=== PATIENT | male | born 1970 | race American Indian/Alaskan Native ===

== ENCOUNTER 2016-10-01 08:33 | Outpatient (CLI) | payer MEDICARE ==
[2016-10-01] MEDS ORDERED: XYLOCAINE TOPICAL 4% TP ONE (09:11)
== END 2016-10-01 08:34 | disposition home or self-care (01) ==
LOC: WOUND 08:33
PROVIDERS: ATTEND Internal Medicine
DX: T87.89 Other complications of amputation stump (principal); E13.43 Other specified diabetes mellitus with diabetic autonomic (poly)neuropathy; E11.65 Type 2 diabetes mellitus with hyperglycemia; I10 Essential (primary) hypertension; E11.40 Type 2 diabetes mellitus with diabetic neuropathy, unspecified; E11.52 Type 2 diabetes mellitus with diabetic peripheral angiopathy with gangrene; E46 Unspecified protein-calorie malnutrition; Z87.891 Personal history of nicotine dependence; Y83.5 Amputation of limb(s) as the cause of abnormal reaction of the patient, or of later complication, without mention of misadventure at the time of the procedure
CPT/HCPCS: 11042; G0463

== ENCOUNTER 2016-10-02 08:50 | Outpatient (CLI) | payer MEDICARE | END 2016-10-02 08:51 | disposition home or self-care (01) | LOC: WOUND 08:50 | PROVIDERS: ATTEND Surgery | DX: T86.828 Other complications of skin graft (allograft) (autograft) (principal); E11.65 Type 2 diabetes mellitus with hyperglycemia; E13.43 Other specified diabetes mellitus with diabetic autonomic (poly)neuropathy; E11.52 Type 2 diabetes mellitus with diabetic peripheral angiopathy with gangrene; I10 Essential (primary) hypertension; E11.40 Type 2 diabetes mellitus with diabetic neuropathy, unspecified; E46 Unspecified protein-calorie malnutrition; Z87.891 Personal history of nicotine dependence; Y83.2 Surgical operation with anastomosis, bypass or graft as the cause of abnormal reaction of the patient, or of later complication, without mention of misadventure at the time of the procedure | CPT/HCPCS: 82962; G0277; 99183 ==

== ENCOUNTER 2016-10-03 09:45 | Outpatient (CLI) | payer MEDICARE | END 2016-10-03 09:46 | disposition home or self-care (01) | LOC: WOUND 09:45 | PROVIDERS: ATTEND Surgery | DX: T86.828 Other complications of skin graft (allograft) (autograft) (principal); E11.65 Type 2 diabetes mellitus with hyperglycemia; E11.52 Type 2 diabetes mellitus with diabetic peripheral angiopathy with gangrene; E11.43 Type 2 diabetes mellitus with diabetic autonomic (poly)neuropathy; E46 Unspecified protein-calorie malnutrition; I10 Essential (primary) hypertension; Z89.422 Acquired absence of other left toe(s); Z98.62 Peripheral vascular angioplasty status; Z87.891 Personal history of nicotine dependence; Y83.2 Surgical operation with anastomosis, bypass or graft as the cause of abnormal reaction of the patient, or of later complication, without mention of misadventure at the time of the procedure | CPT/HCPCS: 82962; G0277; 99183 ==

== ENCOUNTER 2016-10-04 08:52 | Outpatient (CLI) | payer MEDICARE | END 2016-10-04 08:53 | disposition home or self-care (01) | LOC: WOUND 08:52 | PROVIDERS: ATTEND Internal Medicine | DX: T87.89 Other complications of amputation stump (principal); E11.622 Type 2 diabetes mellitus with other skin ulcer; L97.821 Non-pressure chronic ulcer of other part of left lower leg limited to breakdown of skin; L97.811 Non-pressure chronic ulcer of other part of right lower leg limited to breakdown of skin; E11.65 Type 2 diabetes mellitus with hyperglycemia; E13.43 Other specified diabetes mellitus with diabetic autonomic (poly)neuropathy; E11.52 Type 2 diabetes mellitus with diabetic peripheral angiopathy with gangrene; E11.40 Type 2 diabetes mellitus with diabetic neuropathy, unspecified; E46 Unspecified protein-calorie malnutrition; I10 Essential (primary) hypertension; Z87.891 Personal history of nicotine dependence; Y83.5 Amputation of limb(s) as the cause of abnormal reaction of the patient, or of later complication, without mention of misadventure at the time of the procedure | CPT/HCPCS: 82962; G0277; 99183 ==

== ENCOUNTER 2016-10-05 09:10 | Outpatient (CLI) | payer MEDICARE | END 2016-10-05 09:11 | disposition home or self-care (01) | LOC: WOUND 09:10 | PROVIDERS: ATTEND Podiatrist | DX: T87.89 Other complications of amputation stump (principal); E11.622 Type 2 diabetes mellitus with other skin ulcer; L97.821 Non-pressure chronic ulcer of other part of left lower leg limited to breakdown of skin; L97.811 Non-pressure chronic ulcer of other part of right lower leg limited to breakdown of skin; E11.52 Type 2 diabetes mellitus with diabetic peripheral angiopathy with gangrene; E11.65 Type 2 diabetes mellitus with hyperglycemia; E11.43 Type 2 diabetes mellitus with diabetic autonomic (poly)neuropathy; I10 Essential (primary) hypertension; E46 Unspecified protein-calorie malnutrition; Y83.5 Amputation of limb(s) as the cause of abnormal reaction of the patient, or of later complication, without mention of misadventure at the time of the procedure | CPT/HCPCS: 82962; G0277; 99183 ==

== ENCOUNTER 2016-10-08 08:56 | Outpatient (CLI) | payer MEDICARE | END 2016-10-08 08:57 | disposition home or self-care (01) | LOC: WOUND 08:56 | PROVIDERS: ATTEND Surgery | DX: T87.89 Other complications of amputation stump (principal); E11.622 Type 2 diabetes mellitus with other skin ulcer; L97.821 Non-pressure chronic ulcer of other part of left lower leg limited to breakdown of skin; L97.811 Non-pressure chronic ulcer of other part of right lower leg limited to breakdown of skin; E11.65 Type 2 diabetes mellitus with hyperglycemia; E11.43 Type 2 diabetes mellitus with diabetic autonomic (poly)neuropathy; E11.52 Type 2 diabetes mellitus with diabetic peripheral angiopathy with gangrene; E43 Unspecified severe protein-calorie malnutrition; I10 Essential (primary) hypertension; E11.40 Type 2 diabetes mellitus with diabetic neuropathy, unspecified; Z98.62 Peripheral vascular angioplasty status; Z87.891 Personal history of nicotine dependence; Y83.5 Amputation of limb(s) as the cause of abnormal reaction of the patient, or of later complication, without mention of misadventure at the time of the procedure | CPT/HCPCS: 82962; G0277; 99183 ==

== ENCOUNTER 2016-10-09 09:32 | Outpatient (CLI) | payer MEDICARE | END 2016-10-09 09:33 | disposition home or self-care (01) | LOC: WOUND 09:32 | PROVIDERS: ATTEND Surgery | DX: T87.89 Other complications of amputation stump (principal); E11.622 Type 2 diabetes mellitus with other skin ulcer; L97.821 Non-pressure chronic ulcer of other part of left lower leg limited to breakdown of skin; L97.811 Non-pressure chronic ulcer of other part of right lower leg limited to breakdown of skin; E11.65 Type 2 diabetes mellitus with hyperglycemia; E13.43 Other specified diabetes mellitus with diabetic autonomic (poly)neuropathy; E11.52 Type 2 diabetes mellitus with diabetic peripheral angiopathy with gangrene; I10 Essential (primary) hypertension; E43 Unspecified severe protein-calorie malnutrition; Z87.891 Personal history of nicotine dependence; Y83.5 Amputation of limb(s) as the cause of abnormal reaction of the patient, or of later complication, without mention of misadventure at the time of the procedure | CPT/HCPCS: 82962; G0277; 99183 ==

== ENCOUNTER 2016-10-10 09:44 | Outpatient (CLI) | payer MEDICARE | END 2016-10-10 09:45 | disposition home or self-care (01) | LOC: WOUND 09:44 | PROVIDERS: ATTEND Surgery | DX: T87.89 Other complications of amputation stump (principal); E11.622 Type 2 diabetes mellitus with other skin ulcer; L97.821 Non-pressure chronic ulcer of other part of left lower leg limited to breakdown of skin; L97.811 Non-pressure chronic ulcer of other part of right lower leg limited to breakdown of skin; E11.65 Type 2 diabetes mellitus with hyperglycemia; E13.43 Other specified diabetes mellitus with diabetic autonomic (poly)neuropathy; E11.52 Type 2 diabetes mellitus with diabetic peripheral angiopathy with gangrene; I10 Essential (primary) hypertension; E43 Unspecified severe protein-calorie malnutrition; Z98.62 Peripheral vascular angioplasty status; Z87.891 Personal history of nicotine dependence; Y83.5 Amputation of limb(s) as the cause of abnormal reaction of the patient, or of later complication, without mention of misadventure at the time of the procedure | CPT/HCPCS: 82962; G0277; 99183 ==

== ENCOUNTER 2016-10-11 08:44 | Outpatient (CLI) | payer MEDICARE ==
[2016-10-11] MEDS ORDERED: XYLOCAINE TOPICAL 4% TP ONE ×2 (09:12→09:30)
== END 2016-10-11 08:45 | disposition home or self-care (01) ==
LOC: WOUND 08:44
PROVIDERS: ATTEND Nurse Practitioner
DX: T87.89 Other complications of amputation stump (principal); E11.622 Type 2 diabetes mellitus with other skin ulcer; L97.811 Non-pressure chronic ulcer of other part of right lower leg limited to breakdown of skin; E11.65 Type 2 diabetes mellitus with hyperglycemia; E13.43 Other specified diabetes mellitus with diabetic autonomic (poly)neuropathy; E11.52 Type 2 diabetes mellitus with diabetic peripheral angiopathy with gangrene; E11.40 Type 2 diabetes mellitus with diabetic neuropathy, unspecified; E43 Unspecified severe protein-calorie malnutrition; I10 Essential (primary) hypertension; Z87.891 Personal history of nicotine dependence; Y83.5 Amputation of limb(s) as the cause of abnormal reaction of the patient, or of later complication, without mention of misadventure at the time of the procedure
CPT/HCPCS: 11042; 11045; 82962; G0277; 99183

== ENCOUNTER 2016-10-12 09:02 | Outpatient (CLI) | payer MEDICARE | END 2016-10-12 09:03 | disposition home or self-care (01) | LOC: WOUND 09:02 | PROVIDERS: ATTEND Podiatrist | DX: T87.89 Other complications of amputation stump (principal); E11.622 Type 2 diabetes mellitus with other skin ulcer; L97.821 Non-pressure chronic ulcer of other part of left lower leg limited to breakdown of skin; L97.811 Non-pressure chronic ulcer of other part of right lower leg limited to breakdown of skin; E11.52 Type 2 diabetes mellitus with diabetic peripheral angiopathy with gangrene; E11.65 Type 2 diabetes mellitus with hyperglycemia; E13.43 Other specified diabetes mellitus with diabetic autonomic (poly)neuropathy; E11.40 Type 2 diabetes mellitus with diabetic neuropathy, unspecified; I10 Essential (primary) hypertension; E43 Unspecified severe protein-calorie malnutrition; Z87.891 Personal history of nicotine dependence; Y83.5 Amputation of limb(s) as the cause of abnormal reaction of the patient, or of later complication, without mention of misadventure at the time of the procedure | CPT/HCPCS: 82962; G0277; 99183 ==

== ENCOUNTER 2016-10-16 10:00 | Outpatient (CLI) | payer MEDICARE | END 2016-10-16 10:01 | disposition home or self-care (01) | LOC: WOUND 10:00 | PROVIDERS: ATTEND Surgery | DX: T87.89 Other complications of amputation stump (principal); E11.622 Type 2 diabetes mellitus with other skin ulcer; L97.821 Non-pressure chronic ulcer of other part of left lower leg limited to breakdown of skin; L97.811 Non-pressure chronic ulcer of other part of right lower leg limited to breakdown of skin; E11.65 Type 2 diabetes mellitus with hyperglycemia; E13.43 Other specified diabetes mellitus with diabetic autonomic (poly)neuropathy; E11.52 Type 2 diabetes mellitus with diabetic peripheral angiopathy with gangrene; I10 Essential (primary) hypertension; E43 Unspecified severe protein-calorie malnutrition; Z87.891 Personal history of nicotine dependence; Y83.5 Amputation of limb(s) as the cause of abnormal reaction of the patient, or of later complication, without mention of misadventure at the time of the procedure | CPT/HCPCS: 82962; G0277; 99183 ==

== ENCOUNTER 2016-10-17 09:36 | Outpatient (CLI) | payer MEDICARE | END 2016-10-17 09:37 | disposition home or self-care (01) | LOC: WOUND 09:36 | PROVIDERS: ATTEND Surgery | DX: T86.828 Other complications of skin graft (allograft) (autograft) (principal); E11.52 Type 2 diabetes mellitus with diabetic peripheral angiopathy with gangrene; E13.43 Other specified diabetes mellitus with diabetic autonomic (poly)neuropathy; E11.65 Type 2 diabetes mellitus with hyperglycemia; I10 Essential (primary) hypertension; E11.40 Type 2 diabetes mellitus with diabetic neuropathy, unspecified; Z87.891 Personal history of nicotine dependence; Y83.2 Surgical operation with anastomosis, bypass or graft as the cause of abnormal reaction of the patient, or of later complication, without mention of misadventure at the time of the procedure | CPT/HCPCS: 82962; G0277; 99183 ==

== ENCOUNTER 2016-10-18 09:33 | Outpatient (CLI) | payer MEDICARE | END 2016-10-18 09:34 | disposition home or self-care (01) | LOC: WOUND 09:33 | PROVIDERS: ATTEND Nurse Practitioner | DX: T87.89 Other complications of amputation stump (principal); E11.622 Type 2 diabetes mellitus with other skin ulcer; L97.821 Non-pressure chronic ulcer of other part of left lower leg limited to breakdown of skin; L97.811 Non-pressure chronic ulcer of other part of right lower leg limited to breakdown of skin; E11.52 Type 2 diabetes mellitus with diabetic peripheral angiopathy with gangrene; E11.65 Type 2 diabetes mellitus with hyperglycemia; E13.43 Other specified diabetes mellitus with diabetic autonomic (poly)neuropathy; I10 Essential (primary) hypertension; E43 Unspecified severe protein-calorie malnutrition; Z87.891 Personal history of nicotine dependence; Y83.5 Amputation of limb(s) as the cause of abnormal reaction of the patient, or of later complication, without mention of misadventure at the time of the procedure | CPT/HCPCS: 82962; G0277; 99183 ==

== ENCOUNTER 2016-10-18 13:23 | Inpatient (IN) | payer MEDICARE ==
[2016-10-18] MEDS ORDERED: NACL 0.9% 500 ML 500 ML IV ONE (13:37)
[2016-10-18 14:20] LABS: Hematocrit 32.4 % (35.5-45.6); Hemoglobin 9.9 gm/dl (11.8-15.2); Mean Corpuscular HGB Conc 31 % (32-34); Mean Corpuscular Volume 84 fl (84-94); Platelet Count 414 K/mm3 (140-440); Red Blood Count 3.89 M/mm3 (3.65-5.03)
[2016-10-18 14:25] LABS: Alanine Aminotransferase 48 units/L (7-56); Albumin 3.1 g/dL (3.9-5); Albumin/Globulin Ratio 0.6 %; Alkaline Phosphatase 220 units/L (35-129); Anion Gap 22 mmol/L; BUN/Creatinine Ratio 16.66; Blood Urea Nitrogen 10 mg/dL (9-20); Calcium 9.1 mg/dL (8.4-10.2); Carbon Dioxide 25 mmol/L (22-30); Chloride 91.3 mmol/L (98-107); Glucose 349 mg/dL (75-100); Potassium 4.4 mmol/L (3.6-5.0); Sodium 134 mmol/L (137-145); Total Protein 8.1 g/dL (6.3-8.2)
[2016-10-18 14:27] LABS: White Blood Count 22.7 K/mm3 (4.5-11.0)
[2016-10-18 14:28] LABS: Mean Corpuscular Hemoglobin 26 pg (28-32); Red Cell Distribution Width 30.1 % (13.2-15.2)
[2016-10-18 14:32] LABS: INR 1.23 (0.87-1.13)
--- NOTE | 2016-10-18 15:14 | XRay Report ---
AP CHEST: History: Shortness of breath. AP view of the chest demonstrates a normal mediastinal and cardiac contour with clear lungs and normal bony and soft tissue structures. IMPRESSION: Normal AP chest.
[2016-10-18] MEDS ORDERED: ZOSYN/NS 4.5GM/100ML 4.5 GM/100 ML VIAL IV ONE (15:47)
[2016-10-18] MEDS ORDERED: VANCOMYCIN/NS 1 GM/250 ML 1 GM/250 ML BAG IV ONE (15:47)
[2016-10-18] MEDS ORDERED: NACL 0.9% 1000 ML 1,000 ML IV ONE (15:47)
[2016-10-18 15:49] LABS: Basophils % (Manual) 0 % (0.0-1.8); Blastocytes % (Manual) 0 %; Eosinophils % (Manual) 0 % (0.0-4.3)
[2016-10-18 15:50] LABS: Anisocytosis 3+; Hypochromasia 1+
[2016-10-18 15:52] LABS: Diff Status Complete
--- NOTE | 2016-10-18 16:45 | XRay Report ---
Left foot 3 views. History: Pain. Findings: Since the previous study, there has been amputation of the toes at the level of the distal metatarsals. No focal bony changes are seen. There is extensive soft tissue swelling at the level of the amputations. There no other significant findings.
[2016-10-18 18:22] LABS: Bilirubin,Urine NEG (Negative); Blood,Urine SM (Negative); Ketones,Urine 20 mg/dL (Negative); Leukocyte Esterase,Urine NEG (Negative); Nitrite,Urine NEG (Negative); Urobilinogen,Urine < 2.0 mg/dL (<2.0)
--- NOTE | 2016-10-18 18:24 | Emergency Department Report ---
- General Chief Complaint: Wound/Laceration Stated Complaint: INFECTED LEG Time Seen by Provider: 10/18/16 15:39 Source: patient Mode of arrival: Wheelchair Limitations: Physical Limitation - History of Present Illness -: Gradual Extremity Location: Left: Ankle, Foot Place: home Associated Symptoms: pain, loss of feeling/numbness, fever - Related Data Previous Rx's Medication Instructions Recorded Last Taken Type Enoxaparin [Lovenox] 70 mg SUB-Q Q12HR 7 Days 10/23/13 Unknown Rx Enoxaparin [Lovenox] 150 mg SQ Q12HR #10 syringe 09/25/16 Unknown Rx Clindamycin [Clindamycin CAP] 150 mg PO TID #30 capsule 09/28/16 Unknown Rx Enoxaparin [Lovenox] 40 mg SQ Q12HR #10 syringe 09/28/16 Unknown Rx Gabapentin 600 mg PO TID #90 09/28/16 Unknown Rx Humalog Kwikpen 200 UNITS/ML 30 units SQ TID #30 09/28/16 Unknown Rx Insulin NPH/Regular [NovoLIN 70/30] 16 unit SUB-Q BIDDIAB 30 Days 09/28/16 Unknown Rx Lisinopril [Zestril TAB] 20 mg PO QDAY #30 tablet 09/28/16 Unknown Rx Warfarin [Coumadin] 5 mg PO DAILY@1700 #30 tablet 09/28/16 Unknown Rx oxyCODONE /ACETAMINOPHEN [Percocet 1 tab PO Q6H PRN #30 tablet 09/28/16 Unknown Rx 5/325 mg] Clopidogrel [Plavix] 75 mg PO QDAY #30 tablet 09/29/16 Unknown Rx Allergies Allergy/AdvReac Type Severity Reaction Status Date / Time No Known Allergies Allergy Verified 10/18/16 13:37 ED Review of Systems ROS: Stated complaint: INFECTED LEG Other details as noted in HPI Comment: All other systems reviewed and negative ED Past Medical Hx - Past Medical History Hx Hypertension: Yes Hx Congestive Heart Failure: No Hx Diabetes: Yes (Type 1) Hx Pulmonary Embolism: Yes (2013) Hx Sickle Cell Disease: No Hx Arthritis: Yes (present in back) Hx Asthma: No Hx COPD: Yes Hx HIV: No Additional medical history: diabetic neuropathy - Surgical History Additional Surgical History: ?abd surgery secondary to blockage. SPLEEN SURGERY. LEFT TOES AMPUTATED - Social History Smoking Status: Former Smoker Substance Use Type: Prescribed - Medications Home Medications: Home Medications Medication Instructions Recorded Confirmed Last Taken Type Enoxaparin [Lovenox] 70 mg SUB-Q Q12HR 7 Days 10/23/13 Unknown Rx Enoxaparin [Lovenox] 150 mg SQ Q12HR #10 syringe 09/25/16 Unknown Rx Clindamycin [Clindamycin CAP] 150 mg PO TID #30 capsule 09/28/16 Unknown Rx Enoxaparin [Lovenox] 40 mg SQ Q12HR #10 syringe 09/28/16 Unknown Rx Gabapentin 600 mg PO TID #90 09/28/16 Unknown Rx Humalog Kwikpen 200 UNITS/ML 30 units SQ TID #30 09/28/16 Unknown Rx Insulin NPH/Regular [NovoLIN 70/30] 16 unit SUB-Q BIDDIAB 30 Days 09/28/16 Unknown Rx Lisinopril [Zestril TAB] 20 mg PO QDAY #30 tablet 09/28/16 Unknown Rx Warfarin [Coumadin] 5 mg PO DAILY@1700 #30 tablet 09/28/16 Unknown Rx oxyCODONE /ACETAMINOPHEN [Percocet 1 tab PO Q6H PRN #30 tablet 09/28/16 Unknown Rx 5/325 mg] Clopidogrel [Plavix] 75 mg PO QDAY #30 tablet 09/29/16 Unknown Rx ED Physical Exam - General Limitations: Physical Limitation General appearance: alert, in no apparent distress - Head Head exam: Present: atraumatic, normocephalic - Eye Eye exam: Present: normal appearance - ENT ENT exam: Present: mucous membranes moist - Neck Neck exam: Present: normal inspection - Respiratory Respiratory exam: Present: normal lung sounds bilaterally. Absent: respiratory distress - Cardiovascular Cardiovascular Exam: Present: regular rate, normal rhythm. Absent: systolic murmur, diastolic murmur, rubs, gallop - GI/Abdominal GI/Abdominal exam: Present: soft, normal bowel sounds - Rectal Rectal exam: Present: deferred - Extremities Exam Extremities exam: Present: normal inspection - Back Exam Back exam: Present: normal inspection - Neurological Exam Neurological exam: Present: alert, oriented X3 - Psychiatric Psychiatric exam: Present: normal affect, normal mood - Skin Skin exam: Present: erythema. Absent: rash, cyanosis, diaphoretic, urticaria, vesicles, petechiae, pallor, abrasion, ecchymosis (erythema and swelling in the midfoot , progressing celullitis, decrease pedal pulses.) ED Course Vital Signs 10/18/16 10/18/16 10/18/16 13:29 16:40 16:50 Temperature 98.9 F Pulse Rate 103 H 99 H Respiratory 17 12 Rate Blood Pressure 111/71 143/81 143/81 O2 Sat by Pulse 100 100 Oximetry ED Medical Decision Making - Lab Data Result diagrams: 10/18/16 13:47 10/18/16 13:47 - Medical Decision Making will need admission for extensive and progressive cellulitis on his left mid foot. abx given , cxs done and spoke to dr. cole and agree with plan for admission,. Critical care attestation.: If time is entered above; I have spent that time in minutes in the direct care of this critically ill patient, excluding procedure time. ED Disposition Clinical Impression: Ischemic foot, Peripheral vascular disease, Cellulitis, Osteomyelitis Disposition: OP ADMITTED IP TO THIS HOSP Is pt being admited?: Yes Does the pt Need Aspirin: No Condition: Fair Referrals: PRIMARY CARE, [Primary Care Provider] - 3-5 Days Time of Disposition: 18:26
--- NOTE | 2016-10-18 18:33 | Admit Criteria Form ---
Admission Criteria Documentation: CELLULITIS Clinical Indications for Admission to Inpatient Care (Place 'X' for any and all applicable criteria): Admission is indicated for ANY ONE of the following(1)(2)(3)(4)(5): [X]I. Limb-threatening infection [ ]II. High-risk comorbid condition as indicated by ANY ONE of the following: [ ]a) Uncontrolled diabetes (eg, HbA1c greater than 10% (0.1)) [ ]b) Cirrhosis [ ]c) Neutropenia [ ]d) Asplenia [ ]e) Immunosuppression [ ]f) Symptomatic heart failure [ ]III. Failure of outpatient therapy as indicated by ALL of the following: [ ]a) Progression or no improvement after adequate trial (minimum of 48 hours, with longer period for stable lower extremity infection) [ ]b) Adequate antibiotic regimen as indicated by use of ANY ONE of the following: [ ]i) First-generation cephalosporin (e.g., cephalexin) [ ]ii) Antistaphylococcal penicillin (e.g., dicloxacillin) [ ]iii) Penicillin-allergic patient regimen (clindamycin, extended-spectrum fluoroquinolone, or doxycycline) [ ]iv) Resistant organism (eg, methicillin-resistant Staphylococcus aureus) regimen (6) [ ]c) Outpatient intravenous therapy regimen is not appropriate due to ANY ONE of the following. (7)(8)(9)(10): [ ]i) It was tried and was not successful (eg, progression of infection). [ ]ii) It is not available or cannot be arranged in a clinically appropriate time frame (e.g., the next day). [ ]iii) Clinical presentation (eg, acuity of infection, rapidity of progression, confirmed or suspected bacteremia) is judged to require ALL of the following: [ ]1) Immediate initiation of intravenous therapy ( eg, cannot wait for next day) [ ]2) Intensity of patient monitoring and observation (eg, vital sign measurement, checks for infection progression) that cannot be provided at other than inpatient level of care [ ]IV. Mental status changes [ ]V. Bacteremia [ ]. Hemodynamic instability [ ]VII. Suspected necrotizing soft tissue infection (e.g., gas in tissue)(11)( 12) [ ]VIII. Orbital infection (13)(14) [ ]IX. Associated surgical procedure (e.g., abscess drainage, debridement) not amenable to outpatient, emergency department, or observation care [ ]X. Cutaneous gangrene [ ]XI. High fever (temperature greater than 39.5 degrees C (103.1 degrees F) (oral)) not responsive to outpatient, emergency department, or observation care therapy [ ]XIII. Inpatient admission required rather than observation care (Also use Cellulitis: Observation Care as appropriate) because of ANY ONE of the following : [ ]a) Periorbital or perineal infection that is severe or worsening [ ]b) Severe pain requiring acute inpatient management [ ]c) IV fluid to replace significant ongoing (e.g., for over 24 hours) losses (greater than 3L/m2 per day) [ ]d) Compartment syndrome monitoring (17) [ ]e) Strict or protective (eg, laminar flow) isolation [ ]f) Urgent debridement or skin grafting [ ]g) Bone or joint debridement [ ]h) Immediate inpatient surgery [ ]i) Other condition, treatment or monitoring requiring inpatient admission Extended stay beyond goal length of stay may be needed for (1)(18): [ ]a) Necrotizing soft tissue infection or fasciitis [ ]b) Gram-negative infection [ ]c) Methicillin-resistant Staphylococcal aureus (MRSA) infection [ ]d) Peripheral venous insufficiency with cellulitis [ ]e) Extensive edema [ ]f) Sepsis or continued Hemodynamic instability [ ]g) Continued high fever or mental status change [ ]h) Bacteremia [ ]i) Active serious comorbid conditions ( eg, heart failure, renal insufficiency) The original [employer] content created by [employer] has been revised. The portions of the content which have been revised are identified through the use of italic text or in bold, and [facility] has neither reviewed nor approved the modified material. All other unmodified content is copyright [facility] Please see references footnoted in the original [facility] edition 2016 Admission Criteria Met: Yes
[2016-10-18] MEDS ORDERED: ZOFRAN IV PRN ×2 (20:14→21:58)
[2016-10-18] MEDS: DILAUDID IV PRN (20:22)
[2016-10-18] MEDS ORDERED: PERCOCET 5/325 PO PRN (21:56)
--- NOTE | 2016-10-18 21:56 | Event Note ---
Date: 10/18/16 See H/p in reports Gangrene L Foot at surgical site S/p Amputation of Toes l foot IDDM PN HTN PVD
[2016-10-18] MEDS ORDERED: TYLENOL PO PRN (21:58)
[2016-10-18] MEDS ORDERED: DULCOLAX PR PRN (21:58)
[2016-10-18] MEDS ORDERED: AMBIEN PO PRN (21:58)
[2016-10-18] MEDS ORDERED: MILK OF MAGNESIA PO PRN (21:58)
[2016-10-18] MEDS ORDERED: INSULIN LISPRO 30 UNIT SC SCH (22:00)
[2016-10-18] MEDS ORDERED: NACL 0.9% 1000 ML 1,000 ML IV SCH (22:00)
[2016-10-18] MEDS ORDERED: VANCOMYCIN PHARMACY TO DOSE IV SCH (23:00)
[2016-10-19] MEDS: ZESTRIL PO SCH ×2 (00:24→10:45)
[2016-10-19] MEDS: ZOSYN/NS 4.5GM/100ML 4.5 GM/100 ML VIAL IV SCH ×3 (01:00→20:16)
[2016-10-19] MEDS: VANCOMYCIN/NS 1 GM/250 ML 1 GM/250 ML BAG IV SCH ×2 (03:55→18:09)
[2016-10-19] MEDS: DILAUDID IV PRN ×2 (06:39→15:31)
[2016-10-19 07:37] LABS: Hematocrit 29.6 % (35.5-45.6); Hemoglobin 9.3 gm/dl (11.8-15.2); Mean Corpuscular HGB Conc 31 % (32-34); Mean Corpuscular Hemoglobin 26 pg (28-32); Mean Corpuscular Volume 83 fl (84-94); Platelet Count 365 K/mm3 (140-440); Red Blood Count 3.56 M/mm3 (3.65-5.03); Red Cell Distribution Width 30.1 % (13.2-15.2); White Blood Count 16.4 K/mm3 (4.5-11.0)
--- NOTE | 2016-10-19 07:46 | Progress Note ---
Assessment and Plan Assessment and plan: 46-year-old male with extensive history of peripheral arterial disease, that status post a left TMA on 09/27/16, history of PE, diabetes, anemia of chronic disease, 1. sepsis due to Left foot cellulitis/gangrene- due to peripheral arterial disease continue IV abx ID input appreciated, orthopedic surgery input appreciated Appears that his main issue is her for arterial disease, and surgical flap gangrene. Past history surgery consult for possible revascularization or higher level amputation 2. DM with hyperglycemia -continue insulins 3. hx of PE continue warfarin 4. Anemia of Chronic disease stable, monitor hg 5. HTN continue lisinopril History Interval history: She Seems to Complain of Left Foot Pain and Swelling, Pain Is 8 Out Of 10, Dull , New Relieving Factors, No Exacerbating Factors, Denies Fevers and Denies Chills Hospitalist Physical - Physical exam Narrative exam: General: Patient appears well in no distress HEENT: MMM, EOMI cardiac: S1-S2 heard lungs: clear to auscultation, abdomen: soft, nontender, nondistended bowel sounds positive extremities: Left foot swelling, recent TMA with stitches still in place Significant edema, erythema and tenderness, no fluctuance Skin: Erythema of left foot Neuro: no focal deficit Psych: appropriate behavior and mood, cognition intact - Constitutional Vitals: Temp Pulse Resp BP Pulse Ox 98 F 88 18 132/77 98 10/18/16 22:42 10/18/16 22:42 10/18/16 22:42 10/18/16 22:42 10/18/16 22:42 Results - Labs CBC & Chem 7: 10/19/16 07:12 10/19/16 07:12 Labs: Laboratory Last Values WBC 16.4 K/mm3 (4.5-11.0) H 10/19/16 07:12 RBC 3.56 M/mm3 (3.65-5.03) L 10/19/16 07:12 Hgb 9.3 gm/dl (11.8-15.2) L 10/19/16 07:12 Hct 29.6 % (35.5-45.6) L 10/19/16 07:12 MCV 83 fl (84-94) L 10/19/16 07:12 MCH 26 pg (28-32) L 10/19/16 07:12 MCHC 31 % (32-34) L 10/19/16 07:12 RDW 30.1 % (13.2-15.2) H 10/19/16 07:12 Plt Count 365 K/mm3 (140-440) 10/19/16 07:12 Lymph % (Auto) [employer] 10/19/16 07:12 [place] % (Auto) [employer] 10/19/16 07:12 Eos % (Auto) [employer] 10/19/16 07:12 Baso % (Auto) [employer] 10/19/16 07:12 Lymph # [employer] 10/19/16 07:12 [place] # [employer] 10/19/16 07:12 Eos # [employer] 10/19/16 07:12 Baso # [employer] 10/19/16 07:12 Add Manual Diff Complete 10/18/16 13:47 Total Counted 100 10/18/16 13:47 Seg Neutrophils % [employer] 10/19/16 07:12 Seg Neuts % (Manual) 87.0 % (40.0-70.0) H 10/18/16 13:47 Band Neutrophils % 4.0 % 10/18/16 13:47 Lymphocytes % (Manual) 6.0 % (13.4-35.0) L 10/18/16 13:47 Reactive Lymphs % (Man) 0 % 10/18/16 13:47 Monocytes % (Manual) 3.0 % (0.0-7.3) 10/18/16 13:47 Eosinophils % (Manual) 0 % (0.0-4.3) 10/18/16 13:47 Basophils % (Manual) 0 % (0.0-1.8) 10/18/16 13:47 Metamyelocytes % 0 % 10/18/16 13:47 Myelocytes % 0 % 10/18/16 13:47 Promyelocytes % 0 % 10/18/16 13:47 Blast Cells % 0 % 10/18/16 13:47 Nucleated RBC % Not Reportable 10/18/16 13:47 Seg Neutrophils # [employer] 10/19/16 07:12 Seg Neutrophils # Man 19.7 K/mm3 (1.8-7.7) H 10/18/16 13:47 Band Neutrophils # 0.9 K/mm3 10/18/16 13:47 Lymphocytes # (Manual) 1.4 K/mm3 (1.2-5.4) 10/18/16 13:47 Abs React Lymphs (Man) 0.0 K/mm3 10/18/16 13:47 Monocytes # (Manual) 0.7 K/mm3 (0.0-0.8) 10/18/16 13:47 Eosinophils # (Manual) 0.0 K/mm3 (0.0-0.4) 10/18/16 13:47 Basophils # (Manual) 0.0 K/mm3 (0.0-0.1) 10/18/16 13:47 Metamyelocytes # 0.0 K/mm3 10/18/16 13:47 Myelocytes # 0.0 K/mm3 10/18/16 13:47 Promyelocytes # 0.0 K/mm3 10/18/16 13:47 Blast Cells # 0.0 K/mm3 10/18/16 13:47 WBC Morphology Not Reportable 10/18/16 13:47 Hypersegmented Neuts Not Reportable 10/18/16 13:47 Hyposegmented Neuts Not Reportable 10/18/16 13:47 Hypogranular Neuts Not Reportable 10/18/16 13:47 Smudge Cells Not Reportable 10/18/16 13:47 Toxic Granulation Not Reportable 10/18/16 13:47 Toxic Vacuolation Not Reportable 10/18/16 13:47 Dohle Bodies Not Reportable 10/18/16 13:47 Pelger-Huet Anomaly Not Reportable 10/18/16 13:47 Ezra Rods Not Reportable 10/18/16 13:47 Platelet Estimate Not Reportable 10/18/16 13:47 Clumped Platelets Not Reportable 10/18/16 13:47 Plt Clumps, EDTA Not Reportable 10/18/16 13:47 Large Platelets Not Reportable 10/18/16 13:47 Giant Platelets Not Reportable 10/18/16 13:47 Platelet Satelliting Not Reportable 10/18/16 13:47 Plt Morphology Comment Not Reportable 10/18/16 13:47 RBC Morphology Not Reportable 10/18/16 13:47 Dimorphic RBCs Yes 10/18/16 13:47 Polychromasia Not Reportable 10/18/16 13:47 Hypochromasia 1+ 10/18/16 13:47 Poikilocytosis Not Reportable 10/18/16 13:47 Anisocytosis 3+ 10/18/16 13:47 Microcytosis Not Reportable 10/18/16 13:47 Macrocytosis Not Reportable 10/18/16 13:47 Spherocytes Not Reportable 10/18/16 13:47 Pappenheimer Bodies Not Reportable 10/18/16 13:47 Sickle Cells Not Reportable 10/18/16 13:47 Target Cells Not Reportable 10/18/16 13:47 Tear Drop Cells Not Reportable 10/18/16 13:47 Ovalocytes Not Reportable 10/18/16 13:47 Helmet Cells Not Reportable 10/18/16 13:47 [place] Bodies Not Reportable 10/18/16 13:47 [place] Rings Not Reportable 10/18/16 13:47 Yaya Cells Not Reportable 10/18/16 13:47 Bite Cells Not Reportable 10/18/16 13:47 Crenated Cell Not Reportable 10/18/16 13:47 Elliptocytes Not Reportable 10/18/16 13:47 Acanthocytes (Spur) Not Reportable 10/18/16 13:47 Rouleaux Not Reportable 10/18/16 13:47 Hemoglobin C Crystals Not Reportable 10/18/16 13:47 Schistocytes Not Reportable 10/18/16 13:47 Malaria parasites Not Reportable 10/18/16 13:47 Yosef Bodies Not Reportable 10/18/16 13:47 Hem Pathologist Commnt No 10/18/16 13:47 PT 15.4 Sec. (12.2-14.9) H 10/18/16 13:47 INR 1.23 (0.87-1.13) H 10/18/16 13:47 VBG pH 7.351 (7.320-7.420) 10/18/16 13:47 Sodium 134 mmol/L (137-145) L 10/18/16 13:47 Potassium 4.4 mmol/L (3.6-5.0) 10/18/16 13:47 Chloride 91.3 mmol/L (98-107) L 10/18/16 13:47 Carbon Dioxide 25 mmol/L (22-30) 10/18/16 13:47 Anion Gap 22 mmol/L 10/18/16 13:47 BUN 10 mg/dL (9-20) 10/18/16 13:47 Creatinine 0.6 mg/dL (0.8-1.5) L 10/18/16 13:47 Estimated GFR > 60 ml/min 10/18/16 13:47 BUN/Creatinine Ratio 16.66 % 10/18/16 13:47 Glucose 349 mg/dL (75-100) H 10/18/16 13:47 POC Glucose 101 (70-105) 10/19/16 06:32 Lactic Acid 1.30 mmol/L (0.7-2.0) 10/18/16 18:08 Calcium 9.1 mg/dL (8.4-10.2) 10/18/16 13:47 Total Bilirubin 0.30 mg/dL (0.1-1.2) 10/18/16 13:47 AST 43 units/L (5-40) H 10/18/16 13:47 ALT 48 units/L (7-56) 10/18/16 13:47 Alkaline Phosphatase 220 units/L (35-129) H 10/18/16 13:47 Total Protein 8.1 g/dL (6.3-8.2) 10/18/16 13:47 Albumin 3.1 g/dL (3.9-5) L 10/18/16 13:47 Albumin/Globulin Ratio 0.6 % 10/18/16 13:47 Urine Color Yellow (Yellow) 10/18/16 17:35 Urine Turbidity Clear (Clear) 10/18/16 17:35 Urine pH 6.0 (5.0-7.0) 10/18/16 17:35 Ur Specific [place] 1.029 (1.003-1.030) 10/18/16 17:35 Urine Protein 100 mg/dl mg/dL (Negative) 10/18/16 17:35 Urine Glucose (UA) >=500 mg/dL (Negative) 10/18/16 17:35 Urine Ketones 20 mg/dL (Negative) 10/18/16 17:35 Urine Blood Sm (Negative) 10/18/16 17:35 Urine Nitrite Neg (Negative) 10/18/16 17:35 Urine Bilirubin Neg (Negative) 10/18/16 17:35 Urine Urobilinogen < 2.0 mg/dL (<2.0) 06/01/17 17:35 Ur Leukocyte Esterase Neg (Negative) 10/18/16 17:35 Urine WBC (Auto) 1.0 /HPF (0.0-6.0) 10/18/16 17:35 Urine RBC (Auto) 7.0 /HPF (0.0-6.0) 10/18/16 17:35 - Imaging and Cardiology Chest x-ray: image reviewed (no infiltrate) Imaging and Cardiology: Foot xray, left image reviewed extensive left foot edema
[2016-10-19 07:47] LABS: Basophils % (Auto) 0.4 % (0.0-1.8); Eosinophils % (Auto) 2.4 % (0.0-4.3)
[2016-10-19 07:48] LABS: Diff Status Complete
[2016-10-19 07:54] LABS: Alanine Aminotransferase 33 units/L (7-56); Albumin 2.6 g/dL (3.9-5); Albumin/Globulin Ratio 0.6 %; Alkaline Phosphatase 176 units/L (35-129); Anion Gap 15 mmol/L; Blood Urea Nitrogen 8 mg/dL (9-20); Calcium 8.8 mg/dL (8.4-10.2); Carbon Dioxide 28 mmol/L (22-30); Chloride 101.6 mmol/L (98-107); Glucose 95 mg/dL (75-100); Sodium 141 mmol/L (137-145); Total Protein 7.2 g/dL (6.3-8.2)
[2016-10-19] MEDS ORDERED: LOVENOX SUB-Q SCH (10:00)
--- NOTE | 2016-10-19 10:02 | Consultation ---
History of Present Illness - Reason for Consult Consult date: 10/19/16 left foot cellulitis - History of Present Illness Mr. Goncalves is a 46-year-old man with diabetes mellitus and significant infrapopliteal peripheral vascular disease who underwent a left TMA last month. He returns with swelling and concerns for ongoing infection of the stump. He says his blood sugars have been erratic since discharge, mostly in the 200-300s , but dropping to the 100s after hyperbaric oxygen therapy. He was compliant with oral antibiotics and completed them 3 days ago. He says that he developed an acute worsening of pain in his left stump yesterday and was brought to the ED for assessment. The distal aspect is necrotic with surrounding ischemic/ erythematous changes and he says this has been present "ever since the surgery" . He denies fever, chills or other systemtic complaints. A plain film xray showed swelling with no bony abnormalities. He was not able to follow-up in my office due to transportation issues. ID consultation is requested for further antibiotic management. Past History Past Medical History: diabetes, PVD Past Surgical History: Other (left TMA) Medications and Allergies Allergies Allergy/AdvReac Type Severity Reaction Status Date / Time No Known Allergies Allergy Verified 10/18/16 13:37 Home Medications Medication Instructions Recorded Confirmed Last Taken Type Lisinopril [Zestril TAB] 20 mg PO QDAY #30 tablet 09/28/16 10/18/16 Unknown Rx Warfarin [Coumadin] 5 mg PO DAILY@1700 #30 tablet 09/28/16 10/18/16 Unknown Rx oxyCODONE /ACETAMINOPHEN [Percocet 1 tab PO Q6H PRN #30 tablet 09/28/16 Unknown Rx 5/325 mg] Clopidogrel [Plavix] 75 mg PO QDAY #30 tablet 09/29/16 10/18/16 Unknown Rx Gabapentin [Neurontin] 600 mg PO TID 10/18/16 10/18/16 Unknown History Insulin Lispro [Humalog Kwikpen 30 units SC BID 10/18/16 10/18/16 Unknown History 200 UNITS/ML] Active Meds: Active Medications Acetaminophen (Tylenol) 650 mg PO Q4H PRN PRN Reason: Pain MILD(1-3)/Fever >100.5/FARMER Bisacodyl (Dulcolax) 10 mg SC QDAY PRN PRN Reason: Constipation unrelieved by [facility] Clopidogrel Bisulfate (Plavix) 75 mg PO QDAY [facility] Gabapentin (Neurontin) 600 mg PO TID [facility] Heparin Sodium (Porcine) (Heparin) 5,000 unit SUB-Q Q12HR [facility] Hydromorphone HCl (Dilaudid) 1 mg IV Q3H PRN PRN Reason: Pain , Severe (7-10) Last Admin: 10/19/16 06:39 Dose: 1 mg Sodium Chloride (Nacl 0.9% 1000 Ml) 1,000 mls @ 75 mls/hr IV DIRECT [facility] Piperacillin Sod/Tazobactam Sod (Zosyn/Ns 4.5gm/100ml) 4.5 gm in 100 mls @ 200 mls/hr IV Q8H [facility] PRN Reason: Protocol Last Admin: 10/19/16 01:00 Dose: 200 mls/hr Vancomycin HCl (Vancomycin/Ns 1 Gm/250 Ml) 1 gm in 250 mls @ 125 mls/hr IV Q12H [facility] Last Admin: 10/19/16 03:55 Dose: 125 mls/hr Insulin Aspart (Novolog) 30 units SUB-Q BIDDIAB [facility] Insulin Aspart (Novolog) 0 units SUB-Q AC [facility] PRN Reason: Protocol Lisinopril (Zestril) 20 mg PO QDAY [facility] Last Admin: 10/19/16 00:24 Dose: 20 mg Magnesium Hydroxide (Milk Of Magnesia) 30 ml PO Q4H PRN PRN Reason: Constipation Ondansetron HCl (Zofran) 4 mg IV Q8H PRN PRN Reason: N/V unrelieved by [facility] Oxycodone/Acetaminophen (Percocet 5/325) 1 tab PO Q6H PRN PRN Reason: Moder Pain unrelieved by [place] Last Admin: 10/19/16 00:25 Dose: 1 tab Vancomycin HCl (Vancomycin Pharmacy To Dose) 1 each IV PKCONSULT [facility] PRN Reason: Protocol Warfarin Sodium (Coumadin) 5 mg PO DAILY@1700 [facility] PRN Reason: Protocol Warfarin Sodium (Coumadin Pharmacy To Dose) 1 each PO PKCONSULT [facility] PRN Reason: Protocol Zolpidem Tartrate (Ambien) 5 mg PO QHS PRN PRN Reason: Insomnia Last Admin: 10/19/16 00:25 Dose: 5 mg Review of Systems All systems: negative Constitutional: no fever, no chills, no sweats, no poor appetite Cardiovascular: no shortness of breath Respiratory: no cough Gastrointestinal: no nausea, no vomiting, no diarrhea Genitourinary Male: no dysuria Musculoskeletal: prior amputations, other (severe left foot stump pain) Integumentary: no rash, no pruritis Physical Examination - Constitutional Vitals: Vital Signs Temp Pulse Resp BP Pulse Ox 98.4 F 111 H 20 136/82 100 10/19/16 09:00 10/19/16 09:00 10/19/16 09:00 10/19/16 09:00 10/19/16 09:00 Temperature -Last 24 Hours Temperature 98.4 F Temperature 98 F General appearance: Present: no acute distress - EENT ENT: edentulous - Respiratory Respiratory: bilateral: CTA - Cardiovascular Rhythm: regular Heart Sounds: Present: S1 & S2 - Extremities Extremity abnormal: other (left foot stump with necrosis/ thin eschar at the distal aspect around previous incision; remaining portion of foot is edematous, mildly erythematous with mild sloughing, diffuse tenderness to light foot, no crepitus or fluctuance; superficial skin ulceration along left staley) - Abdominal General gastrointestinal: Present: soft, non-tender, non-distended - Integumentary Integumentary: Absent: rash - Psychiatric Psychiatric: appropriate mood/affect - Neurologic Neurologic: no focal deficits Results - Labs CBC & Chem 7: 10/19/16 07:12 10/19/16 07:12 Labs: Abnormal lab results 10/18/16 10/18/16 10/19/16 Range/Units 22:26 22:56 07:12 WBC 16.4 H (4.5-11.0) K/mm3 RBC 3.56 L (3.65-5.03) M/mm3 Hgb 9.3 L (11.8-15.2) gm/dl Hct 29.6 L (35.5-45.6) % MCV 83 L (84-94) fl MCH 26 L (28-32) pg MCHC 31 L (32-34) % RDW 30.1 H (13.2-15.2) % Lymph % (Auto) 7.0 L (13.4-35.0) % Lymph # 1.1 L (1.2-5.4) K/mm3 [place] # 1.2 H (0.0-0.8) K/mm3 Seg Neutrophils % 82.9 H (40.0-70.0) % Seg Neutrophils # 13.3 H (1.8-7.7) K/mm3 BUN (9-20) mg/dL Creatinine (0.8-1.5) mg/dL POC Glucose 303 H 336 H (70-105) Alkaline Phosphatase (35-129) units/L Albumin (3.9-5) g/dL 10/19/16 Range/Units 07:12 WBC (4.5-11.0) K/mm3 RBC (3.65-5.03) M/mm3 Hgb (11.8-15.2) gm/dl Hct (35.5-45.6) % MCV (84-94) fl MCH (28-32) pg MCHC (32-34) % RDW (13.2-15.2) % Lymph % (Auto) (13.4-35.0) % Lymph # (1.2-5.4) K/mm3 [place] # (0.0-0.8) K/mm3 Seg Neutrophils % (40.0-70.0) % Seg Neutrophils # (1.8-7.7) K/mm3 BUN 8 L (9-20) mg/dL Creatinine 0.5 L (0.8-1.5) mg/dL POC Glucose (70-105) Alkaline Phosphatase 176 H (35-129) units/L Albumin 2.6 L (3.9-5) g/dL Microbiology 10/18/16 Unknown Peripheral/Venous Blood Culture - Preliminary Culture in Progress 10/18/16 Unknown Peripheral/Venous Blood Culture - Preliminary Culture in Progress - Imaging and Cardiology Chest x-ray: report reviewed (normal) Assessment and Plan - Patient Problems (1) Cellulitis Current Visit: Yes Status: Acute Qualifiers: Site of cellulitis: extremity Site of cellulitis of extremity: lower extremity Site of cellulitis of trunk: S Laterality: left Qualified Code(s ): L03.116 - Cellulitis of left lower limb Plan to address problem: 1. Okay to continue broad, empiric antibiotics for now given necrotic aspect of cellulitis. 2. Anticipate high-level amputation or revascularization as etiology of foot changes is more vascular than infectious. (2) Peripheral vascular disease Current Visit: Yes Status: Acute Plan to address problem: Per above. Recommend vascular evaluation.
[2016-10-19] MEDS: NEURONTIN PO SCH ×3 (10:36→21:39)
[2016-10-19] MEDS: HEPARIN SUB-Q SCH ×2 (10:36→21:38)
[2016-10-19] MEDS: PLAVIX PO SCH (10:36)
[2016-10-19] MEDS: NOVOLOG SUB-Q SCH ×5 (10:37→18:17)
--- NOTE | 2016-10-19 10:49 | Consultation ---
History of Present Illness - HPI Consult date: 10/19/16 Consult reason: joint pain History of present illness: 46-year-old male who recently underwent a transverse metatarsal amputation of the left foot on 09/26/2016, patient states the leg became increasingly painful therefore he presented to the emergency room for further care. Past History Past Medical History: diabetes, PVD Past Surgical History: Other (left TMA) Medications and Allergies Allergies Allergy/AdvReac Type Severity Reaction Status Date / Time No Known Allergies Allergy Verified 10/18/16 13:37 Home Medications Medication Instructions Recorded Confirmed Last Taken Type Lisinopril [Zestril TAB] 20 mg PO QDAY #30 tablet 09/28/16 10/18/16 Unknown Rx Warfarin [Coumadin] 5 mg PO DAILY@1700 #30 tablet 09/28/16 10/18/16 Unknown Rx oxyCODONE /ACETAMINOPHEN [Percocet 1 tab PO Q6H PRN #30 tablet 09/28/16 Unknown Rx 5/325 mg] Clopidogrel [Plavix] 75 mg PO QDAY #30 tablet 09/29/16 10/18/16 Unknown Rx Gabapentin [Neurontin] 600 mg PO TID 10/18/16 10/18/16 Unknown History Insulin Lispro [Humalog Kwikpen 30 units SC BID 10/18/16 10/18/16 Unknown History 200 UNITS/ML] Active Meds: Active Medications Acetaminophen (Tylenol) 650 mg PO Q4H PRN PRN Reason: Pain MILD(1-3)/Fever >100.5/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 Bisacodyl (Dulcolax) 10 mg [place] QDAY PRN PRN Reason: Constipation unrelieved by MOM Clopidogrel Bisulfate (Plavix) 75 mg PO QDAY [facility] Last Admin: 10/19/16 10:36 Dose: 75 mg Gabapentin (Neurontin) 600 mg PO TID [facility] Last Admin: 10/19/16 10:36 Dose: 600 mg Heparin Sodium (Porcine) (Heparin) 5,000 unit SUB-Q Q12HR [facility] Last Admin: 10/19/16 10:36 Dose: 5,000 unit Hydromorphone HCl (Dilaudid) 1 mg IV Q3H PRN PRN Reason: Pain , Severe (7-10) Last Admin: 10/19/16 06:39 Dose: 1 mg Sodium Chloride (Nacl 0.9% 1000 Ml) 1,000 mls @ 75 mls/hr IV DIRECT [facility] Piperacillin Sod/Tazobactam Sod (Zosyn/Ns 4.5gm/100ml) 4.5 gm in 100 mls @ 200 mls/hr IV Q8H [facility] PRN Reason: Protocol Last Admin: 10/19/16 10:37 Dose: 200 mls/hr Vancomycin HCl (Vancomycin/Ns 1 Gm/250 Ml) 1 gm in 250 mls @ 125 mls/hr IV Q12H [facility] Last Admin: 10/19/16 03:55 Dose: 125 mls/hr Insulin Aspart (Novolog) 30 units SUB-Q BIDDIAB [facility] Last Admin: 10/19/16 10:37 Dose: Not Given Insulin Aspart (Novolog) 0 units SUB-Q AC [facility] PRN Reason: Protocol Lisinopril (Zestril) 20 mg PO QDAY [facility] Last Admin: 10/19/16 00:24 Dose: 20 mg Magnesium Hydroxide (Milk Of Magnesia) 30 ml PO Q4H PRN PRN Reason: Constipation Ondansetron HCl (Zofran) 4 mg IV Q8H PRN PRN Reason: N/V unrelieved by [facility] Oxycodone/Acetaminophen (Percocet 5/325) 1 tab PO Q6H PRN PRN Reason: Moder Pain unrelieved by [place] Last Admin: 10/19/16 00:25 Dose: 1 tab Vancomycin HCl (Vancomycin Pharmacy To Dose) 1 each IV PKCONSULT [facility] PRN Reason: Protocol Warfarin Sodium (Coumadin) 5 mg PO DAILY@1700 [facility] PRN Reason: Protocol Warfarin Sodium (Coumadin Pharmacy To Dose) 1 each PO PKCONSULT [facility] PRN Reason: Protocol Zolpidem Tartrate (Ambien) 5 mg PO QHS PRN PRN Reason: Insomnia Last Admin: 10/19/16 00:25 Dose: 5 mg Physical Examination - Physical exam Narrative exam: Physical examination the left lower extremity is examined revealed the patient to have had a transmetatarsal amputation with dry dark eschar to the dorsum of the stump along with some redness and erythema noted to the hindfoot and distal leg there is no fluctuance noted or pus expressed with palpation Assessment and Plan There is most transmetatarsal amputation with dry gangrene of the dorsal skin flap is cellulitis of the left leg Recommendations- continue IV antibiotics and observation
[2016-10-19] MEDS ORDERED: COUMADIN PO SCH (17:00)
--- NOTE | 2016-10-19 17:36 | Consultation ---
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 Afterwards, he had a left TMA performed on 09/26/2016. He had some darkness of his TMA site which has progressively turned into an dry eschar over the dorsal aspect of the TMA incision. The prolene sutures are still intact and the wound is not open. No evidence of what gangrene. The patient presented to the hospital due to increasing pain at his left TMA site. Upon physical examination, the patient has a palpable left dorsalis pedis pulse. His noninvasive studies demonstrate an adequate [place], and good velocities in his left lower extremity. Past History Past Medical History: diabetes, PVD Past Surgical History: Other (left TMA) Medications and Allergies Allergies Allergy/AdvReac Type Severity Reaction Status Date / Time No Known Allergies Allergy Verified 10/18/16 13:37 Home Medications Medication Instructions Recorded Confirmed Last Taken Type Lisinopril [Zestril TAB] 20 mg PO QDAY #30 tablet 09/28/16 10/18/16 Unknown Rx Warfarin [Coumadin] 5 mg PO DAILY@1700 #30 tablet 09/28/16 10/18/16 Unknown Rx oxyCODONE /ACETAMINOPHEN [Percocet 1 tab PO Q6H PRN #30 tablet 09/28/16 Unknown Rx 5/325 mg] Clopidogrel [Plavix] 75 mg PO QDAY #30 tablet 09/29/16 10/18/16 Unknown Rx Gabapentin [Neurontin] 600 mg PO TID 10/18/16 10/18/16 Unknown History Insulin Lispro [Humalog Kwikpen 30 units SC BID 10/18/16 10/18/16 Unknown History 200 UNITS/ML] Active Meds: Active Medications Acetaminophen (Tylenol) 650 mg PO Q4H PRN PRN Reason: Pain MILD(1-3)/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 >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.5/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 Bisacodyl (Dulcolax) 10 mg [place] QDAY PRN PRN Reason: Constipation unrelieved by MOM Clopidogrel Bisulfate (Plavix) 75 mg PO QDAY [facility] Last Admin: 10/19/16 10:36 Dose: 75 mg Gabapentin (Neurontin) 600 mg PO TID [facility] Last Admin: 10/19/16 15:31 Dose: 600 mg Heparin Sodium (Porcine) (Heparin) 5,000 unit SUB-Q Q12HR [facility] Last Admin: 10/19/16 10:36 Dose: 5,000 unit Hydromorphone HCl (Dilaudid) 2 mg IV Q3H PRN PRN Reason: Pain , Severe (7-10) Last Admin: 10/19/16 15:31 Dose: 2 mg Sodium Chloride (Nacl 0.9% 1000 Ml) 1,000 mls @ 75 mls/hr IV DIRECT [facility] Piperacillin Sod/Tazobactam Sod (Zosyn/Ns 4.5gm/100ml) 4.5 gm in 100 mls @ 200 mls/hr IV Q8H [facility] PRN Reason: Protocol Last Admin: 10/19/16 10:37 Dose: 200 mls/hr Vancomycin HCl (Vancomycin/Ns 1 Gm/250 Ml) 1 gm in 250 mls @ 125 mls/hr IV Q12H [facility] Last Admin: 10/19/16 03:55 Dose: 125 mls/hr Insulin Aspart (Novolog) 30 units SUB-Q BIDDIAB [facility] Last Admin: 10/19/16 10:37 Dose: Not Given Insulin Aspart (Novolog) 0 units SUB-Q AC [facility] PRN Reason: Protocol Last Admin: 10/19/16 15:30 Dose: 8 units Lisinopril (Zestril) 20 mg PO QDAY [facility] Last Admin: 10/19/16 10:45 Dose: 20 mg Magnesium Hydroxide (Milk Of Magnesia) 30 ml PO Q4H PRN PRN Reason: Constipation Ondansetron HCl (Zofran) 4 mg IV Q8H PRN PRN Reason: N/V unrelieved by [facility] Oxycodone/Acetaminophen (Percocet 5/325) 2 tab PO Q6H PRN PRN Reason: Moder Pain unrelieved by [place] Vancomycin HCl (Vancomycin Pharmacy To Dose) 1 each IV PKCONSULT [facility] PRN Reason: Protocol Warfarin Sodium (Coumadin Pharmacy To Dose) 1 each PO PKCONSULT [facility] PRN Reason: Protocol Warfarin Sodium (Coumadin) 7.5 mg PO DAILY@1700 [facility] Zolpidem Tartrate (Ambien) 5 mg PO QHS PRN PRN Reason: Insomnia Last Admin: 10/19/16 00:25 Dose: 5 mg Review of Systems All systems: negative (see HPI) Exam - Constitutional Vitals: Temp Pulse Resp BP Pulse Ox 98.4 F 111 H 20 136/82 100 10/19/16 09:00 10/19/16 09:00 10/19/16 09:00 10/19/16 09:00 10/19/16 09:00 General appearance: Present: no acute distress - EENT Eyes: Present: EOM intact ENT: hearing intact - Respiratory Respiratory effort: normal - Extremities Extremities: abnormal (see history of present illness) - Psychiatric Psychiatric: appropriate mood/affect, cooperative Results - Labs CBC & Chem 7: 10/19/16 07:12 10/19/16 07:12 Labs: Abnormal lab results 10/18/16 10/18/16 10/19/16 Range/Units 22:26 22:56 07:12 WBC 16.4 H (4.5-11.0) K/mm3 RBC 3.56 L (3.65-5.03) M/mm3 Hgb 9.3 L (11.8-15.2) gm/dl Hct 29.6 L (35.5-45.6) % MCV 83 L (84-94) fl MCH 26 L (28-32) pg MCHC 31 L (32-34) % RDW 30.1 H (13.2-15.2) % Lymph % (Auto) 7.0 L (13.4-35.0) % Lymph # 1.1 L (1.2-5.4) K/mm3 [place] # 1.2 H (0.0-0.8) K/mm3 Seg Neutrophils % 82.9 H (40.0-70.0) % Seg Neutrophils # 13.3 H (1.8-7.7) K/mm3 BUN (9-20) mg/dL Creatinine (0.8-1.5) mg/dL POC Glucose 303 H 336 H (70-105) Alkaline Phosphatase (35-129) units/L Albumin (3.9-5) g/dL 10/19/16 10/19/16 Range/Units 07:12 12:06 WBC (4.5-11.0) K/mm3 RBC (3.65-5.03) M/mm3 Hgb (11.8-15.2) gm/dl Hct (35.5-45.6) % MCV (84-94) fl MCH (28-32) pg MCHC (32-34) % RDW (13.2-15.2) % Lymph % (Auto) (13.4-35.0) % Lymph # (1.2-5.4) K/mm3 [place] # (0.0-0.8) K/mm3 Seg Neutrophils % (40.0-70.0) % Seg Neutrophils # (1.8-7.7) K/mm3 BUN 8 L (9-20) mg/dL Creatinine 0.5 L (0.8-1.5) mg/dL POC Glucose 361 H (70-105) Alkaline Phosphatase 176 H (35-129) units/L Albumin 2.6 L (3.9-5) g/dL - Imaging and Cardiology Venous US: report reviewed, image reviewed (arterial) Assessment and Plan 46-year-old male with type 1 diabetes and multiple medical problems with 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 The patient subsequently underwent a TMA of the left foot. No evidence of wet gangrene on physical examination. The patient has leukocytosis. He has warmth of his left foot which could be due to reperfusion edema/changes which were present after revascularization, or could be due to some cellulitis. In order to provide the patient the best chance of limb salvage, would hope to delay any surgical procedures such as debridement. Hopefully, patient's foot will improve with antibiotics and subsequently can continue hyperbaric oxygen with antibiotics which will provide the best chance for healing underneath the eschar and limb salvage. This will allow for delayed debridement by podiatry until hyperbaric oxygen completed. If the patient's foot does not improve with antibiotics, then he may require earlier debridement, and if this is unsuccessful, below-knee amputation. Continue plavix and coumadin.
[2016-10-19] MEDS: COUMADIN PO SCH (18:00)
[2016-10-19] MEDS: PERCOCET 5/325 PO PRN (21:39)
[2016-10-20] MEDS: ZOSYN/NS 4.5GM/100ML 4.5 GM/100 ML VIAL IV SCH ×2 (02:37→08:25)
[2016-10-20] MEDS: DILAUDID IV PRN ×3 (04:53→20:52)
[2016-10-20] MEDS: VANCOMYCIN/NS 1 GM/250 ML 1 GM/250 ML BAG IV SCH (04:59)
[2016-10-20] MEDS: NOVOLOG SUB-Q SCH ×5 (08:25→17:57)
[2016-10-20] MEDS: NEURONTIN PO SCH ×3 (08:25→20:50)
[2016-10-20 08:30] LABS: INR 1.41 (0.87-1.13)
--- NOTE | 2016-10-20 09:35 | Progress Note ---
Assessment and Plan Assessment and plan: 46-year-old male with extensive history of peripheral arterial disease, that status post a left TMA on 09/27/16, history of PE, diabetes, anemia of chronic disease, 1. sepsis due to Left foot cellulitis continue IV abx ID input appreciated, orthopedic surgery input appreciated Vascular surgery consult appreciated Vascular surgery consult appreciated, they do not believe that there is any evidence of wet gangrene. There are impression is that the patient most likely has reperfusion edema/changes and cellulitis. The plan will be to continue patient on antibiotics and hyperbaric oxygen. Which will provide the best chance of healing underneath the eschar and limb salvage which will also allow for delayed debridement by podiatry. However if the patient does not improve he may require earlier debridements and if unsuccessful, will need BKA Continue Plavix and Coumadin 2. DM with hyperglycemia -continue insulins 3. hx of PE continue warfarin 4. Anemia of Chronic disease stable, monitor hg 5. HTN continue lisinopril History Interval history: She Seems to Complain of Left Foot Pain and Swelling, Pain Is 8 Out Of 10, Dull , New Relieving Factors, No Exacerbating Factors, Denies Fevers and Denies Chills Hospitalist Physical - Physical exam Narrative exam: General: Patient appears well in no distress HEENT: MMM, EOMI cardiac: S1-S2 heard lungs: clear to auscultation, abdomen: soft, nontender, nondistended bowel sounds positive extremities: Left foot swelling, recent TMA with stitches still in place Significant edema, erythema and tenderness, no fluctuance Skin: Erythema of left foot Neuro: no focal deficit Psych: appropriate behavior and mood, cognition intact - Constitutional Vitals: Temp Pulse Resp BP Pulse Ox 99.1 F 109 H 18 142/86 100 10/19/16 23:00 10/19/16 23:00 10/20/16 04:53 10/19/16 23:00 10/19/16 23:00 General appearance: Present: no acute distress Results - Labs CBC & Chem 7: 10/19/16 07:12 10/19/16 07:12 Labs: Laboratory Last Values WBC 16.4 K/mm3 (4.5-11.0) H 10/19/16 07:12 RBC 3.56 M/mm3 (3.65-5.03) L 10/19/16 07:12 Hgb 9.3 gm/dl (11.8-15.2) L 10/19/16 07:12 Hct 29.6 % (35.5-45.6) L 10/19/16 07:12 MCV 83 fl (84-94) L 10/19/16 07:12 MCH 26 pg (28-32) L 10/19/16 07:12 MCHC 31 % (32-34) L 10/19/16 07:12 RDW 30.1 % (13.2-15.2) H 10/19/16 07:12 Plt Count 365 K/mm3 (140-440) 10/19/16 07:12 Lymph % (Auto) 7.0 % (13.4-35.0) L 10/19/16 07:12 [place] % (Auto) 7.3 % (0.0-7.3) 10/19/16 07:12 Eos % (Auto) 2.4 % (0.0-4.3) 10/19/16 07:12 Baso % (Auto) 0.4 % (0.0-1.8) 10/19/16 07:12 Lymph # 1.1 K/mm3 (1.2-5.4) L 10/19/16 07:12 [place] # 1.2 K/mm3 (0.0-0.8) H 10/19/16 07:12 Eos # 0.4 K/mm3 (0.0-0.4) 10/19/16 07:12 Baso # 0.1 K/mm3 (0.0-0.1) 10/19/16 07:12 Add Manual Diff Complete 10/19/16 07:12 Total Counted 100 10/18/16 13:47 Seg Neutrophils % 82.9 % (40.0-70.0) H 10/19/16 07:12 Seg Neuts % (Manual) 87.0 % (40.0-70.0) H 10/18/16 13:47 Band Neutrophils % 4.0 % 10/18/16 13:47 Lymphocytes % (Manual) 6.0 % (13.4-35.0) L 10/18/16 13:47 Reactive Lymphs % (Man) 0 % 10/18/16 13:47 Monocytes % (Manual) 3.0 % (0.0-7.3) 10/18/16 13:47 Eosinophils % (Manual) 0 % (0.0-4.3) 10/18/16 13:47 Basophils % (Manual) 0 % (0.0-1.8) 10/18/16 13:47 Metamyelocytes % 0 % 10/18/16 13:47 Myelocytes % 0 % 10/18/16 13:47 Promyelocytes % 0 % 10/18/16 13:47 Blast Cells % 0 % 10/18/16 13:47 Nucleated RBC % Not Reportable 10/18/16 13:47 Seg Neutrophils # 13.3 K/mm3 (1.8-7.7) H 10/19/16 07:12 Seg Neutrophils # Man 19.7 K/mm3 (1.8-7.7) H 10/18/16 13:47 Band Neutrophils # 0.9 K/mm3 10/18/16 13:47 Lymphocytes # (Manual) 1.4 K/mm3 (1.2-5.4) 10/18/16 13:47 Abs React Lymphs (Man) 0.0 K/mm3 10/18/16 13:47 Monocytes # (Manual) 0.7 K/mm3 (0.0-0.8) 10/18/16 13:47 Eosinophils # (Manual) 0.0 K/mm3 (0.0-0.4) 10/18/16 13:47 Basophils # (Manual) 0.0 K/mm3 (0.0-0.1) 10/18/16 13:47 Metamyelocytes # 0.0 K/mm3 10/18/16 13:47 Myelocytes # 0.0 K/mm3 10/18/16 13:47 Promyelocytes # 0.0 K/mm3 10/18/16 13:47 Blast Cells # 0.0 K/mm3 10/18/16 13:47 WBC Morphology Not Reportable 10/18/16 13:47 Hypersegmented Neuts Not Reportable 10/18/16 13:47 Hyposegmented Neuts Not Reportable 10/18/16 13:47 Hypogranular Neuts Not Reportable 10/18/16 13:47 Smudge Cells Not Reportable 10/18/16 13:47 Toxic Granulation Not Reportable 10/18/16 13:47 Toxic Vacuolation Not Reportable 10/18/16 13:47 Dohle Bodies Not Reportable 10/18/16 13:47 Pelger-Huet Anomaly Not Reportable 10/18/16 13:47 Ezra Rods Not Reportable 10/18/16 13:47 Platelet Estimate Not Reportable 10/18/16 13:47 Clumped Platelets Not Reportable 10/18/16 13:47 Plt Clumps, EDTA Not Reportable 10/18/16 13:47 Large Platelets Not Reportable 10/18/16 13:47 Giant Platelets Not Reportable 10/18/16 13:47 Platelet Satelliting Not Reportable 10/18/16 13:47 Plt Morphology Comment Not Reportable 10/18/16 13:47 RBC Morphology Not Reportable 10/18/16 13:47 Dimorphic RBCs Yes 10/18/16 13:47 Polychromasia Not Reportable 10/18/16 13:47 Hypochromasia 1+ 10/18/16 13:47 Poikilocytosis Not Reportable 10/18/16 13:47 Anisocytosis 3+ 10/18/16 13:47 Microcytosis Not Reportable 10/18/16 13:47 Macrocytosis Not Reportable 10/18/16 13:47 Spherocytes Not Reportable 10/18/16 13:47 Pappenheimer Bodies Not Reportable 10/18/16 13:47 Sickle Cells Not Reportable 10/18/16 13:47 Target Cells Not Reportable 10/18/16 13:47 Tear Drop Cells Not Reportable 10/18/16 13:47 Ovalocytes Not Reportable 10/18/16 13:47 Helmet Cells Not Reportable 10/18/16 13:47 [place] Bodies Not Reportable 10/18/16 13:47 [place] Rings Not Reportable 10/18/16 13:47 Yaya Cells Not Reportable 10/18/16 13:47 Bite Cells Not Reportable 10/18/16 13:47 Crenated Cell Not Reportable 10/18/16 13:47 Elliptocytes Not Reportable 10/18/16 13:47 Acanthocytes (Spur) Not Reportable 10/18/16 13:47 Rouleaux Not Reportable 10/18/16 13:47 Hemoglobin C Crystals Not Reportable 10/18/16 13:47 Schistocytes Not Reportable 10/18/16 13:47 Malaria parasites Not Reportable 10/18/16 13:47 Yosef Bodies Not Reportable 10/18/16 13:47 Hem Pathologist Commnt No 10/18/16 13:47 PT 17.2 Sec. (12.2-14.9) H 10/20/16 07:02 INR 1.41 (0.87-1.13) H 10/20/16 07:02 VBG pH 7.351 (7.320-7.420) 10/18/16 13:47 Sodium 141 mmol/L (137-145) D 10/19/16 07:12 Potassium 4.0 mmol/L (3.6-5.0) 10/19/16 07:12 Chloride 101.6 mmol/L (98-107) 10/19/16 07:12 Carbon Dioxide 28 mmol/L (22-30) 10/19/16 07:12 Anion Gap 15 mmol/L 10/19/16 07:12 BUN 8 mg/dL (9-20) L 10/19/16 07:12 Creatinine 0.5 mg/dL (0.8-1.5) L 10/19/16 07:12 Estimated GFR > 60 ml/min 10/19/16 07:12 BUN/Creatinine Ratio 16.00 % 10/19/16 07:12 Glucose 95 mg/dL (75-100) 10/19/16 07:12 POC Glucose 300 (70-105) H 10/20/16 06:11 Lactic Acid 1.30 mmol/L (0.7-2.0) 10/18/16 18:08 Calcium 8.8 mg/dL (8.4-10.2) 10/19/16 07:12 Total Bilirubin 0.20 mg/dL (0.1-1.2) 10/19/16 07:12 AST 24 units/L (5-40) 10/19/16 07:12 ALT 33 units/L (7-56) 10/19/16 07:12 Alkaline Phosphatase 176 units/L (35-129) H 10/19/16 07:12 Total Protein 7.2 g/dL (6.3-8.2) 10/19/16 07:12 Albumin 2.6 g/dL (3.9-5) L 10/19/16 07:12 Albumin/Globulin Ratio 0.6 % 10/19/16 07:12 Urine Color Yellow (Yellow) 10/18/16 17:35 Urine Turbidity Clear (Clear) 10/18/16 17:35 Urine pH 6.0 (5.0-7.0) 10/18/16 17:35 Ur Specific [place] 1.029 (1.003-1.030) 10/18/16 17:35 Urine Protein 100 mg/dl mg/dL (Negative) 10/18/16 17:35 Urine Glucose (UA) >=500 mg/dL (Negative) 10/18/16 17:35 Urine Ketones 20 mg/dL (Negative) 10/18/16 17:35 Urine Blood Sm (Negative) 10/18/16 17:35 Urine Nitrite Neg (Negative) 10/18/16 17:35 Urine Bilirubin Neg (Negative) 10/18/16 17:35 Urine Urobilinogen < 2.0 mg/dL (<2.0) 10/18/16 17:35 Ur Leukocyte Esterase Neg (Negative) 10/18/16 17:35 Urine WBC (Auto) 1.0 /HPF (0.0-6.0) 10/18/16 17:35 Urine RBC (Auto) 7.0 /HPF (0.0-6.0) 10/18/16 17:35
[2016-10-20] MEDS: ZESTRIL PO SCH (11:45)
[2016-10-20] MEDS: PLAVIX PO SCH (11:45)
[2016-10-20] MEDS: HEPARIN SUB-Q SCH ×2 (11:46→21:00)
--- NOTE | 2016-10-20 15:31 | Progress Note ---
Assessment and Plan - Patient Problems (1) Cellulitis Current Visit: Yes Status: Acute Qualifiers: Site of cellulitis: extremity Site of cellulitis of extremity: lower extremity Site of cellulitis of trunk: S Laterality: left Qualified Code(s ): L03.116 - Cellulitis of left lower limb Plan to address problem: 1. Recommendations of vascular surgeon were reviewed. Hopeful salvage of limb with a course of antibiotics, delaying an surgeries or debridement for now. 2. A reasonable empiric, oral option is Levaquin/ Clindamycin for 14-21 days , pending outpatient wound care follow-up for hyperbarics, etc. 3. Will change to this regimen to continue as outpatient. 4. Monitor closely potential interactions of antibiotics with Coumadin. (2) Peripheral vascular disease Current Visit: Yes Status: Acute Plan to address problem: 1. Follow-up results of THEODORE and other vascular studies. Subjective Date of service: 10/20/16 Interval history: Remains afebrile. Repeating THEODORE studies this admission. Continues on empiric Vancomycin and Zosyn. Objective - Exam Narrative Exam: sleeping soundly - Constitutional Vitals: Vital Signs Temp Pulse Resp BP Pulse Ox 99.1 F 100 H 16 120/80 98 10/20/16 07:05 10/20/16 11:45 10/20/16 07:05 10/20/16 11:45 10/20/16 07:05 Temperature -Last 24 Hours Temperature 99.1 F Temperature 99.1 F General appearance: Absent: no acute distress - Respiratory Respiratory: bilateral: CTA - Cardiovascular Rhythm: regular Extremities: abnormal (superficial necrosis of left distal foot with mild erythema along dorsum) - Integumentary Integumentary: no rash - Labs CBC & Chem 7: 10/19/16 07:12 10/19/16 07:12 Labs: Abnormal lab results 10/19/16 10/20/16 10/20/16 Range/Units 21:38 06:11 07:02 PT 17.2 H (12.2-14.9) Sec. INR 1.41 H (0.87-1.13) POC Glucose 156 H 300 H (70-105) 10/20/16 Range/Units 11:44 PT (12.2-14.9) Sec. 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 Bisacodyl (Dulcolax) 10 mg DE QDAY PRN PRN Reason: Constipation unrelieved by MOM Clopidogrel Bisulfate (Plavix) 75 mg PO QDAY [facility] Last Admin: 10/20/16 11:45 Dose: 75 mg Gabapentin (Neurontin) 600 mg PO TID [facility] Last Admin: 10/20/16 13:30 Dose: 600 mg Heparin Sodium (Porcine) (Heparin) 5,000 unit SUB-Q Q12HR [facility] Last Admin: 10/20/16 11:46 Dose: 5,000 unit Hydromorphone HCl (Dilaudid) 2 mg IV Q3H PRN PRN Reason: Pain , Severe (7-10) Last Admin: 10/20/16 13:30 Dose: 2 mg Sodium Chloride (Nacl 0.9% 1000 Ml) 1,000 mls @ 75 mls/hr IV DIRECT SERGEY Piperacillin Sod/Tazobactam Sod (Zosyn/Ns 4.5gm/100ml) 4.5 gm in 100 mls @ 200 mls/hr IV Q8H [facility] PRN Reason: Protocol Last Admin: 10/20/16 08:25 Dose: 200 mls/hr Vancomycin HCl (Vancomycin/Ns 1 Gm/250 Ml) 1 gm in 250 mls @ 125 mls/hr IV Q12H [facility] Last Admin: 10/20/16 04:59 Dose: 125 mls/hr Insulin Aspart (Novolog) 30 units SUB-Q BIDDIAB [facility] Last Admin: 10/20/16 08:25 Dose: 30 units Insulin Aspart (Novolog) 0 units SUB-Q AC [facility] PRN Reason: Protocol Last Admin: 10/20/16 13:12 Dose: 6 units Lisinopril (Zestril) 20 mg PO QDAY [facility] Last Admin: 10/20/16 11:45 Dose: 20 mg Magnesium Hydroxide (Milk Of Magnesia) 30 ml PO Q4H PRN PRN Reason: Constipation Ondansetron HCl (Zofran) 4 mg IV Q8H PRN PRN Reason: N/V unrelieved by Reglan Oxycodone/Acetaminophen (Percocet 5/325) 2 tab PO Q6H PRN PRN Reason: Moder Pain unrelieved by [place] Last Admin: 10/19/16 21:39 Dose: 2 tab Vancomycin HCl (Vancomycin Pharmacy To Dose) 1 each IV PKCONSULT [facility] PRN Reason: Protocol Warfarin Sodium (Coumadin Pharmacy To Dose) 1 each PO PKCONSULT [facility] PRN Reason: Protocol Warfarin Sodium (Coumadin) 7.5 mg PO DAILY@1700 SERGEY Last Admin: 10/19/16 18:00 Dose: 7.5 mg Zolpidem Tartrate (Ambien) 5 mg PO QHS PRN PRN Reason: Insomnia Last Admin: 10/19/16 00:25 Dose: 5 mg
[2016-10-20] MEDS: COUMADIN PO SCH (17:57)
[2016-10-20] MEDS: LEVAQUIN PO SCH (17:58)
[2016-10-20] MEDS: CLEOCIN PO SCH (20:52)
[2016-10-21] MEDS: DILAUDID IV PRN ×2 (04:09→18:12)
[2016-10-21 06:44] LABS: INR 1.37 (0.87-1.13)
[2016-10-21] MEDS: NEURONTIN PO SCH ×3 (09:09→20:40)
[2016-10-21] MEDS: CLEOCIN PO SCH ×3 (09:09→20:40)
[2016-10-21] MEDS: NOVOLOG SUB-Q SCH ×6 (09:10→17:43)
--- NOTE | 2016-10-21 10:04 | Progress Note ---
Assessment and Plan Assessment and plan: 46-year-old male with extensive history of peripheral arterial disease, that status post a left TMA on 09/27/16, history of PE, diabetes, anemia of chronic disease, 1. sepsis due to Left foot cellulitis continue IV abx ID input appreciated, orthopedic surgery input appreciated Vascular surgery consult appreciated Vascular surgery consult appreciated, they do not believe that there is any evidence of wet gangrene. There are impression is that the patient most likely has reperfusion edema/changes and cellulitis. The plan will be to continue patient on antibiotics and hyperbaric oxygen. Which will provide the best chance of healing underneath the eschar and limb salvage which will also allow for delayed debridement by podiatry. However if the patient does not improve he may require earlier debridements and if unsuccessful, will need BKA Continue Plavix and Coumadin 2. DM with hyperglycemia -Glucose was elevated, will increase 7030 dose today 3. hx of PE continue warfarin 4. Anemia of Chronic disease stable, monitor hg 5. HTN continue lisinopril 6. Moderate malnutrition has been counseled on taking having balanced diet Will discuss with case management about arranging transportation for Daily Hyperbaric rx History Interval history: She Seems to Complain of Left Foot Pain and Swelling, Pain Is 8 Out Of 10, Dull , New Relieving Factors, No Exacerbating Factors, Denies Fevers and Denies Chills Hospitalist Physical - Physical exam Narrative exam: General: Patient appears well in no distress HEENT: MMM, EOMI cardiac: S1-S2 heard lungs: clear to auscultation, abdomen: soft, nontender, nondistended bowel sounds positive extremities: Left foot swelling, recent TMA with stitches still in place Significant edema, erythema and tenderness, no fluctuance Skin: Erythema of left foot Neuro: no focal deficit Psych: appropriate behavior and mood, cognition intact - Constitutional Vitals: Temp Pulse Resp BP Pulse Ox 100 F H 117 H 16 131/80 97 10/21/16 08:10 10/21/16 08:10 10/21/16 08:10 10/21/16 08:10 10/21/16 00:25 General appearance: Absent: no acute distress Results - Labs CBC & Chem 7: 10/19/16 07:12 10/19/16 07:12 Labs: Laboratory Last Values WBC 16.4 K/mm3 (4.5-11.0) H 10/19/16 07:12 RBC 3.56 M/mm3 (3.65-5.03) L 10/19/16 07:12 Hgb 9.3 gm/dl (11.8-15.2) L 10/19/16 07:12 Hct 29.6 % (35.5-45.6) L 10/19/16 07:12 MCV 83 fl (84-94) L 10/19/16 07:12 MCH 26 pg (28-32) L 10/19/16 07:12 MCHC 31 % (32-34) L 10/19/16 07:12 RDW 30.1 % (13.2-15.2) H 10/19/16 07:12 Plt Count 365 K/mm3 (140-440) 10/19/16 07:12 Lymph % (Auto) 7.0 % (13.4-35.0) L 10/19/16 07:12 [place] % (Auto) 7.3 % (0.0-7.3) 10/19/16 07:12 Eos % (Auto) 2.4 % (0.0-4.3) 10/19/16 07:12 Baso % (Auto) 0.4 % (0.0-1.8) 10/19/16 07:12 Lymph # 1.1 K/mm3 (1.2-5.4) L 10/19/16 07:12 [place] # 1.2 K/mm3 (0.0-0.8) H 10/19/16 07:12 Eos # 0.4 K/mm3 (0.0-0.4) 10/19/16 07:12 Baso # 0.1 K/mm3 (0.0-0.1) 10/19/16 07:12 Add Manual Diff Complete 10/19/16 07:12 Total Counted 100 10/18/16 13:47 Seg Neutrophils % 82.9 % (40.0-70.0) H 10/19/16 07:12 Seg Neuts % (Manual) 87.0 % (40.0-70.0) H 10/18/16 13:47 Band Neutrophils % 4.0 % 10/18/16 13:47 Lymphocytes % (Manual) 6.0 % (13.4-35.0) L 10/18/16 13:47 Reactive Lymphs % (Man) 0 % 10/18/16 13:47 Monocytes % (Manual) 3.0 % (0.0-7.3) 10/18/16 13:47 Eosinophils % (Manual) 0 % (0.0-4.3) 10/18/16 13:47 Basophils % (Manual) 0 % (0.0-1.8) 10/18/16 13:47 Metamyelocytes % 0 % 10/18/16 13:47 Myelocytes % 0 % 10/18/16 13:47 Promyelocytes % 0 % 10/18/16 13:47 Blast Cells % 0 % 10/18/16 13:47 Nucleated RBC % Not Reportable 10/18/16 13:47 Seg Neutrophils # 13.3 K/mm3 (1.8-7.7) H 10/19/16 07:12 Seg Neutrophils # Man 19.7 K/mm3 (1.8-7.7) H 10/18/16 13:47 Band Neutrophils # 0.9 K/mm3 10/18/16 13:47 Lymphocytes # (Manual) 1.4 K/mm3 (1.2-5.4) 10/18/16 13:47 Abs React Lymphs (Man) 0.0 K/mm3 10/18/16 13:47 Monocytes # (Manual) 0.7 K/mm3 (0.0-0.8) 10/18/16 13:47 Eosinophils # (Manual) 0.0 K/mm3 (0.0-0.4) 10/18/16 13:47 Basophils # (Manual) 0.0 K/mm3 (0.0-0.1) 10/18/16 13:47 Metamyelocytes # 0.0 K/mm3 10/18/16 13:47 Myelocytes # 0.0 K/mm3 10/18/16 13:47 Promyelocytes # 0.0 K/mm3 10/18/16 13:47 Blast Cells # 0.0 K/mm3 10/18/16 13:47 WBC Morphology Not Reportable 10/18/16 13:47 Hypersegmented Neuts Not Reportable 10/18/16 13:47 Hyposegmented Neuts Not Reportable 10/18/16 13:47 Hypogranular Neuts Not Reportable 10/18/16 13:47 Smudge Cells Not Reportable 10/18/16 13:47 Toxic Granulation Not Reportable 10/18/16 13:47 Toxic Vacuolation Not Reportable 10/18/16 13:47 Dohle Bodies Not Reportable 10/18/16 13:47 Pelger-Huet Anomaly Not Reportable 10/18/16 13:47 Ezra Rods Not Reportable 10/18/16 13:47 Platelet Estimate Not Reportable 10/18/16 13:47 Clumped Platelets Not Reportable 10/18/16 13:47 Plt Clumps, EDTA Not Reportable 10/18/16 13:47 Large Platelets Not Reportable 10/18/16 13:47 Giant Platelets Not Reportable 10/18/16 13:47 Platelet Satelliting Not Reportable 10/18/16 13:47 Plt Morphology Comment Not Reportable 10/18/16 13:47 RBC Morphology Not Reportable 10/18/16 13:47 Dimorphic RBCs Yes 10/18/16 13:47 Polychromasia Not Reportable 10/18/16 13:47 Hypochromasia 1+ 10/18/16 13:47 Poikilocytosis Not Reportable 10/18/16 13:47 Anisocytosis 3+ 10/18/16 13:47 Microcytosis Not Reportable 10/18/16 13:47 Macrocytosis Not Reportable 10/18/16 13:47 Spherocytes Not Reportable 10/18/16 13:47 Pappenheimer Bodies Not Reportable 10/18/16 13:47 Sickle Cells Not Reportable 10/18/16 13:47 Target Cells Not Reportable 10/18/16 13:47 Tear Drop Cells Not Reportable 10/18/16 13:47 Ovalocytes Not Reportable 10/18/16 13:47 Helmet Cells Not Reportable 10/18/16 13:47 [place] Bodies Not Reportable 10/18/16 13:47 [place] Rings Not Reportable 10/18/16 13:47 Yaya Cells Not Reportable 10/18/16 13:47 Bite Cells Not Reportable 10/18/16 13:47 Crenated Cell Not Reportable 10/18/16 13:47 Elliptocytes Not Reportable 10/18/16 13:47 Acanthocytes (Spur) Not Reportable 10/18/16 13:47 Rouleaux Not Reportable 10/18/16 13:47 Hemoglobin C Crystals Not Reportable 10/18/16 13:47 Schistocytes Not Reportable 10/18/16 13:47 Malaria parasites Not Reportable 10/18/16 13:47 Yosef Bodies Not Reportable 10/18/16 13:47 Hem Pathologist Commnt No 10/18/16 13:47 PT 16.8 Sec. (12.2-14.9) H 10/21/16 05:37 INR 1.37 (0.87-1.13) H 10/21/16 05:37 VBG pH 7.351 (7.320-7.420) 10/18/16 13:47 Sodium 141 mmol/L (137-145) D 10/19/16 07:12 Potassium 4.0 mmol/L (3.6-5.0) 10/19/16 07:12 Chloride 101.6 mmol/L (98-107) 10/19/16 07:12 Carbon Dioxide 28 mmol/L (22-30) 10/19/16 07:12 Anion Gap 15 mmol/L 10/19/16 07:12 BUN 8 mg/dL (9-20) L 10/19/16 07:12 Creatinine 0.5 mg/dL (0.8-1.5) L 10/19/16 07:12 Estimated GFR > 60 ml/min 10/19/16 07:12 BUN/Creatinine Ratio 16.00 % 10/19/16 07:12 Glucose 95 mg/dL (75-100) 10/19/16 07:12 POC Glucose 411 (70-105) H 10/21/16 06:13 Lactic Acid 1.30 mmol/L (0.7-2.0) 10/18/16 18:08 Calcium 8.8 mg/dL (8.4-10.2) 10/19/16 07:12 Total Bilirubin 0.20 mg/dL (0.1-1.2) 10/19/16 07:12 AST 24 units/L (5-40) 10/19/16 07:12 ALT 33 units/L (7-56) 10/19/16 07:12 Alkaline Phosphatase 176 units/L (35-129) H 10/19/16 07:12 Total Protein 7.2 g/dL (6.3-8.2) 10/19/16 07:12 Albumin 2.6 g/dL (3.9-5) L 10/19/16 07:12 Albumin/Globulin Ratio 0.6 % 10/19/16 07:12 Urine Color Yellow (Yellow) 10/18/16 17:35 Urine Turbidity Clear (Clear) 10/18/16 17:35 Urine pH 6.0 (5.0-7.0) 10/18/16 17:35 Ur Specific [place] 1.029 (1.003-1.030) 10/18/16 17:35 Urine Protein 100 mg/dl mg/dL (Negative) 10/18/16 17:35 Urine Glucose (UA) >=500 mg/dL (Negative) 10/18/16 17:35 Urine Ketones 20 mg/dL (Negative) 10/18/16 17:35 Urine Blood Sm (Negative) 10/18/16 17:35 Urine Nitrite Neg (Negative) 10/18/16 17:35 Urine Bilirubin Neg (Negative) 10/18/16 17:35 Urine Urobilinogen < 2.0 mg/dL (<2.0) 10/18/16 17:35 Ur Leukocyte Esterase Neg (Negative) 10/18/16 17:35 Urine WBC (Auto) 1.0 /HPF (0.0-6.0) 10/18/16 17:35 Urine RBC (Auto) 7.0 /HPF (0.0-6.0) 10/18/16 17:35 Vancomycin Trough 3.8 ug/mL (5.0-20.0) L 10/21/16 05:37
[2016-10-21] MEDS: PLAVIX PO SCH (10:06)
[2016-10-21] MEDS: HEPARIN SUB-Q SCH ×2 (10:06→21:03)
[2016-10-21] MEDS: ZESTRIL PO SCH (10:06)
[2016-10-21] MEDS: PERCOCET 5/325 PO PRN (14:43)
[2016-10-21] MEDS ORDERED: D50W (25GM) IV ONE ×2 (16:38→17:00)
[2016-10-21] MEDS: LEVAQUIN PO SCH (17:41)
[2016-10-21] MEDS: COUMADIN PO SCH (17:41)
[2016-10-21] MEDS ORDERED: XYLOCAINE TOPICAL 2% TP ONE (18:00)
[2016-10-22] MEDS: DILAUDID IV PRN (01:41)
--- NOTE | 2016-10-22 06:20 | Progress Note ---
Assessment and Plan - Patient Problems (1) Cellulitis Current Visit: Yes Status: Acute Qualifiers: Site of cellulitis: extremity Site of cellulitis of extremity: lower extremity Site of cellulitis of trunk: S Laterality: left Qualified Code(s ): L03.116 - Cellulitis of left lower limb Plan to address problem: 1. Current oral antibiotic combination for 14-21 days, but duration based on clinical changes. 2. Monitor for drug-drug interactions with Coumadin. 3. HIV screen. (2) Peripheral vascular disease Current Visit: Yes Status: Acute Plan to address problem: Continuing anticoagulation. Monitoring re-perfusion changes per surgeon. Subjective Date of service: 10/22/16 Interval history: Elevated blood sugar. No new clinical issues. Case management assistance requested for transportation to/from daily hyperbaric therapy. Objective - Constitutional Vitals: Vital Signs Temp Pulse Resp BP Pulse Ox 98.9 F 106 H 18 145/84 97 10/21/16 23:47 10/21/16 23:47 10/22/16 01:41 10/21/16 23:47 10/21/16 23:47 Temperature -Last 24 Hours Temperature 98.9 F Temperature 98.6 F Temperature 100 F General appearance: Present: no acute distress - EENT ENT: edentulous - Respiratory Respiratory effort: normal - Cardiovascular Rhythm: regular Extremities: No edema Extremity abnormal: other (left TMA stump with necrotic edge, erythema at dorum is slightly improved) - Gastrointestinal General gastrointestinal: Present: non-distended - Integumentary Integumentary: no rash - Psychiatric Psychiatric: appropriate mood/affect - Labs CBC & Chem 7: 10/19/16 07:12 10/21/16 17:04 Labs: Abnormal lab results 10/19/16 10/21/16 10/21/16 Range/Units 15:42 05:37 05:37 PT 16.8 H (12.2-14.9) Sec. INR 1.37 H (0.87-1.13) Glucose (75-100) mg/dL POC Glucose > 500 H (70-105) Vancomycin Trough 3.8 L (5.0-20.0) ug/mL 10/21/16 10/21/16 10/21/16 Range/Units 06:13 11:49 16:31 PT (12.2-14.9) Sec. INR (0.87-1.13) Glucose (75-100) mg/dL POC Glucose 411 H 285 H < 40 L (70-105) Vancomycin Trough (5.0-20.0) ug/mL 10/21/16 10/21/16 10/21/16 Range/Units 16:50 17:04 21:27 PT (12.2-14.9) Sec. 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 Bisacodyl (Dulcolax) 10 mg OK QDAY PRN PRN Reason: Constipation unrelieved by MOM Clindamycin HCl (Cleocin) 300 mg PO TID [facility] Last Admin: 10/21/16 20:40 Dose: 300 mg Clopidogrel Bisulfate (Plavix) 75 mg PO QDAY [facility] Last Admin: 10/21/16 10:06 Dose: 75 mg Gabapentin (Neurontin) 600 mg PO TID [facility] Last Admin: 10/21/16 20:40 Dose: 600 mg Heparin Sodium (Porcine) (Heparin) 5,000 unit SUB-Q Q12HR [facility] Last Admin: 10/21/16 21:03 Dose: 5,000 unit Hydromorphone HCl (Dilaudid) 2 mg IV Q3H PRN PRN Reason: Pain , Severe (7-10) Last Admin: 10/22/16 01:41 Dose: 2 mg Sodium Chloride (Nacl 0.9% 1000 Ml) 1,000 mls @ 75 mls/hr IV DIRECT [facility] Last Admin: 10/21/16 06:15 Dose: 75 mls/hr Insulin Aspart (Novolog) 0 units SUB-Q AC [facility] PRN Reason: Protocol Last Admin: 10/21/16 17:41 Dose: Not Given Insulin Aspart (Novolog) 30 units SUB-Q BIDDIAB [facility] Levofloxacin (Levaquin) 750 mg PO Q24H [facility] Last Admin: 10/21/16 17:41 Dose: 750 mg Lisinopril (Zestril) 20 mg PO QDAY [facility] Last Admin: 10/21/16 10:06 Dose: 20 mg Magnesium Hydroxide (Milk Of Magnesia) 30 ml PO Q4H PRN PRN Reason: Constipation Ondansetron HCl (Zofran) 4 mg IV Q8H PRN PRN Reason: N/V unrelieved by [place]lan Oxycodone/Acetaminophen (Percocet 5/325) 2 tab PO Q6H PRN PRN Reason: Moder Pain unrelieved by [place] Last Admin: 10/21/16 14:43 Dose: 2 tab Warfarin Sodium (Coumadin Pharmacy To Dose) 1 each PO PKCONSULT [facility] PRN Reason: Protocol Warfarin Sodium (Coumadin) 7.5 mg PO DAILY@1700 [facility] Last Admin: 10/21/16 17:41 Dose: 7.5 mg Zolpidem Tartrate (Ambien) 5 mg PO QHS PRN PRN Reason: Insomnia Last Admin: 10/19/16 00:25 Dose: 5 mg
[2016-10-22] MEDS: NOVOLOG SUB-Q SCH ×3 (06:39→16:30)
--- NOTE | 2016-10-22 07:40 | Vascular Lab Report ---
LOWER EXTREMITY ARTERIAL PHYSIOLOGIC STUDY: REASON FOR EXAM: Peripheral arterial disease. COMMENTS ON THE RIGHT: Ankle brachial index is not obtained due to non-compressibility of the vessels. This value is abnormal. Toe brachial index is 1.69. This value is elevated. Wound healing is likely. Pulse volume recording at the level of the ankle is normal. Exercise testing was not done. COMMENTS ON THE LEFT: Ankle brachial index is 1.23. This value is normal. Toe brachial index is not obtained due to absence of toes. Pulse volume recording at the level of the ankle is normal. Exercise testing was not done. IMPRESSION: RIGHT: Calcified nonocclusive peripheral vascular disease LEFT:No hemodynamically significant arterial disease.
--- NOTE | 2016-10-22 07:42 | Vascular Lab Report ---
LOWER EXTREMITY ARTERIAL DUPLEX: REASON FOR EXAM: Peripheral arterial disease. COMMENTS ON THE RIGHT: Triphasic waveforms are seen proximally. Biphasic waveforms are seen distally. No significant velocity gradients are identified. Scattered calcified plaque noted throughout the vessels. Findings are consistent with normal perfusion. Findings are consistent with the ability to heal distal wounds. COMMENTS ON THE LEFT: Triphasic waveforms are seen proximally. Monophasic waveforms are seen distally. Patent infrapopliteal stents noted. Calcified scalp like noted throughout the vessels. Findings are consistent with normal perfusion. Findings are consistent with the ability to heal distal wounds. IMPRESSION: RIGHT: Essentially normal arterial flow. LEFT:Essentially normal arterial flow/patent AT/PT stents noted.
[2016-10-22] MEDS ORDERED: NOVOLOG SUB-Q SCH (08:00)
[2016-10-22 08:23] LABS: Mean Corpuscular HGB Conc 29 % (32-34); Mean Corpuscular Volume 87 fl (84-94); Platelet Count 386 K/mm3 (140-440); Red Blood Count 3.35 M/mm3 (3.65-5.03)
[2016-10-22 08:26] LABS: Hematocrit 29.2 % (35.5-45.6); Hemoglobin 8.6 gm/dl (11.8-15.2); Mean Corpuscular Hemoglobin 26 pg (28-32); White Blood Count 28.3 K/mm3 (4.5-11.0)
[2016-10-22 08:27] LABS: Red Cell Distribution Width 28.7 % (13.2-15.2)
[2016-10-22 08:57] LABS: INR 1.74 (0.87-1.13)
[2016-10-22] MEDS: HEPARIN SUB-Q SCH (09:09)
[2016-10-22] MEDS: PLAVIX PO SCH (09:11)
[2016-10-22] MEDS: NEURONTIN PO SCH ×2 (09:11→14:41)
[2016-10-22] MEDS: ZESTRIL PO SCH (09:11)
[2016-10-22] MEDS: CLEOCIN PO SCH ×2 (09:11→14:41)
[2016-10-22] MEDS: PERCOCET 5/325 PO PRN (09:16)
[2016-10-22 10:17] LABS: HIV-1 Antigen p24 Non React (Non React); HIVR-1/2 Ab Non React (Non React)
[2016-10-22 10:20] LABS: Blastocytes % (Manual) 0 %
[2016-10-22 10:21] LABS: Anisocytosis 3+; Diff Status Complete; Hypochromasia 1+
--- NOTE | 2016-10-22 13:52 | Discharge Summary ---
Providers - Providers Date of Admission: 10/18/16 21:58 Attending physician: JASMIN AL MD 10/18/16 22:06 Consult to Physician [CONS] Routine Consulting Provider: DORIAN REED Reason For Exam: Gangrene Place consult to:: DR. REED Notified:: DR. REED Phone number called:: [phone] Was contact made?: Yes If yes, spoke with:: SASHA Elias called:: 09:37 Comment:: BETH NOTIFIED 10/19/16 07:44 Consult to Physician [CONS] Routine Consulting Provider: CARISSA LOCKHART Reason For Exam: left foot cellulitis Place consult to:: DR. LOCKHART Notified:: DR. LOCKHART Phone number called:: [phone] Was contact made?: Yes If yes, spoke with:: DR. LOCKHART Time called:: 09:41 Comment:: BETH NOTIFIED 10/19/16 07:45 Consult to Physician [CONS] Routine Consulting Provider: MERY MARQUES Reason For Exam: left foot infection Place consult to:: DR. MARQUES Notified:: DR. MARQUES Phone number called:: [phone] Was contact made?: Yes If yes, spoke with:: DR. MARQUES Time called:: 09:42 Comment:: BETH NOTIFIED Primary care physician: MABLE MAIER Hospitalization Condition: Fair Hospital course: 46-year-old male with extensive history of peripheral arterial disease, that status post a left TMA on 09/27/16, history of PE, diabetes, anemia of chronic disease, he presented with left foot swelling and pain 1. sepsis due to Left foot cellulitis He was treated with IV antibiotics and transitioned to oral antibiotics prior to discharge Vascular surgery consult appreciated Vascular surgery consult appreciated, they do not believe that there is any evidence of wet gangrene. There are impression is that the patient most likely has reperfusion edema/changes and cellulitis. The plan will be to continue patient on antibiotics and hyperbaric oxygen. Which will provide the best chance of healing underneath the eschar and limb salvage which will also allow for delayed debridement by podiatry. However if the patient does not improve he may require earlier debridements and if unsuccessful, will need BKA Continue Plavix and Coumadin, he said follow-up in bariatric wound care clinic Saturday through Fridays 2. DM with hyperglycemia He was treated with instruments, 3. hx of PE continue warfarin 4. Anemia of Chronic disease stable, monitor hg 5. HTN continue lisinopril 6. Moderate malnutrition has been counseled on having balanced diet Disposition: DC/[place]-06 HOME UNDER HOME [facility] Time spent for discharge: 35 minutes Core Measure Documentation - Palliative Care Palliative Care/ Comfort Measures: Not Applicable - Core Measures Any of the following diagnoses?: none Exam - Physical Exam Narrative exam: General: Patient appears well in no distress HEENT: MMM, EOMI cardiac: S1-S2 heard lungs: clear to auscultation, abdomen: soft, nontender, nondistended bowel sounds positive extremities: Left foot swelling, recent TMA with stitches still in place edema, erythema and tenderness, no fluctuance Skin: Erythema of left foot Neuro: no focal deficit Psych: appropriate behavior and mood, cognition intact - Constitutional Vitals: Temp Pulse Resp BP Pulse Ox 98.6 F 86 18 138/82 97 10/22/16 08:00 10/22/16 08:00 10/22/16 08:00 10/22/16 08:00 10/22/16 08:00 Plan Follow up with: PRIMARY CAREMD [Referring] - 3-5 Days PAMELLA DE LA FUENTE MD [Staff Physician] - 7 Days CARISSA LOCKHART MD [Staff Physician] - 7 Days Forms: Warfarin Discharge Instruction Prescriptions: Clindamycin [Clindamycin CAP] 300 mg PO TID #60 capsule Clopidogrel [Plavix] 75 mg PO QDAY #30 tablet Gabapentin [Neurontin] 600 mg PO TID #90 tablet Insulin Lispro [Humalog Kwikpen 200 UNITS/ML] 30 units SC BID #5 insuln.pen Levofloxacin [Levaquin TAB] 750 mg PO Q24H #20 tablet Lisinopril [Zestril TAB] 20 mg PO QDAY #30 tablet oxyCODONE /ACETAMINOPHEN [Percocet 5/325 mg] 1 tab PO Q6H PRN #30 tablet PRN Reason: Moder Pain Unrelieved By [place] Warfarin [Coumadin] 5 mg PO DAILY@1700 #30 tablet
[2016-10-22 16:53] VITALS: BP 122/70
[2016-10-22] MEDS ORDERED: COUMADIN PO SCH (17:00)
--- NOTE | 2016-10-23 00:16 | Consultation ---
SUBJECTIVE: The patient was visited bedside and appeared to be resting well, but appeared to be anxious. Chart reviewed. Discussed the patient treatment and treatment options. There was no bandage on the patient's foot upon inspection. OBJECTIVE FINDINGS: Reveal mild gangrenous changes at the distal stump with sutures intact. However, at the periphery of the distal stump there appears to be pink tissue noted upon debridement of the periphery of the distal stump; the capillary fill time being less than 5 seconds to the affected area, which was debrided. The foot is warm to touch. Mild swelling noted. Wound appears to be static with slight improvement since the last visit with the patient in office 1 week ago. No odor, no active drainage present. However, the wound appears to be retracting and painful to touch. ASSESSMENT: Status post TMA with gangrenous change; however, optimistic. PLAN: After discussion with the patient treatment and treatment options, debridement of periphery of the surgical site to reveal pink tissue. The patient was recommended to continue with hyperbaric oxygen treatment and to refrain from possible BKA at this time. The patient advised that possible debridement may be needed status post completion of the hyperbaric oxygen treatment and Xylocaine jelly was recommended to be applied to the affected area daily upon bandage change for vasodilation with light bandaging. The patient will return to my office in 3-5 days after discharge for followup. Any additional questions, please contact our podiatrician. JOB# [id number] FER/WINNIE
[2016-10-23] MEDS ORDERED: NOVOLOG SUB-Q SCH (08:00)
== END 2016-10-22 18:07 | disposition home health service (06) | DRG 872 ==
LOC: ED 13:23 → 3A 21:58
PROVIDERS: ADMIT Internal Medicine; ATTEND Internal Medicine
DX: A41.9 Sepsis, unspecified organism (principal); L03.116 Cellulitis of left lower limb; E46 Unspecified protein-calorie malnutrition; E10.65 Type 1 diabetes mellitus with hyperglycemia; M19.90 Unspecified osteoarthritis, unspecified site; J44.9 Chronic obstructive pulmonary disease, unspecified; I10 Essential (primary) hypertension; I73.9 Peripheral vascular disease, unspecified; D63.8 Anemia in other chronic diseases classified elsewhere; E10.40 Type 1 diabetes mellitus with diabetic neuropathy, unspecified; E10.51 Type 1 diabetes mellitus with diabetic peripheral angiopathy without gangrene; Z86.711 Personal history of pulmonary embolism; Z89.422 Acquired absence of other left toe(s); Z68.20 Body mass index [BMI] 20.0-20.9, adult
CPT/HCPCS: 36415; 71010; 80053; 80202; 81001; 82140; 82805; 82947; 82962; 85007; 85025; 85610; 87040; 87086; 87806; 93005; 93010; 93922; 93925; 96361; 96365; 96372; 96375; 99285; J1170; J1644; J1815; J2405; J2543; J3370; J7030

== ENCOUNTER 2016-10-24 09:45 | Outpatient (CLI) | payer MEDICARE ==
--- NOTE | 2016-10-19 11:28 | History and Physical Report ---
CHIEF COMPLAINT: Left foot discoloration for 1 week. HISTORY OF PRESENT ILLNESS: A 46-year-old male who presents to the ER with left foot discoloration. The patient recently had surgery ____ the toe is amputated by foot surgeon, Dr. Marcelo. The flap closure ____, but highly pigmented and black in color at the closure of the flap with some drainage. Also, the patient had some pain, but mostly numbness in the left foot. This has been going on for about a week. No fever. No chills. PAST MEDICAL HISTORY: Significant for hypertension, insulin-dependent diabetes, arthritis, chronic obstructive pulmonary disease, diabetic neuropathy. PAST SURGICAL HISTORY: The patient had intestinal obstruction for which he had surgery. The patient was not clear. The patient also had some splenic surgery, but not splenectomy. Left toe was amputated recently by Dr. Marcelo. SOCIAL HISTORY: He was a smoker until a couple of months ago. FAMILY HISTORY: Significant for hypertension. CURRENT MEDICATIONS: Clindamycin 150 mg 3 times a day, Humalog 30 units subcu t.i.d., insulin NPH 15 units b.i.d., lisinopril 20 mg once a day, Coumadin 5 mg p.o. daily, oxycodone 1 tablet p.o. q. 6 p.r.n. REVIEW OF SYSTEMS: CONSTITUTIONAL: No fever. No chills. HEENT: No sore throat. No postnasal drip. CARDIOVASCULAR AND RESPIRATORY SYSTEM: No shortness of breath. No chest pain. No palpitations. GASTROINTESTINAL: No nausea. No vomiting. No diarrhea. MUSCULOSKELETAL SYSTEM: No joint pains. CENTRAL NERVOUS SYSTEM: No syncope. No seizures. EXTREMITIES: Left foot infected and gangrenous for 1 week. PSYCHIATRIC: No depression. No suicidal ideation. A 14-point review of systems done. PHYSICAL EXAMINATION: GENERAL: Young male, cooperative during examination. VITAL SIGNS: Temperature is 98.9, pulse is 103, respirations are 17, blood pressure is 111/71. HEENT: Unremarkable. Pupils equal and reactive. NECK: Supple. No lymphadenopathy. No thyromegaly. LUNGS: Clear to auscultation and percussion. Good air entry. CARDIOVASCULAR: S1, S2 heard. No gallop. No murmur. No rub. Apical impulse in left fifth intercostal space in midclavicular line. ABDOMEN: Soft and benign. No hepatosplenomegaly. No guarding. No rigidity. Hernial orifices are normal. EXTREMITIES: Left foot gangrenous changes at the site of flap closure on the left foot. It was amputation of all the toes, not transmetatarsal amputation. It was the distal amputation. Gangrenous changes of the flap extending in the left distally 2 cm onto the flap and also to the plantar surface. Slight oozing in the ____. Tenderness present. CENTRAL NERVOUS SYSTEM: Alert and oriented x 4. Nonfocal exam. Decreased sensation in both lower extremities. Pulses were very weak. LABORATORY DATA: Significant for white count of 23,700, H and H is 9.9 and 33.4, platelet count is ____. Sodium is 134, chloride is 91.3, BUN and creatinine is 10 and 0.6. ASSESSMENT AND PLAN: 1. Gangrene of the left distal foot. Surgery was done. The patient may need further amputation, TMA of the left ankle. We will defer to Surgery. Ortho and Vascular Surgery consulted. 2. Anticoagulation. The patient is on Coumadin and Plavix for coronary artery disease. We will hold the Plavix and Coumadin for impending surgery. Heparin 5000 q. 8 for the time being. 3. Peripheral neuropathy. Continue gabapentin 600 mg three times a day. 4. Insulin-dependent diabetes. Continue insulin 30 units twice a day and coverage. 5. Hypertension. Continue lisinopril 20 mg daily. 6. Deep venous thrombosis prophylaxis. Heparin 5000 q. 8. 7. Antibiotics. The patient was started on vancomycin and Zosyn for gangrene. JOB# [id number] VSOlivier/NTS
== END 2016-10-24 09:46 | disposition home or self-care (01) ==
LOC: WOUND 09:45
PROVIDERS: ATTEND Surgery
DX: T86.828 Other complications of skin graft (allograft) (autograft) (principal); E11.65 Type 2 diabetes mellitus with hyperglycemia; E11.43 Type 2 diabetes mellitus with diabetic autonomic (poly)neuropathy; E11.52 Type 2 diabetes mellitus with diabetic peripheral angiopathy with gangrene; I10 Essential (primary) hypertension; E46 Unspecified protein-calorie malnutrition; Z89.422 Acquired absence of other left toe(s); Z87.891 Personal history of nicotine dependence; Y83.2 Surgical operation with anastomosis, bypass or graft as the cause of abnormal reaction of the patient, or of later complication, without mention of misadventure at the time of the procedure
CPT/HCPCS: 82962; G0277; 99183

== ENCOUNTER 2016-10-25 09:55 | Outpatient (CLI) | payer MEDICARE ==
[2016-10-25] MEDS ORDERED: NACL 0.9% IR PRN (16:04)
[2016-10-25] MEDS ORDERED: XYLOCAINE TOPICAL 4% TP ONE (17:00)
== END 2016-10-25 09:56 | disposition home or self-care (01) ==
LOC: WOUND 09:55
PROVIDERS: ATTEND Nurse Practitioner
DX: T87.89 Other complications of amputation stump (principal); E11.622 Type 2 diabetes mellitus with other skin ulcer; L97.821 Non-pressure chronic ulcer of other part of left lower leg limited to breakdown of skin; L97.811 Non-pressure chronic ulcer of other part of right lower leg limited to breakdown of skin; E11.65 Type 2 diabetes mellitus with hyperglycemia; E11.52 Type 2 diabetes mellitus with diabetic peripheral angiopathy with gangrene; E11.43 Type 2 diabetes mellitus with diabetic autonomic (poly)neuropathy; I10 Essential (primary) hypertension; E46 Unspecified protein-calorie malnutrition; Z87.891 Personal history of nicotine dependence; Y83.5 Amputation of limb(s) as the cause of abnormal reaction of the patient, or of later complication, without mention of misadventure at the time of the procedure
CPT/HCPCS: 82962; G0277; G0463; 99183; 99214

== ENCOUNTER 2016-11-10 09:00 | Day surgery (SDC) | payer MEDICARE ==
--- NOTE | 2016-11-10 07:30 | Anesthesia Consultation ---
Anesthesia Consult and Med Hx Date of service: 11/10/16 - Airway Anesthetic Teeth Evaluation: Good ROM Head & Neck: Adequate Mental/Hyoid Distance: Adequate Mallampati Class: Class II - Pulmonary Exam CTA: Yes - Cardiac Exam Cardiac Exam: RRR - Pre-Operative Health Status ASA Pre-Surgery Classification: ASA4 Proposed Anesthetic Plan: MAC - Pulmonary Hx Smoking: Yes (smoked marijuana, quit in august 2016 (did not smake cigarettes) ) Hx Asthma: No Hx Respiratory Symptoms: Yes (PE, 2014. DMITRY high risk.) COPD: No Hx Pneumonia: No Hx Sleep Apnea: No - Cardiovascular System Hx Hypertension: Yes Hx Angina: No Hx Pacemaker: No Hx Peripheral Vascular Disease: Yes - Central Nervous System Hx Neuromuscular Disorder: Yes (peripheral neuropathy) Hx Back Pain: Yes Hx Psychiatric Problems: No - Endocrine Hx End Stage Renal Disease: No Hx Insulin Dependent Diabetes: Yes - Hematic Hx Anemia: Yes Hx Sickle Cell Disease: No - Other Systems Hx Alcohol Use: Yes (beer) Hx Substance Use: Yes (marijuana) Hx Cancer: No
--- NOTE | 2016-11-10 07:35 | Anesthesia Day of Surgery ---
Anesthesia Day of Surgery - Day of Surgery Patient Examined: Yes Patient H&P Reviewed: Yes Patient is NPO: Yes
--- NOTE | 2016-11-10 08:58 | Post Anesthesia Evaluation ---
- Post Anesthesia Evaluation Patient Participated: No (resting comfortably) Airway Patent: Yes Stable Respiratory Function: Yes Nausea/Vomiting: No Temp > 96.8F: Yes Pain Manageable: Yes Adequeate Hydration: Yes Anesthesia Complications: No Block Receding Appropriately: Not Applicable Patient on Ventilator: No
[~2016-11-10 09:00] MED LIST: DIPRIVAN 10 MG/ML IV ONE; NACL 0.9% 1000 ML 1,000 ML IV SCH
[2016-11-10 09:25] VITALS: BP 135/84
--- NOTE | 2016-11-10 14:22 | Operative Report ---
PROCEDURE: EGD. PREOPERATIVE DIAGNOSIS: Iron deficiency anemia. POSTOPERATIVE DIAGNOSES: Prior gastric surgery with small gastric pouch. Small bowel appeared normal. ANESTHESIA: Monitored anesthesia care. COMPLICATIONS: No immediate complications. ESTIMATED BLOOD LOSS: None. DESCRIPTION OF PROCEDURE: After consent was obtained, the patient was placed in left lateral decubitus position. Standard upper Fujinon scope was advanced with direct vision through the mouth and advanced to the suspected distal duodenum versus jejunum without difficulty. The patient tolerated the procedure well. The views of the mucosa were good. FINDINGS: There was mild esophagitis in the lower third of the esophagus otherwise esophagus appeared normal. There is evidence of prior gastric surgery with a small gastric pouch with suture seen at the anastomosis site. The scope was advanced directly into the small bowel and advanced to ____ of the jejunum. The visualized portion of the upper endoscopy appeared normal otherwise. IMPRESSION: Evidence of prior gastric surgery with small gastric pouch. RECOMMENDATIONS: Suspect this may be contributing to the patient's anemia. Unknown detail with the type of surgery, the patient had the reasoning for the surgery. We will proceed with colonoscopy. JOB# [id number] LEXI/NTS
--- NOTE | 2016-11-10 14:23 | Operative Report ---
PROCEDURE: Colonoscopy. PREOPERATIVE DIAGNOSIS: Iron deficiency anemia. POSTOPERATIVE DIAGNOSES: Mild diverticulosis, internal hemorrhoids. ANESTHESIA: Monitored anesthesia care. COMPLICATIONS: No immediate complications. ESTIMATED BLOOD LOSS: None. DESCRIPTION OF PROCEDURE: After consent was obtained, the patient was placed in left lateral decubitus position. The Fujinon colonoscope was inserted through the anus and advanced to the cecum without difficulty. He tolerated the procedure well. The views of the mucosa were fair. The quality of prep was fair. FINDINGS: 1. There is mild diverticulosis scattered throughout the colon. 2. Moderate-sized internal hemorrhoids. 3. Otherwise, no significant findings seen during colonoscopy. IMPRESSION: 1. Mild diverticulosis. 2. Moderate-sized internal hemorrhoids. RECOMMENDATIONS: 1. High-fiber diet daily. 2. Okay to resume anticoagulation from GI perspective. The patient will need IV iron, given poor absorption related to his gastric anatomy. Followup in the GI clinic in 3-4 weeks after discharge. JOB# [id number] LEXI/NTS
== END 2016-11-10 09:01 | disposition home or self-care (01) ==
LOC: GIO 09:00
PROVIDERS: ATTEND Internal Medicine Gastroenterology
DX: K57.30 Diverticulosis of large intestine without perforation or abscess without bleeding (principal); D50.9 Iron deficiency anemia, unspecified; K64.8 Other hemorrhoids; K31.4 Gastric diverticulum; K20.9 Esophagitis, unspecified; F12.21 Cannabis dependence, in remission; E11.42 Type 2 diabetes mellitus with diabetic polyneuropathy; Z98.0 Intestinal bypass and anastomosis status; Z86.711 Personal history of pulmonary embolism; Z87.891 Personal history of nicotine dependence; Z72.89 Other problems related to lifestyle
CPT/HCPCS: J2704

== ENCOUNTER 2016-11-22 13:12 | Outpatient (CLI) | payer MEDICARE ==
[~2016-11-22 13:12] MED LIST changes: -DIPRIVAN 10 MG/ML IV ONE; -NACL 0.9% 1000 ML 1,000 ML IV SCH; +NACL 0.9% 500 ML IR ONE; +WATER FOR IRRIG STERILE IR ONE; +WATER FOR IRRIG STERILE ONE; +XYLOCAINE TOPICAL 4% TP ONE
== END 2016-11-22 13:13 | disposition home or self-care (01) ==
LOC: WOUND 13:12
PROVIDERS: ATTEND Nurse Practitioner
DX: T87.89 Other complications of amputation stump (principal); E11.51 Type 2 diabetes mellitus with diabetic peripheral angiopathy without gangrene; E11.40 Type 2 diabetes mellitus with diabetic neuropathy, unspecified; E46 Unspecified protein-calorie malnutrition; I10 Essential (primary) hypertension; F32.9 Major depressive disorder, single episode, unspecified; Z98.62 Peripheral vascular angioplasty status; Z87.891 Personal history of nicotine dependence; Y83.5 Amputation of limb(s) as the cause of abnormal reaction of the patient, or of later complication, without mention of misadventure at the time of the procedure
CPT/HCPCS: 99215; G0463

== ENCOUNTER 2016-12-27 11:48 | Day surgery (SDC) | payer MEDICARE ==
[~2016-12-27 11:48] MED LIST changes: +CYCLOGYL OD ONE; +CYCLOGYL ONE; +GONAK OD ONE; +GONAK ONE; +IOPIDINE OD ONE; +IOPIDINE ONE; +MYDRIACYL OD ONE; +MYDRIACYL ONE; -NACL 0.9% 500 ML IR ONE; +NEOFRIN OD ONE; +NEOFRIN ONE; +PONTOCAINE IJ ONE; +TETRACAINE 0.5% ONE; +TOBRADEX OD ONE; +TOBRADEX ONE; -WATER FOR IRRIG STERILE IR ONE; -WATER FOR IRRIG STERILE ONE; +XYLOCAINE 2%/ EPI 1:200,000 INFILTRATI ONE; +XYLOCAINE 2%/EPI 1:100,000 INFILTRATI ONE; -XYLOCAINE TOPICAL 4% TP ONE
[2016-12-27] MEDS ORDERED: IOPIDINE OD ONE (12:16)
[2016-12-27] MEDS ORDERED: MYDRIACYL OD ONE (12:16)
[2016-12-27] MEDS ORDERED: NEOFRIN OD ONE (12:16)
[2016-12-27] MEDS ORDERED: XYLOCAINE 2%/EPI 1:100,000 INFILTRATI ONE (12:59)
[2016-12-27] MEDS ORDERED: CYCLOGYL OD ONE (12:59)
[2016-12-27] MEDS ORDERED: GONAK OD ONE (12:59)
[2016-12-27 13:04] VITALS: BP 104/78
[2016-12-27] MEDS ORDERED: TOBRADEX OD ONE (13:28)
== END 2016-12-27 11:49 | disposition home or self-care (01) ==
LOC: OR 11:48
PROVIDERS: ATTEND Specialist
DX: E11.319 Type 2 diabetes mellitus with unspecified diabetic retinopathy without macular edema (principal)
CPT/HCPCS: 82962

== ENCOUNTER 2017-01-03 11:35 | Day surgery (SDC) | payer MEDICARE ==
[~2017-01-03 11:35] MED LIST changes: -CYCLOGYL OD ONE; +CYCLOGYL OU ONE; -GONAK OD ONE; +GONAK OU ONE; -IOPIDINE OD ONE; +IOPIDINE OS ONE; -MYDRIACYL OD ONE; +MYDRIACYL OS ONE; -NEOFRIN OD ONE; +NEOFRIN OS ONE; -TOBRADEX OD ONE; +TOBRADEX OS ONE
[2017-01-03] MEDS ORDERED: XYLOCAINE 2%/EPI 1:100,000 INFILTRATI ONE (12:09)
[2017-01-03] MEDS ORDERED: IOPIDINE OS ONE (12:10)
[2017-01-03] MEDS ORDERED: NEOFRIN OS ONE (12:10)
[2017-01-03] MEDS ORDERED: MYDRIACYL OS ONE (12:10)
[2017-01-03 12:34] VITALS: BP 106/80
[2017-01-03] MEDS ORDERED: TETRACAINE 0.5% ONE (12:36)
[2017-01-03] MEDS ORDERED: PONTOCAINE IJ ONE (12:39)
[2017-01-03] MEDS ORDERED: CYCLOGYL OS ONE (12:39)
[2017-01-03] MEDS ORDERED: GONAK OU ONE (12:39)
[2017-01-03] MEDS ORDERED: TOBRADEX OS ONE (13:09)
--- NOTE | 2017-01-07 11:54 | History and Physical Report ---
CHIEF COMPLAINT: Infected left foot. HISTORY OF PRESENT ILLNESS: A 46-year-old with history of peripheral arterial disease, insulin-dependent diabetes, hypertension, comes in for left foot infection going on for the last about 1 to 2 weeks. Left foot badly infected. No fever, no chills. PAST MEDICAL HISTORY: Significant for hypertension, insulin-dependent diabetes, anticoagulation, and peripheral arterial disease. CURRENT MEDICATIONS: On the chart. PAST SURGICAL HISTORY: Abdominal surgery secondary to blockage, spleen surgery, left toe was amputated. SOCIAL HISTORY: Former smoker. FAMILY HISTORY: Hypertension. REVIEW OF SYSTEMS: Other than left foot pain and left foot ulcer, review of systems essentially negative. PHYSICAL EXAMINATION: GENERAL: A middle-aged male, cooperative during examination. VITAL SIGNS: Blood pressure is 136/86, respirations 16, temperature 98, and pulse is 70. HEENT: Unremarkable. Pupils are equal and reactive. NECK: Supple, no lymphadenopathy, no thyromegaly. LUNGS: Clear to auscultation and percussion. Good air entry. CARDIOVASCULAR: S1, S2 heard. No gallop, no murmur, no rub. Apical impulse in the left fifth intercostal space and midclavicular line. ABDOMEN: Soft and benign. EXTREMITIES: Left foot ulcer with surrounding erythema present. LABORATORY DATA: White count is 22,700. Electrolytes are normal. Sodium was slightly low at 134. ASSESSMENT AND PLAN: 1. Sepsis secondary to left foot cellulitis. The patient was started on broad-spectrum IV antibiotics and vancomycin. 2. Diabetes mellitus with hyperglycemia, insulin dosages adjusted. History of pulmonary embolism, warfarin continued. 3. Anemia of chronic disease. Monitor hemoglobin. 4. Hypertension. Continue lisinopril. 5. Deep venous thrombosis prophylaxis, Lovenox 40 mg subcutaneous daily. 6. History and physical done. JOB# [id number] VSM/NTS
== END 2017-01-03 11:36 | disposition home or self-care (01) ==
LOC: OR 11:35
PROVIDERS: ATTEND Specialist
DX: E11.319 Type 2 diabetes mellitus with unspecified diabetic retinopathy without macular edema (principal)
CPT/HCPCS: 82962

== ENCOUNTER 2017-11-05 11:51 | Outpatient (CLI) | payer MEDICARE ==
--- NOTE | 2017-11-05 12:38 | XRay Report ---
ROUTINE CHEST, TWO VIEWS: HISTORY: Preoperative evaluation, hypertension. The trachea, heart, mediastinal contour, lung roque and bony thorax are unremarkable. IMPRESSION: Unremarkable chest x-ray. No change since 10/18/16.
== END 2017-11-05 11:52 | disposition home or self-care (01) ==
LOC: CARD 11:51
PROVIDERS: ATTEND Family Medicine
DX: Z01.818 Encounter for other preprocedural examination (principal); I10 Essential (primary) hypertension; D50.0 Iron deficiency anemia secondary to blood loss (chronic); E04.1 Nontoxic single thyroid nodule; E10.9 Type 1 diabetes mellitus without complications; M19.90 Unspecified osteoarthritis, unspecified site; Z82.49 Family history of ischemic heart disease and other diseases of the circulatory system; Z89.432 Acquired absence of left foot; Z83.3 Family history of diabetes mellitus
CPT/HCPCS: 71046; 93005; 93010

== ENCOUNTER 2018-07-03 14:35 | Inpatient (IN) | payer MEDICARE ==
[2018-07-03] MEDS ORDERED: D50W (25GM) Syringe IV PRN (15:54)
[2018-07-03] MEDS ORDERED: TYLENOL PO PRN (16:23)
[2018-07-03] MEDS ORDERED: APRESOLINE PO PRN (16:38)
--- NOTE | 2018-07-03 17:08 | History and Physical Report ---
History of Present Illness Date: 07/03/18 Referring Facility: [facility] Chief Complaint: R BKA History of present illness: 47-year-old male with a left BKA who stated he been doing a lot of walking recently. He noticed his right toe had turned hard and black and sought as sistance at the ER. 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 He underwent a guillotine procedure for for his right leg until it could be completed several days later. He underwent antibiotic treatment. His blood sugars were also difficult to control with frequent elevations into the 300 area. Do not see a recent A1c available in the system. He was previously independent. We will work with him to return to a level of independence and if time allows try to have him fitted for his right prosthesis with Metal Hanging Helper prosthetics. Wounds on the left stump will need to heal prior to being L use his left prosthesis again. Patient had some nausea and vomiting accompanied by a low blood sugar prior to being transferred to the rehabilitation unit which delayed his coming over. Per the patient and the nurse seems like it may have been food related and he feels better now. Patient noted to have normal WBC on June 27 however all white count prior to that were elevated up to 37.7 at the high. WBC on 07/02 was 13.1, he has completed an tibiotics we will monitor this for any continued elevation are signs of infectious process. Hemoglobin upon presentation and was 9.5 on June 23, and has slowly decreased to 8.8. We'll continue to monitor. After the patient was medically stabilized they were transferred for further rehabilitation. All available medical records have been reviewed. Plan of care was discussed with patient. Past History Past Medical History: diabetes, hypertension Past Surgical History: Other (L BKA,) Social history: single, lives with family, other (1 level house). denies: smoking, alcohol abuse, prescription drug abuse Family history: CAD, diabetes, hypertension, other (ESRD) Medications and Allergies Allergies Allergy/AdvReac Type Severity Reaction Status Date / Time No Known Allergies Allergy Verified 06/23/18 13:57 Home Medications Medication Instructions Recorded Confirmed Last Taken Type Gabapentin [Neurontin] 600 mg PO TID #90 capsule 11/11/16 06/24/18 Unknown Rx HYDROcodone/APAP 7.5-325 [[place] 1 each PO Q6HR PRN #60 tablet 07/02/18 Unknown Rx 7.5/325] Acetaminophen [Acetaminophen TAB] 650 mg PO Q4H PRN #15 tablet 07/03/18 Unknown Rx Enoxaparin [Lovenox] 40 mg SUB-Q QDAY@1000 #1 syringe 07/03/18 Unknown Rx Insulin Glargine [Lantus VIAL] 10 units SUB-Q QHS #100 units 07/03/18 Unknown Rx Insulin Regular, Human [HumuLIN R] 1 dose SUB-Q ACHS PRN #100 units 07/03/18 Unknown Rx Metoprolol [Lopressor TAB] 25 mg PO BID #60 tablet 07/03/18 Unknown Rx amLODIPine [Norvasc] 10 mg PO QDAY #30 tablet 07/03/18 Unknown Rx Active Meds: Active Medications Acetaminophen (Tylenol) 500 mg PO Q6H PRN PRN Reason: Pain, Mild (1-3) Acetaminophen/Hydrocodone Bitart ([place] 10/325) 1 each PO Q4H PRN PRN Reason: Pain , Severe (7-10) Acetaminophen/Hydrocodone Bitart ([place] 5/325) 1 each PO Q4H PRN PRN Reason: Pain, Moderate (4-6) Amlodipine Besylate (Norvasc) 10 mg PO QDAY SERGEY Dextrose (D50w (25gm) Syringe) 50 ml IV PRN PRN PRN Reason: Hypoglycemia Enoxaparin Sodium (Lovenox) 40 mg SUB-Q QDAY SERGEY Gabapentin (Neurontin) 600 mg PO TID SERGEY Hydralazine HCl (Apresoline) 10 mg PO Q8HR PRN PRN Reason: Hypertension Insulin Glargine (Lantus) 10 units SUB-Q QHS SERGEY Insulin Human Regular (Humulin R) 0 units SUB-Q ACHS SERGEY; Protocol Metoprolol Tartrate (Lopressor) 25 mg PO BID SERGEY Review of Systems All systems: negative (12 systems reviewed and negative unless noted otherwise) Constitutional: fatigue, weakness Cardiovascular: high blood pressure, no chest pain, no edema Respiratory: no cough Gastrointestinal: vomiting, no diarrhea, no constipation Genitourinary Male: no dysuria, no incontinence Musculoskeletal: leg numbness/tingling, prior amputations Integumentary: sores, wounds, no rash, no pruritis Neurological: gait dysfunction Psychiatric: no insomnia Endocrine: high blood sugars Exam - Exam Narrative exam: MUSCULOSKELETAL SPECIALTY EXAM CONSTITUTIONAL: Well developed, well nourished, appropriately groomed LYMPHATIC: No appreciable abnormalities palpable in neck EENT: Visual roque full to confrontation. EOMI. Oropharynx clear, poor dentition he aring intact to soft voice RESPIRATORY: Clear to ascultation bilaterally, no increased work of breathing CARDIOVASCULAR: Regular Rate/ Rhythm, no swelling, edema or tenderness in BUE or BLE. Pulses palpable in all extremities. All extremities warm. GI: + bowel sounds, soft, NTTP, nondistended. INTEGUMENTARY: Normal, no lesion, rash, masses or bruising noted in extremities except for left lower extremity lesions and RLE surgical site MUSCULOSKELETAL: BUE normal without defect, crepitus, subluxation, effusion, arthritic changes or TTP. BLE with bilateral BKA, right in stump protector BUE 4+/5, good ROM, with normal tone. BLE 4/5 good ROM, with normal tone NEURO: CN 2-12 grossly intact. Sensation intact in all extremities. Reflexes 2+ bilaterally at biceps, brachioradialis. Coordination intact in BUE. No tremor noted in 4 extremities. POSTURE and GAIT: Sitting posture good. Balance appears reasonable. Unable to ambulate currently due to bilateral BKA, has prosthesis for left but multiple sores. PSYCH: Alert, orientated x3, affect appears normal. Insight appears intact. - Labs CBC & Chem 7: 07/04/18 07:26 07/04/18 07:26 Assessment and Plan Assessment and plan: Patient was assessed and evaluated for Acute Inpatient Rehab Unit. Due to the patients above-mentioned medical complexity, along with decreased functional mobility and self care, this patient continues to require and be a ppropriate for a comprehensive, multidisciplinary [id number] rehabilitation program. These needs cannot be met in an outpatient or other less intensive setting. The patient would continue to benefit from skilled therapy intervention for at least 3 hours per day, five days a week, with techni ques specific to the needs of the patient to improve function, activities of daily living, and reintegration into the community. The patient continues to require: -- OT to improve ROM, self-care, and learn use of adaptive equipment -- PT to improve strength and balance, functional transfers, and ambulation with energy conservation techniques to improve functional mobility -- CENTRIFUGE SEPARATOR TENDER to address cognitive deficits and swallowing ability -- 24 hour RN to ensure and prevent skin breakdown, promote progressive independence while ensuring safety, ensure education regarding medications, and incorporation of the rehabilitation at the bedside -- 24 hour Mixing Picker Tender to coordinate this interdisciplinary program, and to manage/prevent complications as a result of the patients medical comorbidities. -Plan of care by day 4 -Weekly team conferences With such a program, there is a reasonable certainty that the goals individualized for this patient can be achieved within the specified length of stay. Z47.81 R BKA: Continue PT/OT to improve ability to transfer. Will attempt to get him fitted for prosthesis if time permits. Monitor surgical site. Maintain ROM. Stump protector. I10 Hypertension: continue medications and adjust as needed. Has been elevated on acute side - PRN ordered E11.9 Diabetes: Carb controlled diet, mangaed Blood GLU levels and adjust insulin as needed., will order A1c D62 ABLA: monitor, will check labs and replace as needed. Transfusion if <7. D72.829 Leukocytosi: afebrile. Does not appear septic. Monitor wounds and vitals. Start on Abx if signs point towards infectious cause. Z73.6 ADL dysfunction: OT will work on improving ability to perform ADLs (including assistive devices) to increase independence and decrease caregiver burden and improve functional transfers and mobility training. R26.2 Difficulty walking: PT will work on gait training if we can clear LLE wounds for prsthesis use and advance as appropriate to use of stairs and outside ambulation on uneven surfaces. Will see about being fitted for RLE prothesis. R26.89 Abnormality of gait: PT will work to improve safety and efficiency of gait through neuromotor training and gait training along with instruction on proper use of prosthesis if we can get them in time. M62.81 Muscle weakness: PT & OT will work on strengthening exercises to improve functional strength including mixture of closed and open kinetic chain exercises. R53.81 Debility: PT & OT will work on improving overall functional status to improve participation with ADLs, mobility and social involvement. R53.83 Fatigue: PT & OT will work on improving endurance through aerobic exercises and therapeutic activity while monitoring patients tolerance for activity and vital signs as needed. DVT ppx: Lovenox Pain: Continue physical modalities in therapy and pain medications as needed to achieve functional pain control. Sleep: Monitor and address as needed. Bowel: Monitor and address as needed. Appetite: Monitor and address as needed. Discharge planning: Pending therapy progress and care plan meeting. Will continue discussion with therapy team, SW, patient and family. Restrictions/ Precautions: Falls WB status: NWB until prostheses are available and able to wear Functional Hx: ADLs: Independent Cognition: Independent Mobility: No AD Barriers to Discharge: Decreased mobility and ability to perform self care, balance deficits, weakness Estimated Length of Stay: 14 days Discharge Destination: Home with family POST ADMISSION PHYSICIAN EVALUATION I have examined the patient and find that functional status, medical condition and appropriateness for IRF admission are essentially unchanged from those described in the preadmission screening. Will monitor for worsening wounds or infection of surgical site, DVT/PE, bowel and bladder complications and complications due to hypertension, diabetes, anemia and electrolyte abnormalities. Will attempt to avoid occurrence of these issues or treat them if they present themselves.
[2018-07-03] MEDS: NORCO 10/325 PO PRN (21:39)
[2018-07-03] MEDS: LOPRESSOR PO SCH (21:40)
[2018-07-03] MEDS: NEURONTIN PO SCH (21:40)
[2018-07-03] MEDS: LANTUS SUB-Q SCH (22:39)
[2018-07-03] MEDS: HumuLIN R SUB-Q SCH ×2 (22:40)
[2018-07-04] MEDS: NORCO 10/325 PO PRN ×4 (03:16→17:27)
[2018-07-04] MEDS: HumuLIN R SUB-Q SCH ×4 (07:30→23:17)
[2018-07-04 07:41] LABS: Basophils % (Auto) 0.3 % (0.0-1.8); Eosinophils # (Auto) 0.2 K/mm3 (0.0-0.4); Eosinophils % (Auto) 1.8 % (0.0-4.3); Hematocrit 26.7 % (35.5-45.6); Hemoglobin 8.2 gm/dl (11.8-15.2); Lymphocytes # (Auto) 1.9 K/mm3 (1.2-5.4); Lymphocytes % (Auto) 14.7 % (13.4-35.0); Mean Corpuscular HGB Conc 31 % (32-34); Mean Corpuscular Volume 78 fl (84-94); Monocytes # (Auto) 1.3 K/mm3 (0.0-0.8); Monocytes % (Auto) 10.1 % (0.0-7.3); Platelet Count 593 K/mm3 (140-440); Red Blood Count 3.42 M/mm3 (3.65-5.03); Red Cell Distribution Width 18.6 % (13.2-15.2)
[2018-07-04 08:06] LABS: Alanine Aminotransferase 19 units/L (7-56); Albumin 2.8 g/dL (3.9-5); BUN/Creatinine Ratio 21; Blood Urea Nitrogen 21 mg/dL (9-20); Calcium 8.8 mg/dL (8.4-10.2); Hemolysis Index 5
[2018-07-04] MEDS: NEURONTIN PO SCH ×3 (09:19→20:00)
[2018-07-04] MEDS: LOVENOX SUB-Q SCH (09:19)
[2018-07-04] MEDS: NORVASC PO SCH (09:20)
[2018-07-04] MEDS: LOPRESSOR PO SCH ×2 (09:20→22:01)
--- NOTE | 2018-07-04 11:50 | Progress Note ---
Subjective Date of service: 07/04/18 Principal diagnosis: R BKA Interval history: 47-year-old male with a left BKA who stated he been doing a lot of walking recently. He noticed his right toe had turned hard and black and sought assistance at the ER. 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 He underwent a guillotine procedure for for his right leg until it could be completed several days later. He underwent antibiotic treatment. His blood sugars were also difficult to control with frequent elevations into the 300 area. Do not see a recent A1c available in the system. He was previously independent. We will work with him to return to a level of independence and if time allows try to have him fitted for his right prosthesis with Mechanical Applications Engineer prosthetics. Wounds on the left stump will need to heal prior to being L use his left prosthesis again. Patient had some nausea and vomiting accompanied by a low blood sugar prior to being transferred to the rehabilitation unit which delayed his coming over. Per the patient and the nu rse seems like it may have been food related and he feels better now. Patient noted to have normal WBC on June 27 however all white count prior to that were elevated up to 37.7 at the high. WBC on 07/02 was 13.1, he has completed antibiotics we will monitor this for any continued elevation are signs of infectious process. Hemoglobin upon presentation and was 9.5 on June 23, and has slowly decreased to 8.8. We'll continue to monitor. Patient is participating in therapy and making reasonable progress. Taking rest breaks as needed. +BM. Denies palpitations, dyspnea, cough, N/V, weakness, or joint pain. Discussed his blood glucose control which he says is poorly controlled at home. Did find out that he is a type 1 diabetic type 2 which was listed in the system. Pain is somewhat controlled with current medications however does sound like he can use short course of something for breakthrough. We'll monitor his leukocytosis as it is elevated again today. Still does not have fever, does not appear septic. Anemia workup ordered, likely combination of acute blood loss and chronic disease. Elevated alkaline phosphatase noted, no pain noted in area of gallbladder, likely related to amputation and chronic disease. Will monitor. All records, vitals, labs and medications were reviewed. No other issues per patient, nursing or therapy. Objective - Exam Narrative Exam: MUSCULOSKELETAL SPECIALTY EXAM CONSTITUTIONAL: Well developed, well nourished, appropriately groomed LYMPHATIC: No appreciable abnormalities palpable in neck EENT: Visual roque full to confrontation. EOMI. Oropharynx clear, poor dentition hearing intact to soft voice RESPIRATORY: Clear to ascultation bilaterally, no increased work of breathing CARDIOVASCULAR: Regular Rate/ Rhythm, no swelling, edema or tenderness in BUE or BLE. Pulses palpable in all extremities. All extremities warm. GI: + bowel sounds, soft, NTTP, nondistended. INTEGUMENTARY: Normal, no lesion, rash, masses or bruising noted in extremities except for left lower extremity lesions and RLE surgical site MUSCULOSKELETAL: BUE normal without defect, crepitus, subluxation, effusion, arthritic changes or TTP. BLE with bilateral BKA, right in stump protector BUE 4+/5, good ROM, with normal tone. BLE 4/5 good ROM, with normal tone NEURO: CN 2-12 grossly intact. Sensation intact in all extremities. Reflexes 2+ bilaterally at biceps, brachioradialis. Coordination intact in BUE. No tremor noted in 4 extremities. POSTURE and GAIT: Sitting posture good. Balance appears reasonable. Unable to ambulate currently due to bilateral BKA, has prosthesis for left but multiple sores. PSYCH: Alert, orientated x3, affect appears normal. Insight appears intact. - Constitutional Vitals: Vital Signs - 12hr 07/04/18 07/04/18 07/04/18 03:16 05:12 07:30 Temperature 37.0 C 37.1 C Pulse Rate 83 84 Respiratory 18 20 18 Rate Blood Pressure 127/79 Blood Pressure 147/86 [Right] O2 Sat by Pulse 92 99 Oximetry 07/04/18 07/04/18 09:19 09:20 Temperature Pulse Rate 84 Respiratory 20 Rate Blood Pressure 147/86 Blood Pressure [Right] O2 Sat by Pulse Oximetry - Allied health notes FIMS assessment as documented by PT/OT/ST: Social interaction/Memory/Problem solving Social Interaction FIM Score 7. Complete [place] (Interacts appropriately. Controls temper.) Memory FIM Score 5. Supervision (Needs cueing <10%, stressful/ unfamiliar situations.) Problem Solving FIM Score 5. Supervision (Needs cueing <10% to solve routine problems.) Transfers Mode of Locomotion: Wheelchair Bed/Chair/Wheelchair Transfers 4. Minimal Assistance (Patient = 75% or more. FIM Score Needs touching.) Locomotion- Stairs Stairs FIM Score 0. Activity does not occur Locomotion- walk/wheelchair Most Frequent Mode of Walking Locomotion: Walking FIM Score 0. Activity does not occur Wheelchair Propulsion Distance 500 Wheelchair FIM Score 4. Minimal Assistance (Patient = 75% or more. Minimum of 150 ft.) Eating Eating Device Adjusted Table Height Eating FIM Score 7. Complete [place] (Cuts meat, opens containers, regular diet.) - Labs CBC & Chem 7: 07/04/18 07:26 07/04/18 07:26 Labs: Laboratory Results - last 72 hr 07/04/18 07/04/18 07/04/18 07:26 07:26 07:47 WBC 12.8 H RBC 3.42 L Hgb 8.2 L Hct 26.7 L MCV 78 L MCH 24 L MCHC 31 L RDW 18.6 H Plt Count 593 H Lymph % (Auto) 14.7 [place] % (Auto) 10.1 H Eos % (Auto) 1.8 Baso % (Auto) 0.3 Lymph # 1.9 [place] # 1.3 H Eos # 0.2 Baso # 0.0 Seg Neutrophils % 73.1 H Seg Neutrophils # 9.4 H Sodium 139 Potassium 4.3 Chloride 97.1 L Carbon Dioxide 29 Anion Gap 17 BUN 21 H Creatinine 1.0 Estimated GFR > 60 BUN/Creatinine Ratio 21 Glucose 145 H POC Glucose 150 H Calcium 8.8 Total Bilirubin < 0.20 AST 33 ALT 19 Alkaline Phosphatase 171 H Total Protein 7.5 Albumin 2.8 L Albumin/Globulin Ratio 0.6 Assessment and Plan Z47.81 R BKA: Continue PT/OT to improve ability to transfer. Will attempt to get him fitted for prosthesis if time permits. Monitor surgical site. Maintain ROM. Stump protector. I10 Hypertension: continue medications and adjust as needed. Has been elevated on acute side - PRN ordered E10.65 Type 1 Diabetes: Carb controlled diet, manage Blood GLU levels and adjust insulin as needed., will order A1c. Discussed in detail with patient, he is Type 1 - listed as type 2 in system. D62 ABLA: monitor, will check labs and replace as needed. Transfusion if <7. D72.829 Leukocytosis: afebrile. Does not appear septic. Monitor wounds and vitals. Start on Abx if signs point towards infectious cause. Z73.6 ADL dysfunction: OT will work on improving ability to perform ADLs (including assistive devices) to increase independence and decrease caregiver burden and improve functional transfers and mobility training. R26.2 Difficulty walking: PT will work on gait training if we can clear LLE wounds for prsthesis use and advance as appropriate to use of stairs and outside ambulation on uneven surfaces. Will see about being fitted for RLE prothesis. R26.89 Abnormality of gait: PT will work to improve safety and efficiency of gait through neuromotor training and gait training along with instruction on proper use of prosthesis if we can get them in time. M62.81 Muscle weakness: PT & OT will work on strengthening exercises to improve functional strength including mixture of closed and open kinetic chain exercises. R53.81 Debility: PT & OT will work on improving overall functional status to improve participation with ADLs, mobility and social involvement. R53.83 Fatigue: PT & OT will work on improving endurance through aerobic exercises and therapeutic activity while monitoring patients tolerance for activity and vital signs as needed. Albumin level is decreased and patient does mention what he believes was sore between 15 and 30 pounds lost. We'll check further workup on malnutrition and start supplementation. As a type 1 diabetic and does have a risk for malnutrition DVT ppx: Lovenox Pain: Continue physical modalities in therapy and pain medications as needed to achieve functional pain control. Sleep: Monitor and address as needed. Bowel: Monitor and address as needed. Appetite: Monitor and address as needed. Discharge planning: Pending therapy progress and care plan meeting. Will continue discussion with therapy team, SW, patient and family. Restrictions/ Precautions: Falls WB status: NWB until prostheses are available and able to wear Functional Hx: ADLs: Independent Cognition: Independent Mobility: No AD Barriers to Discharge: Decreased mobility and ability to perform self care, bal ance deficits, weakness Estimated Length of Stay: 14 days Discharge Destination: Home with family
[2018-07-04] MEDS: LANTUS SUB-Q SCH (21:00)
[2018-07-04] MEDS: ROXICODONE PO PRN (22:02)
[2018-07-05] MEDS: NORCO 5/325 PO PRN (04:40)
[2018-07-05 07:39] LABS: Basophils # (Auto) 0.1 K/mm3 (0.0-0.1); Basophils % (Auto) 0.6 % (0.0-1.8); Eosinophils # (Auto) 0.2 K/mm3 (0.0-0.4); Eosinophils % (Auto) 1.6 % (0.0-4.3); Hematocrit 25.9 % (35.5-45.6); Lymphocytes # (Auto) 1.6 K/mm3 (1.2-5.4); Lymphocytes % (Auto) 14.2 % (13.4-35.0); Mean Corpuscular HGB Conc 31 % (32-34); Mean Corpuscular Volume 78 fl (84-94); Monocytes # (Auto) 1.1 K/mm3 (0.0-0.8); Monocytes % (Auto) 10.2 % (0.0-7.3); Platelet Count 619 K/mm3 (140-440); Red Blood Count 3.31 M/mm3 (3.65-5.03); Red Cell Distribution Width 18.9 % (13.2-15.2)
[2018-07-05 08:03] LABS: Chol/HDL Ratio 4.5 %; Prealbumin 0.139 g/L (0.200-0.400)
--- NOTE | 2018-07-05 08:42 | Progress Note ---
Subjective Date of service: 07/05/18 Principal diagnosis: R BKA Interval history: 47-year-old male with a left BKA who stated he been doing a lot of walking recently. He noticed his right toe had turned hard and black and sought assistance at the ER. 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 He underwent a guillotine procedure for for his right leg until it could be completed several days later. He underwent antibiotic treatment. His blood sugars were also difficult to control with frequent elevations into the 300 area. Do not see a recent A1c available in the system. He was previously independent. We will work with him to return to a level of independence and if time allows try to have him fitted for his right prosthesis with [employer] prost[employer]. Wounds on the left stump will need to heal prior to being L use his left prosthesis again. Patient had some nausea and vomiting accompanied by a low blood sugar prior to being transferred to the rehabilitation unit which delayed his coming over. Per the patient and the nu rse seems like it may have been food related and he feels better now. Patient noted to have normal WBC on June 27 however all white count prior to that were elevated up to 37.7 at the high. WBC on 07/02 was 13.1, he has completed antibiotics we will monitor this for any continued elevation are signs of infectious process. Hemoglobin upon presentation and was 9.5 on June 23, and has slowly decreased to 8.8. We'll continue to monitor. Patient is participating in therapy and making reasonable progress. Taking rest breaks as needed. +BM. Denies palpitations, dyspnea, cough, N/V, weakness, or joint pain. Hemoglobin A1c elevated at 11.4, we'll modify insulin regimen, discussed with patient. Pain is better controlled with addition of breakthrough medication. Leukocytosis has decreased slightly. Still does not have fever, does not appear septic. Decrease components for hemoglobin synthesis, will replace. Albumin and prealbumin both low, will supplement with protein. All records, vitals, labs and medications were reviewed. No other issues per patient, nursing or therapy. Objective - Exam Narrative Exam: MUSCULOSKELETAL SPECIALTY EXAM CONSTITUTIONAL: Well developed, appropriately groomed EENT: EOMI. poor dentition, dentures at home, hearing intact to soft voice RESPIRATORY: Clear to ascultation bilaterally, no increased work of breathing CARDIOVASCULAR: Regular Rate/ Rhythm, no swelling, edema or tenderness in BUE or BLE. All extremities warm. GI: + bowel sounds, soft, NTTP, nondistended. INTEGUMENTARY: Normal, no lesion, rash, masses or bruising noted in extremities except for left lower extremity lesions and RLE surgical site MUSCULOSKELETAL: BUE normal without defect, crepitus, subluxation, effusion, arthritic changes or TTP. BLE with bilateral BKA, right in stump protector BUE 4+/5, good ROM, with normal tone. BLE 4/5 good ROM, with normal tone NEURO: CN 2-12 grossly intact. Sensation intact in all extremities. No tremor noted in 4 extremities. POSTURE and GAIT: Sitting posture good. Balance appears reasonable. Unable to ambulate currently due to bilateral BKA, has prosthesis for left but multiple sores. PSYCH: Alert, orientated x3, affect appears normal. Insight appears intact. - Constitutional Vitals: Vital Signs - 12hr 07/04/18 07/04/18 07/05/18 22:01 22:02 04:20 Temperature 36.9 C Pulse Rate 91 H 84 Respiratory 20 20 Rate Blood Pressure 135/76 135/84 O2 Sat by Pulse 99 Oximetry 07/05/18 07/05/18 04:40 08:34 Temperature Pulse Rate 93 H Respiratory 20 Rate Blood Pressure 146/83 O2 Sat by Pulse 98 Oximetry - Allied health notes Allied health notes reviewed: nursing, PT, OT FIMS assessment as documented by PT/OT/ST: Grooming Patient cleans teeth/dentures: Yes Patient osei/brushes hair: Yes Patient washes, rinses and Yes dries face: Patient washes, rinses and Yes dries hands: Patient shaves: No Patient performs (no make-up/ 08/21 (100%) shaving): Grooming FIM Score 5. Supervision ([place] applies toothpaste or opens containers.) Toileting Toileting Device Commode over Toilet Patient able to: Adjust clothes before,Clean self,Adjust clothes after Patient able to perform: 3/3 (100%) Toileting FIM Score 4. Minimal Assistance (Patient = 75% or more. Needs touching.) Social interaction/Memory/Problem solving Social Interaction FIM Score 7. Complete [place] (Interacts appropriately. Controls temper.) Memory FIM Score 5. Supervision (Needs cueing <10%, stressful/ unfamiliar situations.) Problem Solving FIM Score 5. Supervision (Needs cueing <10% to solve routine problems.) Transfers Mode of Locomotion: Wheelchair Bed/Chair/Wheelchair Transfers 4. Minimal Assistance (Patient = 75% or more. FIM Score Needs touching.) Toilet Transfers FIM Score 4. Minimal Assistance (Patient = 75% or more. Needs touching.) Patient transferred to: Shower Shower Transfers FIM Score 4. Minimal Assistance (Patient = 75% or more. Needs touching.) Locomotion- Stairs Stairs FIM Score 0. Activity does not occur Locomotion- walk/wheelchair Most Frequent Mode of Walking Locomotion: Walking FIM Score 0. Activity does not occur Wheelchair Propulsion Distance 500 Wheelchair FIM Score 4. Minimal Assistance (Patient = 75% or more. Minimum of 150 ft.) Eating Eating Device Adjusted Table Height Eating FIM Score 7. Complete [place] (Cuts meat, opens containers, regular diet.) Dressing-Upper body Patient retrieves clothing No items: Patient applies/removes UE n/a prosthesis or orthosis: Upper Body Dressing FIM Score 5. Supv./Set-Up ([place] sets out clothes or applies pros./orth.) Dressing-lower body Patient retrieves clothing No items: Patient applies/removes LE Yes prosthesis or orthosis: Lower Body Dressing FIM Score 5. Supv./Set-Up ([place] sets out clothes or applies pros./orth.) - Labs CBC & Chem 7: 07/05/18 06:44 07/04/18 07:26 Labs: Laboratory Results - last 72 hr 07/04/18 07/04/18 07/04/18 07:26 07:26 07:47 WBC 12.8 H RBC 3.42 L Hgb 8.2 L Hct 26.7 L MCV 78 L MCH 24 L MCHC 31 L RDW 18.6 H Plt Count 593 H Lymph % (Auto) 14.7 [place] % (Auto) 10.1 H Eos % (Auto) 1.8 Baso % (Auto) 0.3 Lymph # 1.9 [place] # 1.3 H Eos # 0.2 Baso # 0.0 Seg Neutrophils % 73.1 H Seg Neutrophils # 9.4 H Sodium 139 Potassium 4.3 Chloride 97.1 L Carbon Dioxide 29 Anion Gap 17 BUN 21 H Creatinine 1.0 Estimated GFR > 60 BUN/Creatinine Ratio 21 Glucose 145 H POC Glucose 150 H Hemoglobin A1c Calcium 8.8 Iron TIBC Transferrin Total Bilirubin < 0.20 AST 33 ALT 19 Alkaline Phosphatase 171 H Total Protein 7.5 Albumin 2.8 L Albumin/Globulin Ratio 0.6 Prealbumin Triglycerides Cholesterol LDL Cholesterol Direct HDL Cholesterol Cholesterol/HDL Ratio Vitamin B12 Folate 07/04/18 07/04/18 07/04/18 11:46 17:03 21:02 WBC RBC Hgb Hct MCV MCH MCHC RDW Plt Count Lymph % (Auto) [place] % (Auto) Eos % (Auto) Baso % (Auto) Lymph # [place] # Eos # Baso # Seg Neutrophils % Seg Neutrophils # Sodium Potassium Chloride Carbon Dioxide Anion Gap BUN Creatinine Estimated GFR BUN/Creatinine Ratio Glucose POC Glucose 293 H 266 H 301 H Hemoglobin A1c Calcium Iron TIBC Transferrin Total Bilirubin AST ALT Alkaline Phosphatase Total Protein Albumin Albumin/Globulin Ratio Prealbumin Triglycerides Cholesterol LDL Cholesterol Direct HDL Cholesterol Cholesterol/HDL Ratio Vitamin B12 Folate 07/05/18 07/05/18 07/05/18 06:44 06:44 06:44 WBC 11.3 H RBC 3.31 L Hgb 8.0 L Hct 25.9 L MCV 78 L MCH 24 L MCHC 31 L RDW 18.9 H Plt Count 619 H Lymph % (Auto) 14.2 [place] % (Auto) 10.2 H Eos % (Auto) 1.6 Baso % (Auto) 0.6 Lymph # 1.6 [place] # 1.1 H Eos # 0.2 Baso # 0.1 Seg Neutrophils % 73.4 H Seg Neutrophils # 8.3 H Sodium Potassium Chloride Carbon Dioxide Anion Gap BUN Creatinine Estimated GFR BUN/Creatinine Ratio Glucose POC Glucose Hemoglobin A1c 11.4 H Calcium Iron 21 L TIBC 270 Transferrin 225 Total Bilirubin AST ALT Alkaline Phosphatase Total Protein Albumin Albumin/Globulin Ratio Prealbumin 0.139 L Triglycerides 120 Cholesterol 153 LDL Cholesterol Direct 98 HDL Cholesterol 34 L Cholesterol/HDL Ratio 4.50 Vitamin B12 Folate 07/05/18 07/05/18 07/05/18 06:44 06:44 07:54 WBC RBC Hgb Hct MCV MCH MCHC RDW Plt Count Lymph % (Auto) [place] % (Auto) Eos % (Auto) Baso % (Auto) Lymph # [place] # Eos # Baso # Seg Neutrophils % Seg Neutrophils # Sodium Potassium Chloride Carbon Dioxide Anion Gap BUN Creatinine Estimated GFR BUN/Creatinine Ratio Glucose POC Glucose 160 H Hemoglobin A1c Calcium Iron TIBC Transferrin Total Bilirubin AST ALT Alkaline Phosphatase Total Protein Albumin Albumin/Globulin Ratio Prealbumin Triglycerides Cholesterol LDL Cholesterol Direct HDL Cholesterol Cholesterol/HDL Ratio Vitamin B12 150.0 L Folate 15.84 Assessment and Plan Z47.81 R BKA: Continue PT/OT to improve ability to transfer. Will attempt to get him fitted for prosthesis if time permits. Monitor surgical site. Maintain ROM. Stump protector. I10 Hypertension: continue medications and adjust as needed. Has been elevated on acute side - PRN ordered E10.65 Type 1 Diabetes: Carb controlled diet, manage Blood GLU levels and adjust insulin as needed., A1c 11.4. D62 ABLA, D50.9 Fe Def Anemia, D51.9: Mixed picture, replace iron and B12. monitor. Transfusion if <7. E46 Protein malnutrition: Supplements ordered, discussed with patient. D72.829 Leukocytosis: improving. afebrile. Does not appear septic. Monitor wounds and vitals. Start on Abx if signs point towards infectious cause. Z73.6 ADL dysfunction: OT will work on improving ability to perform ADLs (including assistive devices) to increase independence and decrease caregiver burden and improve functional transfers and mobility training. R26.2 Difficulty walking: PT will work on gait training if we can clear LLE wounds for prsthesis use and advance as appropriate to use of stairs and outside ambulation on uneven surfaces. Will see about being fitted for RLE prothesis. R26.89 Abnormality of gait: PT will work to improve safety and efficiency of gait through neuromotor training and gait training along with instruction on proper use of prosthesis if we can get them in time. M62.81 Muscle weakness: PT & OT will work on strengthening exercises to improve functional strength including mixture of closed and open kinetic chain exercises. R53.81 Debility: PT & OT will work on improving overall functional status to improve participation with ADLs, mobility and social involvement. R53.83 Fatigue: PT & OT will work on improving endurance through aerobic exercises and therapeutic activity while monitoring patients tolerance for activity and vital signs as needed. G54.7 Phantom sensation: +/- pain but not severe. Continue gabapentin, desensitization. DVT ppx: Lovenox Pain: Continue physical modalities in therapy and pain medications as needed to achieve functional pain control. Sleep: Monitor and address as needed. Bowel: Monitor and address as needed. Appetite: Monitor and address as needed. Discharge planning: Pending therapy progress and care plan meeting. Will continue discussion with therapy team, SW, patient and family. Restrictions/ Precautions: Falls WB status: NWB until prostheses are available and able to wear Functional Hx: ADLs: Independent Cognition: Independent Mobility: No AD Barriers to Discharge: Decreased mobility and ability to perform self care, balance deficits, weakness Estimated Length of Stay: 14 days Discharge Destination: Home with family
[2018-07-05] MEDS: NEURONTIN PO SCH ×3 (09:05→19:28)
[2018-07-05] MEDS: LOPRESSOR PO SCH ×2 (09:05→21:45)
[2018-07-05] MEDS: LOVENOX SUB-Q SCH (09:06)
[2018-07-05] MEDS: NORVASC PO SCH (09:06)
[2018-07-05] MEDS: HumuLIN R SUB-Q SCH ×4 (09:07→21:46)
[2018-07-05] MEDS: NORCO 10/325 PO PRN ×2 (09:11→17:28)
--- NOTE | 2018-07-05 09:17 | IRU Plan of Care ---
Interdisciplinary Plan of Care - IP IRU INTERDISCIPLINARY PLAN: [facility] Inpatient Rehab Unit Plan of Care IRU Interdisciplinary Care Plan Start: 07/03/18 19:45 Freq: Admission then PRN Status: Active Protocol: Document 07/04/18 16:31 TH (Rec: 07/04/18 16:40 TH [id number]) Interdisciplinary Problem List Interdisciplinary Problem List Interdisciplinary Problem List Impaired Bathing/Grooming Query Text:Answers will Trigger Problems Impaired Dressing and Outcomes on Worklist. Impaired Mobility Impaired Transfers Impaired Bladder/Bowel Management Impaired Toileting Impaired Problem Solving Impaired Memory Pain Management Impaired Skin/Tissue Integrity Impaired Home Management Impaired Safety Medications Education Diabetes Education IRU Interdisciplinary Care Plan Therapy Services Therapy Services Will Include: Physical Therapy Query Text:Patient will be seen for a Occupational Therapy minimum of 3 hours of daily therapy 5 out of 7 days a week. Therapy intensity may be adjusted within a 7 consecutive day period to effectively serve the individual needs of the patient. Treatment Frequency/Intensity/Duration Treatment Frequency 5 days/week Treatment Intensity 3 hours per day Treatment Duration 10-14 days Problem Area: Eating/Swallowing Eating/Swallowing Outcomes Eating/Swallowing Interventions Problem Area: Bathing/Grooming Bathing/Grooming Outcomes Improve [place] w/ Grooming Improve [place] w/ Bathing Bathing/Grooming Interventions ADL Training Use of Assistive Devices Therapeutic Exercise Therapeutic Activity Neuromuscular Re-Education Balance Work Activity Tolerance Work Patient/Caregiver Education Problem Area: Dressing Dressing Outcomes Improve [place] w/ UB Dressing Improve [place] w/ LB Dressing Dressing Interventions ADL Training Use of Assistive Devices Neuromuscular Re-Education Therapeutic Exercise Balance Work Modalities Patient/Caregiver Education Problem Area: Mobility Mobility Outcomes Improve [place] w/ Bed Mobility Improve [place] w/ Wheelchair Mobility Interventions Therapeutic Exercise Neuromuscular Re-Ed. Activity Tolerance Work Patient/Caregiver Education Bed Mobility Work W/C Mobility Work Problem Area: Transfers Transfers Outcomes Improve [place] w/ Bed Transfers Improve [place] w/ Toilet Transfers Improve [place] w/ Tub/ Shower Transfers Improve [place] w/ Car Transfers Transfers Interventions Transfer Training Therapeutic Exercise Neuromuscular Re-Education Visual/Perceptual Training Activity Tolerance Work Use of Assistive Devices Patient/Caregiver Education Problem Area: Bowel/Bladder Managment Bowel/Bladder Outcomes Bowel/Bladder Interventions Problem Area: Toileting Toileting Outcomes Improve [place] w/ Toileting Toileting Interventions ADL Training Balance Work Use of Assistive Devices Patient/Caregiver Education Problem Area: Nutrition Nutrition Outcomes Nutrition Interventions Problem Area: Comprehension Comprehension Outcomes Comprehension Interventions Problem Area: Expression Expression Outcomes Expression Interventions Problem Area: Problem Solving Problem Solving Outcomes Problem Solving Interventions Problem Area: Memory Memory Outcomes Memory Interventions Problem Area: Pain Management Pain Management Outcomes Demonstrate/Verbalize Pain Strategies Pain Management Interventions Medication Management Positioning/Turning Patient/Caregiver Education Problem Area: Knowledge Deficits Knowledge Deficits Outcomes Demonstrate Ability to Manage Blood Glucose Knowledge Deficits Interventions Disease/Injury/Sx. Intervention Education Medication Use Education Safety Education Problem Area: Skin/Tissue Integrity Skin/Tissue Integrity Outcomes Exhibit Healing of Wound/ Incision Demonstrate Understanding of Pressure Relief Skin/Tissue Integrity Interventions Skin/Wound Care Pressure Relief Instruction Positioning/Turning Problem Area: Social Interaction Social Interaction Outcomes Social Interaction Interventions Problem Area: Adjustment to Disability Adjustment to Disability Outcomes Adjustment to Disability Interventions Problem Area: Discharge Concerns Discharge Concerns Outcomes Discharge w/ Necessary Equipment Have Home Health/Outpatient Services Discharge Concerns Interventions Discharge Planning Family/Caregiver Conference Family/Caregiver Training Problem Area: Community Reintegration Community Reintegration Outcomes Community Reintegration Interventions Problem Area: Home Management Home Management Outcomes Improve [place] w/ Home Management Home Management Interventions Clothing Care Activity Tolerance Work Patient/Caregiver Education Problem Area: Safety Safety Outcomes Provide Safe Environment Perform Selfcare Safely Demonstrate Good Safety w/ Transfers/Mobility Safety Interventions Identify Fall Risk [place] Pt. to Environment Reduce Environmental Hazards Problem Area: Medication Education Medication Education Outcomes Patient/Caregiver will Verbalize Understanding of Medications Medication Education Interventions Explain Administration/Side Effects/Interactions Problem Area: Diabetes Education Diabetes Education Outcomes Demonstrate Knowledge of Resources Availlable in Diabetic Ed. Folder Diabetes Education Interventions Give Pt. Diabetes Education Folder Problem Area: Oxygenation Oxygenation Outcomes Oxygenation Interventions Problem Area: Cardiovascular Cardiovascular Outcomes Cardiovascular Interventions Physician Only Medical Prognosis and Rehabilitation Potential (Completed by Physician) Good rehab potential, fair prognosis. Patient has poor control of blood glucose and is a Type 1 diabetic. Has wounds from prosthesis that he didn't recognize as an issue until coming to ER due to gangrene. Attempting to educate on what to look for and be concerned about. Nutrition consult ordered for diabetic diet teaching. Supplements added for protein deficiency. Discussed increased energy requirement for utilization of 2 BKA prostheses. This plan of care has been developed based on the findings from the pre- admission assessment, post admission physician evaluation, information gathered from the assessments from all therapy disciplines and other pertinent clinicians. The plan of care has been reviewed and discussed in collaboration with the interdisciplinary team. The plan of care will be reviewed and updated at least weekly.
[2018-07-05] MEDS ORDERED: VITAMIN B-12 SUB-Q ONE (11:00)
[2018-07-05] MEDS: ROXICODONE PO PRN (13:51)
[2018-07-05] MEDS: VITAMIN C PO SCH (17:24)
[2018-07-05] MEDS: FEOSOL PO SCH (17:24)
[2018-07-05] MEDS: LANTUS SUB-Q SCH (22:48)
[2018-07-06] MEDS: NORCO 10/325 PO PRN ×5 (05:22→21:32)
[2018-07-06] MEDS: FEOSOL PO SCH ×2 (08:08→17:24)
[2018-07-06] MEDS: NEURONTIN PO SCH ×3 (08:08→21:32)
[2018-07-06] MEDS: NORVASC PO SCH (08:08)
[2018-07-06] MEDS: VITAMIN C PO SCH ×2 (08:08→17:24)
[2018-07-06] MEDS: LOPRESSOR PO SCH ×2 (08:08→21:33)
[2018-07-06] MEDS: HumuLIN R SUB-Q SCH ×4 (08:15→23:25)
[2018-07-06] MEDS: LOVENOX SUB-Q SCH (08:17)
[2018-07-06] MEDS: ROXICODONE PO PRN (15:45)
[2018-07-06] MEDS: LANTUS SUB-Q SCH (23:25)
[2018-07-07] MEDS: NORCO 10/325 PO PRN ×2 (05:38→20:12)
[2018-07-07] MEDS: FEOSOL PO SCH ×2 (09:16→17:13)
[2018-07-07] MEDS: NEURONTIN PO SCH ×3 (09:16→20:12)
[2018-07-07] MEDS: LOPRESSOR PO SCH ×2 (09:16→22:34)
[2018-07-07] MEDS: LOVENOX SUB-Q SCH (09:16)
[2018-07-07] MEDS: NORVASC PO SCH (09:16)
[2018-07-07] MEDS: VITAMIN C PO SCH ×2 (09:17→17:13)
[2018-07-07] MEDS: HumuLIN R SUB-Q SCH ×4 (09:17→22:32)
[2018-07-07] MEDS: ROXICODONE PO PRN ×2 (10:47→22:33)
[2018-07-07] MEDS: NORCO 5/325 PO PRN (15:20)
[2018-07-07] MEDS: LANTUS SUB-Q SCH (22:49)
[2018-07-08] MEDS: NORCO 10/325 PO PRN ×3 (05:10→17:39)
[2018-07-08 06:31] LABS: Basophils # (Auto) 0.1 K/mm3 (0.0-0.1); Basophils % (Auto) 0.6 % (0.0-1.8); Eosinophils # (Auto) 0.3 K/mm3 (0.0-0.4); Eosinophils % (Auto) 3.2 % (0.0-4.3); Hematocrit 26.6 % (35.5-45.6); Hemoglobin 8.5 gm/dl (11.8-15.2); Lymphocytes # (Auto) 2.2 K/mm3 (1.2-5.4); Lymphocytes % (Auto) 23.3 % (13.4-35.0); Mean Corpuscular HGB Conc 32 % (32-34); Mean Corpuscular Volume 78 fl (84-94); Monocytes # (Auto) 0.6 K/mm3 (0.0-0.8); Monocytes % (Auto) 6.7 % (0.0-7.3); Platelet Count 650 K/mm3 (140-440); Red Blood Count 3.41 M/mm3 (3.65-5.03); Red Cell Distribution Width 18.7 % (13.2-15.2)
[2018-07-08 06:53] LABS: BUN/Creatinine Ratio 31; Blood Urea Nitrogen 31 mg/dL (9-20); Hemolysis Index 1
[2018-07-08] MEDS: VITAMIN C PO SCH ×2 (08:07→17:39)
[2018-07-08] MEDS: NEURONTIN PO SCH ×3 (08:07→21:51)
[2018-07-08] MEDS: FEOSOL PO SCH ×2 (08:07→17:39)
[2018-07-08] MEDS: LOPRESSOR PO SCH ×2 (08:07→21:51)
[2018-07-08] MEDS: NORVASC PO SCH (08:07)
[2018-07-08] MEDS: HumuLIN R SUB-Q SCH ×4 (08:08→21:52)
[2018-07-08] MEDS: LOVENOX SUB-Q SCH (08:08)
[2018-07-08] MEDS ORDERED: LANTUS SUB-Q SCH (09:00)
--- NOTE | 2018-07-08 11:44 | Progress Note ---
Subjective Date of service: 07/08/18 Principal diagnosis: R BKA Interval history: 47-year-old male with a left BKA who stated he been doing a lot of walking recently. He noticed his right toe had turned hard and black and sought assistance at the ER. 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 He underwent a guillotine procedure for for his right leg until it could be completed several days later. He underwent antibiotic treatment. His blood sugars were also difficult to control with frequent elevations into the 300 area. Do not see a recent A1c available in the system. He was previously independent. We will work with him to return to a level of independence and if time allows try to have him fitted for his right prosthesis with [employer] prosthetics. Wounds on the left stump will need to heal prior to being L use his left prosthesis again. Patient had some nausea and vomiting accompanied by a low blood sugar prior to being transferred to the rehabilitation unit which delayed his coming over. Per the patient and the nu rse seems like it may have been food related and he feels better now. Patient noted to have normal WBC on June 27 however all white count prior to that were elevated up to 37.7 at the high. WBC on 07/02 was 13.1, he has completed antibiotics we will monitor this for any continued elevation are signs of infectious process. Hemoglobin upon presentation and was 9.5 on June 23, and has slowly decreased to 8.8. We'll continue to monitor. Patient is participating in therapy and making reasonable progress. Taking rest breaks as needed. +BM. Denies palpitations, dyspnea, cough, N/V, weakness, or joint pain. Hemoglobin A1c elevated at 11.4, adjusted insulin to twice a day and slightly decreased dose for better control throughout the day. Pain is better controlled with addition of breakthrough medication. Leukocytosis has normalized. Still does not have fever, does not appear septic. Tolerating diet. Discussed in team conference. All records, vitals, labs and medications were reviewed. No other issues per patient, nursing or therapy. Objective - Exam Narrative Exam: MUSCULOSKELETAL SPECIALTY EXAM CONSTITUTIONAL: Well developed, appropriately groomed EENT: EOMI. poor dentition, dentures at home, hearing intact to soft voice RESPIRATORY: Clear to ascultation bilaterally, no increased work of breathing CARDIOVASCULAR: Regular Rate/ Rhythm, no swelling, edema or tenderness in BUE or BLE. All ex tremities warm. GI: + bowel sounds, soft, NTTP, nondistended. INTEGUMENTARY: Normal, no lesion, rash, masses or bruising noted in extremities except for left lower extremity lesions and RLE surgical site. It is developing some areas of irritation on the posterior thigh due to stump protector. MUSCULOSKELETAL: BUE normal without defect, crepitus, subluxation, effusion, arthritic changes or TTP. BLE with bilateral BKA, right in stump protector BUE 4+/5, good ROM, with normal tone. BLE 4/5 good ROM, with normal tone NEURO: CN 2-12 grossly intact. Sensation intact in all extremities. No tremor noted in 4 extremities. POSTURE and GAIT: Sitting posture good. Balance appears reasonable. Unable to ambulate currently due to bilateral BKA, has prosthesis for left but multiple sores. PSYCH: Alert, orientated x3, affect appears normal. Insight appears intact. - Constitutional Vitals: Vital Signs - 12hr 07/08/18 07/08/18 07/08/18 04:55 07:57 07:59 Temperature 36.8 C 36.3 C L 36.3 C L Pulse Rate 73 85 85 Respiratory 18 18 18 Rate Blood Pressure 128/76 Blood Pressure 149/87 [Right] O2 Sat by Pulse 98 99 Oximetry - Allied health notes Allied health notes reviewed: nursing, PT, OT FIMS assessment as documented by PT/OT/ST: Grooming Patient cleans teeth/dentures: Yes Patient osei/brushes hair: Yes Patient washes, rinses and Yes dries face: Patient washes, rinses and Yes dries hands: Patient shaves: No Patient performs (no make-up/ 4/4 (100%) shaving): Grooming FIM Score 5. Supervision ([place] applies toothpaste or opens containers.) Toileting Toileting Device Commode over Toilet Patient able to: Adjust clothes before,Clean self,Adjust clothes after Patient able to perform: 3/3 (100%) Toileting FIM Score 5. Supv./Set-Up (Needs stand-by, set-up, applying prosth/orth.) Social interaction/Memory/Problem solving Social Interaction FIM Score 7. Complete [place] (Interacts appropriately. Controls temper.) Memory FIM Score 5. Supervision (Needs cueing <10%, stressful/ unfamiliar situations.) Problem Solving FIM Score 5. Supervision (Needs cueing <10% to solve routine problems.) Transfers Mode of Locomotion: Wheelchair Bed/Chair/Wheelchair Transfers 4. Minimal Assistance (Patient = 75% or more. FIM Score Needs touching.) Toilet Transfers FIM Score 4. Minimal Assistance (Patient = 75% or more. Needs touching.) Patient transferred to: Shower Shower Transfers FIM Score 4. Minimal Assistance (Patient = 75% or more. Needs touching.) Locomotion- Stairs Stairs FIM Score 0. Activity does not occur Locomotion- walk/wheelchair Most Frequent Mode of Walking Locomotion: Walking FIM Score 0. Activity does not occur Wheelchair Propulsion Distance 500 Wheelchair FIM Score 4. Minimal Assistance (Patient = 75% or more. Minimum of 150 ft.) Eating Eating Device Adjusted Table Height Eating FIM Score 7. Complete [place] (Cuts meat, opens containers, regular diet.) Dressing-Upper body Patient retrieves clothing No items: Patient applies/removes UE n/a prosthesis or orthosis: Upper Body Dressing FIM Score 5. Supv./Set-Up ([place] sets out clothes or applies pros./orth.) Dressing-lower body Patient retrieves clothing No items: Patient applies/removes LE Yes prosthesis or orthosis: Lower Body Dressing FIM Score 5. Supv./Set-Up ([place] sets out clothes or applies pros./orth.) - Labs CBC & Chem 7: 07/08/18 05:58 07/08/18 05:58 Labs: Laboratory Results - last 72 hr 07/05/18 07/05/18 07/05/18 11:56 16:53 21:35 WBC RBC Hgb Hct MCV MCH MCHC RDW Plt Count Lymph % (Auto) [place] % (Auto) Eos % (Auto) Baso % (Auto) Lymph # [place] # Eos # Baso # Seg Neutrophils % Seg Neutrophils # Sodium Potassium Chloride Carbon Dioxide Anion Gap BUN Creatinine Estimated GFR BUN/Creatinine Ratio Glucose POC Glucose 216 H 305 H 129 H Calcium 07/06/18 07/06/18 07/06/18 08:06 11:42 16:24 WBC RBC Hgb Hct MCV MCH MCHC RDW Plt Count Lymph % (Auto) [place] % (Auto) Eos % (Auto) Baso % (Auto) Lymph # [place] # Eos # Baso # Seg Neutrophils % Seg Neutrophils # Sodium Potassium Chloride Carbon Dioxide Anion Gap BUN Creatinine Estimated GFR BUN/Creatinine Ratio Glucose POC Glucose 284 H 238 H 48 L Calcium 07/06/18 07/06/18 07/06/18 16:45 21:37 23:06 WBC RBC Hgb Hct MCV MCH MCHC RDW Plt Count Lymph % (Auto) [place] % (Auto) Eos % (Auto) Baso % (Auto) Lymph # [place] # Eos # Baso # Seg Neutrophils % Seg Neutrophils # Sodium Potassium Chloride Carbon Dioxide Anion Gap BUN Creatinine Estimated GFR BUN/Creatinine Ratio Glucose POC Glucose 143 H 318 H 363 H Calcium 07/07/18 07/07/18 07/07/18 08:36 12:13 16:14 WBC RBC Hgb Hct MCV MCH MCHC RDW Plt Count Lymph % (Auto) [place] % (Auto) Eos % (Auto) Baso % (Auto) Lymph # [place] # Eos # Baso # Seg Neutrophils % Seg Neutrophils # Sodium Potassium Chloride Carbon Dioxide Anion Gap BUN Creatinine Estimated GFR BUN/Creatinine Ratio Glucose POC Glucose 196 H 110 H 303 H Calcium 07/07/18 07/08/18 07/08/18 22:14 05:58 05:58 WBC 9.5 RBC 3.41 L Hgb 8.5 L Hct 26.6 L MCV 78 L MCH 25 L MCHC 32 RDW 18.7 H Plt Count 650 H Lymph % (Auto) 23.3 [place] % (Auto) 6.7 Eos % (Auto) 3.2 Baso % (Auto) 0.6 Lymph # 2.2 [place] # 0.6 Eos # 0.3 Baso # 0.1 Seg Neutrophils % 66.2 Seg Neutrophils # 6.3 Sodium 140 Potassium 4.6 Chloride 98.3 Carbon Dioxide 28 Anion Gap 18 BUN 31 H Creatinine 1.0 Estimated GFR > 60 BUN/Creatinine Ratio 31 Glucose 96 POC Glucose 273 H Calcium 9.0 07/08/18 07/08/18 07:59 09:15 WBC RBC Hgb Hct MCV MCH MCHC RDW Plt Count Lymph % (Auto) [place] % (Auto) Eos % (Auto) Baso % (Auto) Lymph # [place] # Eos # Baso # Seg Neutrophils % Seg Neutrophils # Sodium Potassium Chloride Carbon Dioxide Anion Gap BUN Creatinine Estimated GFR BUN/Creatinine Ratio Glucose POC Glucose 45 L 271 H Calcium Assessment and Plan Z47.81 R BKA: Continue PT/OT to improve ability to transfer. Will attempt to get him fitted for prosthesis if time permits. Monitor surgical site. Maintain ROM. Stump protector. I10 Hypertension: continue medications and adjust as needed. Has been elevated on acute side - PRN ordered E10.65 Type 1 Diabetes: Carb controlled diet, manage Blood GLU levels and adjust insulin as needed., A1c 11.4. D62 ABLA, D50.9 Fe Def Anemia, D51.9: Mixed picture, replace iron and B12. monitor. Transfusion if <7. E46 Protein malnutrition: Supplements ordered, discussed with patient. D72.829 Leukocytosis: improving. afebrile. Does not appear septic. Monitor wounds and vitals. Start on Abx if signs point towards infectious cause. Z73.6 ADL dysfunction: OT will work on improving ability to perform ADLs (including assistive devices) to increase independence and decrease caregiver burden and improve functional transfers and mobility training. R26.2 Difficulty walking: PT will work on gait training if we can clear LLE wounds for prsthesis use and advance as appropriate to use of stairs and outside ambulation on uneven surfaces. Will see about being fitted for RLE prothesis. R26.89 Abnormality of gait: PT will work to improve safety and efficiency of gait through neuromotor training and gait training along with instruction on proper use of prosthesis if we can get them in time. M62.81 Muscle weakness: PT & OT will work on strengthening exercises to improve functional strength including mixture of closed and open kinetic chain exercises. R53.81 Debility: PT & OT will work on improving overall functional status to improve participation with ADLs, mobility and social involvement. R53.83 Fatigue: PT & OT will work on improving endurance through aerobic exercises and therapeutic activity while monitoring patients tolerance for activity and vital signs as needed. G54.7 Phantom sensation: +/- pain but not severe. Continue gabapentin, d esensitization. Repeat blood cultures pending. Does not appear septic and remains afebrile. However 1 out of 2 cultures from acute care side resulted positive. DVT ppx: Lovenox Pain: Continue physical modalities in therapy and pain medications as needed to achieve functional pain control. Sleep: Monitor and address as needed. Bowel: Monitor and address as needed. Appetite: Monitor and address as needed. Discharge planning: Pending therapy progress and care plan meeting. Will continue discussion with therapy team, SW, patient and family. Restrictions/ Precautions: Falls WB status: NWB until prostheses are available and able to wear Functional Hx: ADLs: Independent Cognition: Independent Mobility: No AD Barriers to Discharge: Decreased mobility and ability to perform self care, balance deficits, weakness Estimated Length of Stay: 14 days Discharge Destination: Home with family
[2018-07-08] MEDS: ROXICODONE PO PRN (13:57)
[2018-07-08] MEDS: NORCO 5/325 PO PRN (21:51)
[2018-07-08] MEDS: LANTUS SUB-Q SCH (21:53)
[2018-07-09] MEDS: NORCO 5/325 PO PRN (05:52)
[2018-07-09 07:05] LABS: Basophils # (Auto) 0.1 K/mm3 (0.0-0.1); Eosinophils # (Auto) 0.4 K/mm3 (0.0-0.4); Eosinophils % (Auto) 3.9 % (0.0-4.3); Hematocrit 29.2 % (35.5-45.6); Hemoglobin 8.8 gm/dl (11.8-15.2); Lymphocytes % (Auto) 20.4 % (13.4-35.0); Mean Corpuscular HGB Conc 30 % (32-34); Mean Corpuscular Volume 79 fl (84-94); Monocytes # (Auto) 0.6 K/mm3 (0.0-0.8); Monocytes % (Auto) 6.1 % (0.0-7.3); Platelet Count 704 K/mm3 (140-440); Red Blood Count 3.71 M/mm3 (3.65-5.03); Red Cell Distribution Width 18.7 % (13.2-15.2)
[2018-07-09] MEDS: HumuLIN R SUB-Q SCH ×3 (08:00→17:11)
[2018-07-09] MEDS: LANTUS SUB-Q SCH (08:58)
[2018-07-09] MEDS: NEURONTIN PO SCH ×3 (08:58→21:18)
[2018-07-09] MEDS: VITAMIN C PO SCH ×2 (08:59→17:11)
[2018-07-09] MEDS: NORVASC PO SCH (08:59)
[2018-07-09] MEDS: LOPRESSOR PO SCH ×2 (09:00→21:20)
[2018-07-09] MEDS: FEOSOL PO SCH ×2 (09:00→17:11)
[2018-07-09] MEDS: LOVENOX SUB-Q SCH (09:00)
[2018-07-09] MEDS: NORCO 10/325 PO PRN ×3 (12:37→23:01)
--- NOTE | 2018-07-09 18:10 | Event Note ---
Date: 07/09/18 Microbiology called me to report positive blood culture. MSSA 1/2 bottle, possible contaminated but I called Dr. Obrien at 1808 to left a message r ecommending ID consult.
[2018-07-10] MEDS: LANTUS SUB-Q SCH ×3 (00:42→20:39)
[2018-07-10] MEDS: HumuLIN R SUB-Q SCH ×5 (00:43→22:39)
[2018-07-10] MEDS: NORCO 10/325 PO PRN ×3 (05:49→17:36)
[2018-07-10 07:34] LABS: Basophils # (Auto) 0.1 K/mm3 (0.0-0.1); Basophils % (Auto) 0.8 % (0.0-1.8); Eosinophils # (Auto) 0.3 K/mm3 (0.0-0.4); Eosinophils % (Auto) 5.2 % (0.0-4.3); Hematocrit 27.5 % (35.5-45.6); Hemoglobin 8.7 gm/dl (11.8-15.2); Lymphocytes # (Auto) 1.5 K/mm3 (1.2-5.4); Lymphocytes % (Auto) 22.7 % (13.4-35.0); Mean Corpuscular HGB Conc 32 % (32-34); Mean Corpuscular Volume 78 fl (84-94); Monocytes # (Auto) 0.5 K/mm3 (0.0-0.8); Platelet Count 692 K/mm3 (140-440); Red Blood Count 3.54 M/mm3 (3.65-5.03); Red Cell Distribution Width 18.8 % (13.2-15.2)
[2018-07-10] MEDS: NORVASC PO SCH (08:27)
[2018-07-10] MEDS: LOVENOX SUB-Q SCH (08:27)
[2018-07-10] MEDS: FEOSOL PO SCH ×2 (08:28→17:36)
[2018-07-10] MEDS: LOPRESSOR PO SCH ×2 (08:28→22:33)
[2018-07-10] MEDS: VITAMIN C PO SCH ×2 (08:28→17:36)
[2018-07-10] MEDS: NEURONTIN PO SCH ×3 (08:28→20:33)
--- NOTE | 2018-07-10 10:52 | Progress Note ---
Subjective Date of service: 07/10/18 Principal diagnosis: R BKA Interval history: 47-year-old male with a left BKA who stated he been doing a lot of walking recently. He noticed his right toe had turned hard and black and sought assistance at the ER. 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 He underwent a guillotine procedure for for his right leg until it could be completed several days later. He underwent antibiotic treatment. His blood sugars were also difficult to control with frequent elevations into the 300 area. Do not see a recent A1c available in the system. He was previously independent. We will work with him to return to a level of independence and if time allows try to have him fitted for his right prosthesis with [employer] prosthetics. Wounds on the left stump will need to heal prior to being L use his left prosthesis again. Patient had some nausea and vomiting accompanied by a low blood sugar prior to being transferred to the rehabilitation unit which delayed his coming over. Per the patient and the nu rse seems like it may have been food related and he feels better now. Patient noted to have normal WBC on June 27 however all white count prior to that were elevated up to 37.7 at the high. WBC on 07/02 was 13.1, he has completed antibiotics we will monitor this for any continued elevation are signs of infectious process. Hemoglobin upon presentation and was 9.5 on June 23, and has slowly decreased to 8.8. We'll continue to monitor. Patient is participating in therapy and making reasonable progress. Taking rest breaks as needed. +BM. Denies palpitations, dyspnea, cough, N/V, weakness, or joint pain. For unknown reason Lantus was held last night. This resulted in elevated glucose this morning at 361. Patient states he is not always getting a snack and prefers to have something like a sandwich and a salad versus peanut butter crackers. Will continue to monitor blood glucose and address issues with nursing to ensure that he is getting his Lantus. Did suggest that he follow up with an social sciences department chair for consideration of an insulin pump which would help him to obtain better control over his type 1 diabetes. Pain is better controlled. Leukocytosis has normalized. Repeat blood cultures are negative at 48 hours. Still does not have fever, does not appear septic. Awaiting wound consult. Tolerating diet. All records, vitals, labs and medications were reviewed. No other issues per patient, nursing or therapy. Objective - Exam Narrative Exam: MUSCULOSKELETAL SPECIALTY EXAM CONSTITUTIONAL: Well developed, appropriately groomed EENT: EOMI. poor dentition, dentures at home, hearing intact to soft voice RESPIRATORY: Clear to ascultation bilaterally, no increased work of breathing CARDIOVASCULAR: Regular Rate/ Rhythm, no swelling, edema or tenderness in BUE or BLE. All extremities warm. GI: + bowel sounds, soft, NTTP, nondistended. INTEGUMENTARY: Normal, no lesion, rash, masses or bruising noted in extremities except for left lower extremity lesions and RLE surgical site. MUSCULOSKELETAL: BUE normal without defect, crepitus, subluxation, effusion, arthritic changes or TTP. BLE with bilateral BKA, right in stump protector BUE 4+/5, good ROM, with normal tone. BLE 4/5 good ROM, with normal tone NEURO: CN 2-12 grossly intact. Sensation intact in all extremities. No tremor noted in 4 extremities. POSTURE and GAIT: Sitting posture good. Balance appears reasonable. Unable to ambulate currently due to bilateral BKA, has prosthesis for left but multiple sores. PSYCH: Alert, orientated x3, affect appears normal. Insight appears intact. - Constitutional Vitals: Vital Signs - 12hr 07/09/18 07/10/18 07/10/18 23:01 04:47 05:49 Temperature 36.2 C L Pulse Rate 80 Respiratory 18 18 20 Rate Respiratory Rate [Left Lower Anterior Leg] Blood Pressure 139/86 O2 Sat by Pulse 98 Oximetry 07/10/18 07/10/18 07/10/18 07:37 08:27 09:39 Temperature 36.6 C Pulse Rate 83 83 Respiratory 18 Rate Respiratory 18 Rate [Left Lower Anterior Leg] Blood Pressure 133/72 133/72 O2 Sat by Pulse 96 Oximetry - Allied health notes Allied health notes reviewed: nursing, PT, OT FIMS assessment as documented by PT/OT/ST: Grooming Patient cleans teeth/dentures: Yes Patient osei/brushes hair: Yes Patient washes, rinses and Yes dries face: Patient washes, rinses and Yes dries hands: Patient shaves: No Patient performs (no make-up/ /4 (100%) shaving): Grooming FIM Score 5. Supervision ([place] applies toothpaste or opens containers.) Toileting Toileting Device Commode over Toilet Patient able to: Adjust clothes before,Clean self,Adjust clothes after Patient able to perform: 3/3 (100%) Toileting FIM Score 5. Supv./Set-Up (Needs stand-by, set-up, applying prosth/orth.) Social interaction/Memory/Problem solving Social Interaction FIM Score 7. Complete [place] (Interacts appropriately. Controls temper.) Memory FIM Score 6. Modified [place](Mild difficulty remembering people/routines.) Problem Solving FIM Score 6. Mod. [place] (Mild difficulty or needs more time w/ complex.) Transfers Mode of Locomotion: Wheelchair Bed/Chair/Wheelchair Transfers 5. Supervision (Needs supv. or set-up for FIM Score sliding board, foot rests.) Toilet Transfers FIM Score 4. Minimal Assistance (Patient = 75% or more. Needs touching.) Patient transferred to: Shower Shower Transfers FIM Score 4. Minimal Assistance (Patient = 75% or more. Needs touching.) Locomotion- Stairs Stairs FIM Score 0. Activity does not occur Locomotion- walk/wheelchair Most Frequent Mode of Wheelchair Locomotion: Walking FIM Score 0. Activity does not occur Wheelchair Propulsion Distance 500 Wheelchair FIM Score 6. Modified [place] (Wheels a minimum of 150 ft.) Eating Eating Device Adjusted Table Height Eating FIM Score 7. Complete [place] (Cuts meat, opens containers, regular diet.) Dressing-Upper body Patient retrieves clothing No items: Patient applies/removes UE n/a prosthesis or orthosis: Upper Body Dressing FIM Score 5. Supv./Set-Up ([place] sets out clothes or applies pros./orth.) Dressing-lower body Patient retrieves clothing No items: Patient applies/removes LE Yes prosthesis or orthosis: Lower Body Dressing FIM Score 5. Supv./Set-Up ([place] sets out clothes or applies pros./orth.) - Labs CBC & Chem 7: 07/10/18 07:15 07/08/18 05:58 Labs: Laboratory Results - last 72 hr 07/07/18 07/07/18 07/07/18 12:13 16:14 22:14 WBC RBC Hgb Hct MCV MCH MCHC RDW Plt Count Lymph % (Auto) [place] % (Auto) Eos % (Auto) Baso % (Auto) Lymph # [place] # Eos # Baso # Seg Neutrophils % Seg Neutrophils # Sodium Potassium Chloride Carbon Dioxide Anion Gap BUN Creatinine Estimated GFR BUN/Creatinine Ratio Glucose POC Glucose 110 H 303 H 273 H Calcium 07/08/18 07/08/18 07/08/18 05:58 05:58 07:59 WBC 9.5 RBC 3.41 L Hgb 8.5 L Hct 26.6 L MCV 78 L MCH 25 L MCHC 32 RDW 18.7 H Plt Count 650 H Lymph % (Auto) 23.3 [place] % (Auto) 6.7 Eos % (Auto) 3.2 Baso % (Auto) 0.6 Lymph # 2.2 [place] # 0.6 Eos # 0.3 Baso # 0.1 Seg Neutrophils % 66.2 Seg Neutrophils # 6.3 Sodium 140 Potassium 4.6 Chloride 98.3 Carbon Dioxide 28 Anion Gap 18 BUN 31 H Creatinine 1.0 Estimated GFR > 60 BUN/Creatinine Ratio 31 Glucose 96 POC Glucose 45 L Calcium 9.0 07/08/18 07/08/18 07/08/18 09:15 11:53 16:39 WBC RBC Hgb Hct MCV MCH MCHC RDW Plt Count Lymph % (Auto) [place] % (Auto) Eos % (Auto) Baso % (Auto) Lymph # [place] # Eos # Baso # Seg Neutrophils % Seg Neutrophils # Sodium Potassium Chloride Carbon Dioxide Anion Gap BUN Creatinine Estimated GFR BUN/Creatinine Ratio Glucose POC Glucose 271 H 327 H 162 H Calcium 07/08/18 07/09/18 07/09/18 20:56 00:37 01:13 WBC RBC Hgb Hct MCV MCH MCHC RDW Plt Count Lymph % (Auto) [place] % (Auto) Eos % (Auto) Baso % (Auto) Lymph # [place] # Eos # Baso # Seg Neutrophils % Seg Neutrophils # Sodium Potassium Chloride Carbon Dioxide Anion Gap BUN Creatinine Estimated GFR BUN/Creatinine Ratio Glucose POC Glucose 362 H 64 L 109 H Calcium 07/09/18 07/09/18 07/09/18 06:51 08:00 12:28 WBC 9.9 RBC 3.71 Hgb 8.8 L Hct 29.2 L MCV 79 L MCH 24 L MCHC 30 L RDW 18.7 H Plt Count 704 H Lymph % (Auto) 20.4 [place] % (Auto) 6.1 Eos % (Auto) 3.9 Baso % (Auto) 1.0 Lymph # 2.0 [place] # 0.6 Eos # 0.4 Baso # 0.1 Seg Neutrophils % 68.6 Seg Neutrophils # 6.8 Sodium Potassium Chloride Carbon Dioxide Anion Gap BUN Creatinine Estimated GFR BUN/Creatinine Ratio Glucose POC Glucose 188 H 233 H Calcium 07/09/18 07/09/18 07/10/18 17:12 21:31 07:15 WBC 6.8 RBC 3.54 L Hgb 8.7 L Hct 27.5 L MCV 78 L MCH 25 L MCHC 32 RDW 18.8 H Plt Count 692 H Lymph % (Auto) 22.7 [place] % (Auto) 7.0 Eos % (Auto) 5.2 H Baso % (Auto) 0.8 Lymph # 1.5 [place] # 0.5 Eos # 0.3 Baso # 0.1 Seg Neutrophils % 64.3 Seg Neutrophils # 4.4 Sodium Potassium Chloride Carbon Dioxide Anion Gap BUN Creatinine Estimated GFR BUN/Creatinine Ratio Glucose POC Glucose 267 H 181 H Calcium 07/10/18 07:42 WBC RBC Hgb Hct MCV MCH MCHC RDW Plt Count Lymph % (Auto) [place] % (Auto) Eos % (Auto) Baso % (Auto) Lymph # [place] # Eos # Baso # Seg Neutrophils % Seg Neutrophils # Sodium Potassium Chloride Carbon Dioxide Anion Gap BUN Creatinine Estimated GFR BUN/Creatinine Ratio Glucose POC Glucose 361 H Calcium Assessment and Plan Z47.81 R BKA: Continue PT/OT to improve ability to transfer. Will attempt to get him fitted for prosthesis if time permits. Monitor surgical site. Maintain ROM. Stump protector. I10 Hypertension: continue medications and adjust as needed. Has been elevated on acute side - PRN ordered E10.65 Type 1 Diabetes: Carb controlled diet, manage Blood GLU levels and adjust insulin as needed., A1c 11.4. D62 ABLA, D50.9 Fe Def Anemia, D51.9: Mixed picture, replace iron and B12. monitor. Transfusion if <7. E46 Protein malnutrition: Supplements ordered, discussed with patient. D72.829 Leukocytosis: improving. afebrile. Does not appear septic. Monitor wounds and vitals. Start on Abx if signs point towards infectious cause. Z73.6 ADL dysfunction: OT will work on improving ability to perform ADLs (including assistive devices) to increase independence and decrease caregiver burden and improve functional transfers and mobility training. R26.2 Difficulty walking: PT will work on gait training if we can clear LLE wounds for prsthesis use and advance as appropriate to use of stairs and outside ambulation on uneven surfaces. Will see about being fitted for RLE prothesis. R26.89 Abnormality of gait: PT will work to improve safety and efficiency of gait through neuromotor training and gait training along with instruction on proper use of prosthesis if we can get them in time. M62.81 Muscle weakness: PT & OT will work on strengthening exercises to improve functional strength including mixture of closed and open kinetic chain exerc ises. R53.81 Debility: PT & OT will work on improving overall functional status to improve participation with ADLs, mobility and social involvement. R53.83 Fatigue: PT & OT will work on improving endurance through aerobic exercises and therapeutic activity while monitoring patients tolerance for ac tivity and vital signs as needed. G54.7 Phantom sensation: +/- pain but not severe. Continue gabapentin, desensitization. Repeat blood cultures no growth at 48 hours. Does not appear septic and remains afebrile. However 1 out of 2 cultures from acute care side resulted positive. DVT ppx: Lovenox Pain: Continue physical modalities in therapy and pain medications as needed to achieve functional pain control. Sleep: Monitor and address as needed. Bowel: Monitor and address as needed. Appetite: Monitor and address as needed. Discharge planning: Pending therapy progress and care plan meeting. Will continue discussion with therapy team, SW, patient and family. Restrictions/ Precautions: Falls WB status: NWB until prostheses are available and able to wear Functional Hx: ADLs: Independent Cognition: Independent Mobility: No AD Barriers to Discharge: Decreased mobility and ability to perform self care, balance deficits, weakness Estimated Length of Stay: 14 days Discharge Destination: Home with family
[2018-07-10] MEDS: NORCO 5/325 PO PRN (22:31)
[2018-07-11] MEDS: ROXICODONE PO PRN (02:28)
[2018-07-11 07:45] LABS: Basophils # (Auto) 0.1 K/mm3 (0.0-0.1); Basophils % (Auto) 0.9 % (0.0-1.8); Eosinophils # (Auto) 0.4 K/mm3 (0.0-0.4); Eosinophils % (Auto) 5.5 % (0.0-4.3); Hematocrit 28.5 % (35.5-45.6); Lymphocytes # (Auto) 2.3 K/mm3 (1.2-5.4); Lymphocytes % (Auto) 32.2 % (13.4-35.0); Mean Corpuscular HGB Conc 32 % (32-34); Mean Corpuscular Volume 78 fl (84-94); Monocytes # (Auto) 0.5 K/mm3 (0.0-0.8); Monocytes % (Auto) 6.6 % (0.0-7.3); Platelet Count 713 K/mm3 (140-440); Red Blood Count 3.64 M/mm3 (3.65-5.03); Red Cell Distribution Width 19.2 % (13.2-15.2)
[2018-07-11] MEDS: HumuLIN R SUB-Q SCH ×4 (09:28→22:02)
[2018-07-11] MEDS: VITAMIN C PO SCH ×2 (09:30→16:25)
[2018-07-11] MEDS: NEURONTIN PO SCH ×3 (09:30→21:46)
[2018-07-11] MEDS: NORVASC PO SCH (09:31)
[2018-07-11] MEDS: NORCO 10/325 PO PRN ×3 (09:31→18:27)
[2018-07-11] MEDS: THERAGRAN Tab PO SCH (09:32)
[2018-07-11] MEDS: LOPRESSOR PO SCH ×2 (09:32→21:51)
[2018-07-11] MEDS: LOVENOX SUB-Q SCH (09:33)
[2018-07-11] MEDS: FEOSOL PO SCH ×2 (09:33→16:25)
[2018-07-11] MEDS: LANTUS SUB-Q SCH ×2 (09:36→21:46)
--- NOTE | 2018-07-11 13:47 | Progress Note ---
Subjective Date of service: 07/11/18 Principal diagnosis: R BKA Interval history: 47-year-old male with a left BKA who stated he been doing a lot of walking recently. He noticed his right toe had turned hard and black and sought assistance at the ER. 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 He underwent a guillotine procedure for for his right leg until it could be completed several days later. He underwent antibiotic treatment. His blood sugars were also difficult to control with frequent elevations into the 300 area. Do not see a recent A1c available in the system. He was previously independent. We will work with him to return to a level of independence and if time allows try to have him fitted for his right prosthesis with [employer] prosthetics. Wounds on the left stump will need to heal prior to being L use his left prosthesis again. Patient had some nausea and vomiting accompanied by a low blood sugar prior to being transferred to the rehabilitation unit which delayed his coming over. Per the patient and the nu rse seems like it may have been food related and he feels better now. Patient noted to have normal WBC on June 27 however all white count prior to that were elevated up to 37.7 at the high. WBC on 07/02 was 13.1, he has completed antibiotics we will monitor this for any continued elevation are signs of infectious process. Hemoglobin upon presentation and was 9.5 on June 23, and has slowly decreased to 8.8. We'll continue to monitor. Patient is participating in therapy and making reasonable progress. Taking rest breaks as needed. +BM. Denies palpitations, dyspnea, cough, N/V, weakness, or joint pain. Blood GLU better today. Will continue to monitor and adjust as needed for better control. Emphasized to patient that he will need to discuss with PCP and will need to eat consistent meals to keep GLU in target range. Again suggested follow up with ENDO to discuss possible Insulin pump use. Pain is better controlled. Repeat blood cultures are negative at 72 hours. Still does not have fever, does not appear septic. Tolerating diet. All records, vitals, labs and medications were reviewed. No other issues per patient, nursing or therapy. Objective - Exam Narrative Exam: MUSCULOSKELETAL SPECIALTY EXAM CONSTITUTIONAL: Well developed, appropriately groomed EENT: EOMI. poor dentition, dentures at home, hearing intact to soft voice RESPIRATORY: Clear to ascultation bilaterally, no increased work of breathing CARDIOVASCULAR: Regular Rate/ Rhythm, no swelling, edema or tenderness in BUE or BLE. All extremities warm. GI: + bowel sounds, soft, NTTP, nondistended. INTEGUMENTARY: Normal, no lesion, rash, masses or bruising noted in extremities except for left lower extremity lesions and RLE surgical site. MUSCULOSKELETAL: BUE normal without defect, crepitus, subluxation, effusion, arthritic changes or TTP. BLE with bilateral BKA, right in stump protector BUE 4+/5, good ROM, with normal tone. BLE 4/5 good ROM, with normal tone NEURO: CN 2-12 grossly intact. Sensation intact in all extremities. No tremor noted in 4 extremities. POSTURE and GAIT: Sitting posture good. Balance appears reasonable. Unable to ambulate currently due to bilateral BKA, has prosthesis for left but multiple sores. PSYCH: Alert, orientated x3, affect appears normal. Insight appears intact. - Constitutional Vitals: Vital Signs - 12hr 07/11/18 07/11/18 07/11/18 03:28 09:31 09:32 Temperature Pulse Rate 83 83 Respiratory 17 Rate Blood Pressure 135/83 135/83 Blood Pressure [Right] 07/11/18 07/11/18 09:54 10:31 Temperature 36.4 C Pulse Rate 83 Respiratory 18 18 Rate Blood Pressure Blood Pressure 135/83 [Right] - Allied health notes Allied health notes reviewed: nursing, PT, OT FIMS assessment as documented by PT/OT/ST: Grooming Patient cleans teeth/dentures: Yes: has no teeth, and does not have dentures. Cleans entire mouth /c clothe Patient osei/brushes hair: Yes Patient washes, rinses and Yes dries face: Patient washes, rinses and Yes dries hands: Patient shaves: No: doesn't shave, but presents with ability to shave Patient performs (no make-up/ 08/21 (100%) shaving): Grooming FIM Score 6. Modified [place] (Needs equipment/device . Extra time.) Toileting Toileting Device Urinal,Commode over Toilet,Grab Bar Patient able to: Clean self Patient able to perform: 2/3 (67%) Toileting FIM Score 6. Modified [place] (Needs equip. or prosth ./orth.) Social interaction/Memory/Problem solving Social Interaction FIM Score 7. Complete [place] (Interacts appropriately. Controls temper.) Memory FIM Score 7. Complete [place] (Remembers people and routines.) Problem Solving FIM Score 7. Complete [place] (Solves complex problems. Self corrects.) Transfers Mode of Locomotion: Wheelchair Bed/Chair/Wheelchair Transfers 6. Modified [place] (Uses device, sliding FIM Score board, prosth./orth.) Toilet Transfers FIM Score 5. Supervision (Needs supervision or cueing.) Patient transferred to: Shower Shower Transfers FIM Score 4. Minimal Assistance (Patient = 75% or more. Needs touching.) Locomotion- Stairs Stairs FIM Score 0. Activity does not occur Locomotion- walk/wheelchair Most Frequent Mode of Wheelchair Locomotion: Walking FIM Score 0. Activity does not occur Wheelchair Propulsion Distance 500 Wheelchair FIM Score 6. Modified [place] (Wheels a minimum of 150 ft.) Eating Eating Device Adjusted Table Height Eating FIM Score 7. Complete [place] (Cuts meat, opens containers, regular diet.) Dressing-Upper body Patient retrieves clothing No items: Patient applies/removes UE n/a prosthesis or orthosis: Upper Body Dressing FIM Score 5. Supv./Set-Up ([place] sets out clothes or applies pros./orth.) Dressing-lower body Patient retrieves clothing No items: Patient applies/removes LE Yes prosthesis or orthosis: Lower Body Dressing FIM Score 5. Supv./Set-Up ([place] sets out clothes or applies pros./orth.) - Labs CBC & Chem 7: 07/11/18 07:22 07/08/18 05:58 Labs: Laboratory Results - last 72 hr 07/08/18 07/08/18 07/09/18 16:39 20:56 00:37 WBC RBC Hgb Hct MCV MCH MCHC RDW Plt Count Lymph % (Auto) [place] % (Auto) Eos % (Auto) Baso % (Auto) Lymph # [place] # Eos # Baso # Seg Neutrophils % Seg Neutrophils # POC Glucose 162 H 362 H 64 L 07/09/18 07/09/18 07/09/18 01:13 06:51 08:00 WBC 9.9 RBC 3.71 Hgb 8.8 L Hct 29.2 L MCV 79 L MCH 24 L MCHC 30 L RDW 18.7 H Plt Count 704 H Lymph % (Auto) 20.4 [place] % (Auto) 6.1 Eos % (Auto) 3.9 Baso % (Auto) 1.0 Lymph # 2.0 [place] # 0.6 Eos # 0.4 Baso # 0.1 Seg Neutrophils % 68.6 Seg Neutrophils # 6.8 POC Glucose 109 H 188 H 07/09/18 07/09/18 07/09/18 12:28 17:12 21:31 WBC RBC Hgb Hct MCV MCH MCHC RDW Plt Count Lymph % (Auto) [place] % (Auto) Eos % (Auto) Baso % (Auto) Lymph # [place] # Eos # Baso # Seg Neutrophils % Seg Neutrophils # POC Glucose 233 H 267 H 181 H 07/10/18 07/10/18 07/10/18 07:15 07:42 11:54 WBC 6.8 RBC 3.54 L Hgb 8.7 L Hct 27.5 L MCV 78 L MCH 25 L MCHC 32 RDW 18.8 H Plt Count 692 H Lymph % (Auto) 22.7 [place] % (Auto) 7.0 Eos % (Auto) 5.2 H Baso % (Auto) 0.8 Lymph # 1.5 [place] # 0.5 Eos # 0.3 Baso # 0.1 Seg Neutrophils % 64.3 Seg Neutrophils # 4.4 POC Glucose 361 H 259 H 07/10/18 07/10/18 07/11/18 16:17 20:41 07:22 WBC 7.2 RBC 3.64 L Hgb 9.0 L Hct 28.5 L MCV 78 L MCH 25 L MCHC 32 RDW 19.2 H Plt Count 713 H Lymph % (Auto) 32.2 [place] % (Auto) 6.6 Eos % (Auto) 5.5 H Baso % (Auto) 0.9 Lymph # 2.3 [place] # 0.5 Eos # 0.4 Baso # 0.1 Seg Neutrophils % 54.8 Seg Neutrophils # 4.0 POC Glucose 167 H 225 H 07/11/18 07/11/18 08:29 12:04 WBC RBC Hgb Hct MCV MCH MCHC RDW Plt Count Lymph % (Auto) [place] % (Auto) Eos % (Auto) Baso % (Auto) Lymph # [place] # Eos # Baso # Seg Neutrophils % Seg Neutrophils # POC Glucose 192 H 183 H Assessment and Plan Z47.81 R BKA: Continue PT/OT to improve ability to transfer. Will attempt to get him fitted for prosthesis if time permits. Monitor surgical site. Maintain ROM. Stump protector. I10 Hypertension: continue medications and adjust as needed. Has been elevated on acute side - PRN ordered E10.65 Type 1 Diabetes: Carb controlled diet, manage Blood GLU levels and adjust insulin as needed., A1c 11.4. D62 ABLA, D50.9 Fe Def Anemia, D51.9: Mixed picture, replace iron and B12. monitor. Transfusion if <7. E46 Protein malnutrition: Supplements ordered, discussed with patient. D72.829 Leukocytosis: improving. afebrile. Does not appear septic. Monitor wounds and vitals. Start on Abx if signs point towards infectious cause. Z73.6 ADL dysfunction: OT will work on improving ability to perform ADLs (including assistive devices) to increase independence and decrease caregiver burden and improve functional transfers and mobility training. R26.2 Difficulty walking: PT will work on gait training if we can clear LLE wounds for prsthesis use and advance as appropriate to use of stairs and outside ambulation on uneven surfaces. Will see about being fitted for RLE prothesis. R26.89 Abnormality of gait: PT will work to improve safety and efficiency of gait through neuromotor training and gait training along with instruction on proper use of prosthesis if we can get them in time. M62.81 Muscle weakness: PT & OT will work on strengthening exercises to improve functional strength including mixture of closed and open kinetic chain exercises. R53.81 Debility: PT & OT will work on improving overall functional status to improve participation with ADLs, mobility and social involvement. R53.83 Fatigue: PT & OT will work on improving endurance through aerobic exercises and therapeutic activity while monitoring patients tolerance for activity and vital signs as needed. G54.7 Phantom sensation: +/- pain but not severe. Continue gabapentin, d esensitization. Repeat blood cultures no growth at 72 hours. Does not appear septic and remains afebrile. However 1 out of 2 cultures from acute care side resulted positive. DVT ppx: Lovenox Pain: Continue physical modalities in therapy and pain medications as needed to achieve functional pain control. Sleep: Monitor and address as needed. Bowel: Monitor and address as needed. Appetite: Monitor and address as needed. Discharge planning: Pending therapy progress and care plan meeting. Will continue discussion with therapy team, SW, patient and family. Restrictions/ Precautions: Falls WB status: NWB until prostheses are available and able to wear Functional Hx: ADLs: Independent Cognition: Independent Mobility: No AD Barriers to Discharge: Decreased mobility and ability to perform self care, balance deficits, weakness Estimated Length of Stay: 14 days Discharge Destination: Home with family
[2018-07-12] MEDS: NORCO 10/325 PO PRN ×4 (05:30→18:46)
[2018-07-12 07:53] LABS: BUN/Creatinine Ratio 41; Blood Urea Nitrogen 37 mg/dL (9-20); Calcium 9.2 mg/dL (8.4-10.2); Hemolysis Index 0
[2018-07-12] MEDS: LOVENOX SUB-Q SCH (09:48)
[2018-07-12] MEDS: VITAMIN C PO SCH ×2 (09:50→18:46)
[2018-07-12] MEDS: THERAGRAN Tab PO SCH (09:51)
[2018-07-12] MEDS: NORVASC PO SCH (09:52)
[2018-07-12] MEDS: NEURONTIN PO SCH ×3 (09:53→21:32)
[2018-07-12] MEDS: FEOSOL PO SCH ×2 (09:53→18:46)
[2018-07-12] MEDS: LOPRESSOR PO SCH ×2 (09:53→21:33)
[2018-07-12] MEDS: HumuLIN R SUB-Q SCH ×4 (09:54→21:35)
[2018-07-12] MEDS: LANTUS SUB-Q SCH ×2 (11:09→21:35)
[2018-07-13] MEDS: NORCO 10/325 PO PRN ×5 (02:35→23:11)
[2018-07-13] MEDS: THERAGRAN Tab PO SCH (08:39)
[2018-07-13] MEDS: VITAMIN C PO SCH ×2 (08:39→18:08)
[2018-07-13] MEDS: HumuLIN R SUB-Q SCH ×4 (08:40→23:03)
[2018-07-13] MEDS: NEURONTIN PO SCH ×3 (08:40→23:02)
[2018-07-13] MEDS: FEOSOL PO SCH ×2 (08:40→18:08)
[2018-07-13] MEDS: LOVENOX SUB-Q SCH (08:40)
[2018-07-13] MEDS: LOPRESSOR PO SCH ×2 (08:40→23:23)
[2018-07-13] MEDS: NORVASC PO SCH (08:40)
[2018-07-13] MEDS: LANTUS SUB-Q SCH ×2 (09:03→23:02)
[2018-07-13] MEDS ORDERED: NACL 0.9% 1000 ML 1,000 ML IV SCH (18:00)
[2018-07-14] MEDS: NORCO 10/325 PO PRN ×3 (03:43→21:55)
[2018-07-14] MEDS: HumuLIN R SUB-Q SCH ×4 (08:25→22:55)
[2018-07-14] MEDS: NORVASC PO SCH (08:26)
[2018-07-14] MEDS: THERAGRAN Tab PO SCH (08:26)
[2018-07-14] MEDS: NEURONTIN PO SCH ×3 (08:26→21:51)
[2018-07-14] MEDS: FEOSOL PO SCH ×2 (08:26→17:19)
[2018-07-14] MEDS: LOPRESSOR PO SCH ×2 (08:27→21:51)
[2018-07-14] MEDS: LOVENOX SUB-Q SCH (08:27)
[2018-07-14] MEDS: LANTUS SUB-Q SCH ×2 (08:28→22:38)
[2018-07-14] MEDS: VITAMIN C PO SCH ×2 (08:28→17:19)
[2018-07-15 05:20] LABS: BUN/Creatinine Ratio 22; Blood Urea Nitrogen 20 mg/dL (9-20); Calcium 9.2 mg/dL (8.4-10.2); Hemolysis Index 2
[2018-07-15] MEDS: NORCO 10/325 PO PRN ×3 (06:52→16:39)
[2018-07-15] MEDS: NEURONTIN PO SCH ×3 (07:16→21:36)
[2018-07-15] MEDS: NORVASC PO SCH (07:16)
[2018-07-15] MEDS: THERAGRAN Tab PO SCH (07:17)
[2018-07-15] MEDS: VITAMIN C PO SCH ×2 (07:17→16:39)
[2018-07-15] MEDS: LOPRESSOR PO SCH ×2 (07:17→21:38)
[2018-07-15] MEDS: LOVENOX SUB-Q SCH (07:17)
[2018-07-15] MEDS: FEOSOL PO SCH ×2 (07:17→18:48)
[2018-07-15] MEDS: HumuLIN R SUB-Q SCH ×4 (08:37→22:19)
[2018-07-15] MEDS: LANTUS SUB-Q SCH ×2 (09:05→22:18)
--- NOTE | 2018-07-15 10:18 | Progress Note ---
Subjective Date of service: 07/15/18 Principal diagnosis: R BKA Interval history: 47-year-old male with a left BKA who stated he been doing a lot of walking recently. He noticed his right toe had turned hard and black and sought assistance at the ER. 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 He underwent a guillotine procedure for for his right leg until it could be completed several days later. He underwent antibiotic treatment. His blood sugars were also difficult to control with frequent elevations into the 300 area. Do not see a recent A1c available in the system. He was previously independent. We will work with him to return to a level of independence and if time allows try to have him fitted for his right prosthesis with [employer] prosthetics. Wounds on the left stump will need to heal prior to being L use his left prosthesis again. Patient had some nausea and vomiting accompanied by a low blood sugar prior to being transferred to the rehabilitation unit which delayed his coming over. Per the patient and the nu rse seems like it may have been food related and he feels better now. Patient noted to have normal WBC on June 27 however all white count prior to that were elevated up to 37.7 at the high. WBC on 07/02 was 13.1, he has completed antibiotics we will monitor this for any continued elevation are signs of infectious process. Hemoglobin upon presentation and was 9.5 on June 23, and has slowly decreased to 8.8. We'll continue to monitor. Patient is participating in therapy and making reasonable progress. Taking rest breaks as needed. +BM. Denies palpitations, dyspnea, cough, N/V, weakness, or joint pain. Blood GLU elevated last night -patient ate high sugar content food. Discussed consistent choices. Will continue to monitor and adjust as needed for better control. Emphasized to patient that he will need to discuss with PCP and will need to eat consistent meals to keep GLU in target range. Again suggested follow up with ENDO to discuss possible Insulin pump use. Pain is better controlled. Tolerating diet. Contacted surgeon, deion to remain for 6wks. Will contact Yi for repair of stump protector. Discussed in team conference, making good progress. Will need time to heal wounds prior to use of prosthesis. Needs stable residence. All records, vitals, labs and medications were reviewed. No other issues per patient, nursing or therapy. Objective - Exam Narrative Exam: MUSCULOSKELETAL SPECIALTY EXAM CONSTITUTIONAL: Well developed, appropriately groomed EENT: EOMI. poor dentition, dentures at home, hearing intact to soft voice RESPIRATORY: Clear to ascultation bilaterally, no increased work of breathing CARDIOVASCULAR: Regular Rate/ Rhythm, no swelling, edema or tenderness in BUE or BLE. All extremities warm. GI: + bowel sounds, soft, NTTP, nondistended. INTEGUMENTARY: Normal, no lesion, rash, masses or bruising noted in extremities except for left lower extremity lesions and RLE surgical site. MUSCULOSKELETAL: BUE normal without defect, crepitus, subluxation, effusion, arthritic changes or TTP. BLE with bilateral BKA, right in stump protector BUE 4+/5, good ROM, with normal tone. BLE 4/5 good ROM, with normal tone NEURO: CN 2-12 grossly intact. Sensation intact in all extremities. No tremor noted in 4 extremities. POSTURE and GAIT: Sitting posture good. Balance appears reasonable. Unable to ambulate currently due to bilateral BKA, has prosthesis for left but multiple sores. PSYCH: Alert, orientated x3, affect appears normal. Insight appears intact. - Constitutional Vitals: Vital Signs - 12hr 07/14/18 07/15/18 22:55 07:16 Temperature 36.7 C Pulse Rate 80 Respiratory 17 18 Rate Blood Pressure 141/81 O2 Sat by Pulse 100 Oximetry - Allied health notes Allied health notes reviewed: nursing, PT, OT FIMS assessment as documented by PT/OT/ST: Grooming Patient cleans teeth/dentures: Yes: has no teeth, and does not have dentures. Cleans entire mouth /c clothe Patient osei/brushes hair: Yes Patient washes, rinses and Yes dries face: Patient washes, rinses and Yes dries hands: Patient shaves: No: doesn't shave, but presents with ability to shave Patient performs (no make-up/ 08/21 (100%) shaving): Grooming FIM Score 6. Modified [place] (Needs equipment/device . Extra time.) Toileting Toileting Device Urinal,Commode over Toilet,Grab Bar Patient able to: Clean self Patient able to perform: 2/3 (67%) Toileting FIM Score 6. Modified [place] (Needs equip. or prosth ./orth.) Social interaction/Memory/Problem solving Social Interaction FIM Score 7. Complete [place] (Interacts appropriately. Controls temper.) Memory FIM Score 7. Complete [place] (Remembers people and routines.) Problem Solving FIM Score 6. Mod. [place] (Mild difficulty or needs more time w/ complex.) Transfers Mode of Locomotion: Wheelchair Bed/Chair/Wheelchair Transfers 6. Modified [place] (Uses device, sliding FIM Score board, prosth./orth.) Toilet Transfers FIM Score 5. Supervision (Needs supervision or cueing.) Patient transferred to: Shower Shower Transfers FIM Score 4. Minimal Assistance (Patient = 75% or more. Needs touching.) Locomotion- Stairs Stairs FIM Score 0. Activity does not occur Locomotion- walk/wheelchair Most Frequent Mode of Wheelchair Locomotion: Walking FIM Score 0. Activity does not occur Wheelchair Propulsion Distance 500 Wheelchair FIM Score 6. Modified [place] (Wheels a minimum of 150 ft.) Eating Eating Device Adjusted Table Height Eating FIM Score 7. Complete [place] (Cuts meat, opens containers, regular diet.) Dressing-Upper body Patient retrieves clothing No items: Patient applies/removes UE n/a prosthesis or orthosis: Upper Body Dressing FIM Score 5. Supv./Set-Up ([place] sets out clothes or applies pros./orth.) Dressing-lower body Patient retrieves clothing No items: Patient applies/removes LE Yes prosthesis or orthosis: Lower Body Dressing FIM Score 5. Supv./Set-Up ([place] sets out clothes or applies pros./orth.) - Labs CBC & Chem 7: 07/11/18 07:22 07/15/18 04:50 Labs: Laboratory Results - last 72 hr 07/12/18 07/12/18 07/12/18 11:48 16:53 21:27 Sodium Potassium Chloride Carbon Dioxide Anion Gap BUN Creatinine Estimated GFR BUN/Creatinine Ratio Glucose POC Glucose 313 H 249 H 123 H Calcium 07/13/18 07/13/18 07/13/18 02:44 07:54 11:38 Sodium Potassium Chloride Carbon Dioxide Anion Gap BUN Creatinine Estimated GFR BUN/Creatinine Ratio Glucose POC Glucose 184 H 332 H 291 H Calcium 07/13/18 07/13/18 07/14/18 16:14 21:49 07:43 Sodium Potassium Chloride Carbon Dioxide Anion Gap BUN Creatinine Estimated GFR BUN/Creatinine Ratio Glucose POC Glucose 140 H 276 H 155 H Calcium 07/14/18 07/14/18 07/14/18 12:26 16:09 22:31 Sodium Potassium Chloride Carbon Dioxide Anion Gap BUN Creatinine Estimated GFR BUN/Creatinine Ratio Glucose POC Glucose 171 H 172 H 441 H Calcium 07/15/18 07/15/18 04:50 07:59 Sodium 141 Potassium 3.9 D Chloride 101.0 Carbon Dioxide 29 Anion Gap 15 BUN 20 Creatinine 0.9 Estimated GFR > 60 BUN/Creatinine Ratio 22 Glucose 151 H POC Glucose 106 H Calcium 9.2 Assessment and Plan Z47.81 R BKA: Continue PT/OT to improve ability to transfer. Will attempt to get him fitted for prosthesis if time permits. Monitor surgical site. Maintain ROM. Stump protector. I10 Hypertension: continue medications and adjust as needed. Has been elevated on acute side - PRN ordered E10.65 Type 1 Diabetes: Carb controlled diet, manage Blood GLU levels and adjust insulin as needed., A1c 11.4. D62 ABLA, D50.9 Fe Def Anemia, D51.9: Mixed picture, replace iron and B12. monitor. Transfusion if <7. E46 Protein malnutrition, moderate: Supplements ordered, discussed with patient. D72.829 Leukocytosis: improving. afebrile. Does not appear septic. Monitor wounds and vitals. Start on Abx if signs point towards infectious cause. Z73.6 ADL dysfunction: OT will work on improving ability to perform ADLs (including assistive devices) to increase independence and decrease caregiver burden and improve functional transfers and mobility training. R26.2 Difficulty walking: PT will work on gait training if we can clear LLE wounds for prsthesis use and advance as appropriate to use of stairs and outside ambulation on uneven surfaces. Will see about being fitted for RLE prothesis. R26.89 Abnormality of gait: PT will work to improve safety and efficiency of gait through neuromotor training and gait training along with instruction on proper use of prosthesis if we can get them in time. M62.81 Muscle weakness: PT & OT will work on strengthening exercises to improve functional strength including mixture of closed and open kinetic chain exercises. R53.81 Debility: PT & OT will work on improving overall functional status to improve participation with ADLs, mobility and social involvement. R53.83 Fatigue: PT & OT will work on improving endurance through aerobic exercises and therapeutic activity while monitoring patients tolerance for activity and vital signs as needed. G54.7 Phantom sensation: +/- pain but not severe. Continue gabapentin, desensitization. Repeat blood cultures no growth at 5 days. Does not appear septic and remains afebrile. Resolved DVT ppx: Lovenox Pain: Continue physical modalities in therapy and pain medications as needed to achieve functional pain control. Sleep: Monitor and address as needed. Bowel: Monitor and address as needed. Appetite: Monitor and address as needed. Discharge planning: Pending therapy progress and care plan meeting. Gary mathews discussion with therapy team, SW, patient and family. Restrictions/ Precautions: Falls WB status: NWB until prostheses are available and able to wear Functional Hx: ADLs: Independent Cognition: Independent Mobility: No AD Barriers to Discharge: Decreased mobility and ability to perform self care, balance deficits, weakness Estimated Length of Stay: 14 days. DC Discharge Destination: Home with family
[2018-07-16] MEDS: NORCO 10/325 PO PRN ×3 (04:31→20:41)
[2018-07-16] MEDS: NORVASC PO SCH (08:32)
[2018-07-16] MEDS: THERAGRAN Tab PO SCH (08:32)
[2018-07-16] MEDS: LOPRESSOR PO SCH ×2 (08:32→21:16)
[2018-07-16] MEDS: NEURONTIN PO SCH ×3 (08:33→20:41)
[2018-07-16] MEDS: LOVENOX SUB-Q SCH (08:33)
[2018-07-16] MEDS: VITAMIN C PO SCH ×2 (08:33→17:07)
[2018-07-16] MEDS: HumuLIN R SUB-Q SCH ×4 (08:34→22:50)
[2018-07-16] MEDS: LANTUS SUB-Q SCH ×2 (08:40→22:50)
[2018-07-16] MEDS: FEOSOL PO SCH ×2 (08:40→17:07)
[2018-07-17] MEDS: NORCO 10/325 PO PRN ×3 (03:02→16:18)
[2018-07-17] MEDS: HumuLIN R SUB-Q SCH ×4 (08:31→22:27)
[2018-07-17] MEDS: LANTUS SUB-Q SCH ×3 (08:32→22:26)
[2018-07-17] MEDS: FEOSOL PO SCH ×2 (08:48→16:23)
[2018-07-17] MEDS: NEURONTIN PO SCH ×3 (08:49→20:26)
[2018-07-17] MEDS: THERAGRAN Tab PO SCH (08:49)
[2018-07-17] MEDS: NORVASC PO SCH (08:49)
[2018-07-17] MEDS: LOVENOX SUB-Q SCH (08:50)
[2018-07-17] MEDS: LOPRESSOR PO SCH ×2 (08:50→22:27)
[2018-07-17] MEDS: VITAMIN C PO SCH ×2 (09:00→16:23)
[2018-07-17] MEDS: NORCO 5/325 PO PRN (20:25)
[2018-07-18] MEDS: NORCO 10/325 PO PRN (06:34)
[2018-07-18] MEDS: LOVENOX SUB-Q SCH (07:47)
[2018-07-18] MEDS: NEURONTIN PO SCH (07:47)
[2018-07-18] MEDS: FEOSOL PO SCH (07:47)
[2018-07-18] MEDS: THERAGRAN Tab PO SCH (07:47)
[2018-07-18] MEDS: VITAMIN C PO SCH (07:47)
[2018-07-18] MEDS: LOPRESSOR PO SCH (07:47)
[2018-07-18] MEDS: NORVASC PO SCH (07:47)
[2018-07-18 07:51] VITALS: BP 125/88
--- NOTE | 2018-07-18 09:20 | Discharge Summary ---
Providers - Providers Date of Admission: 07/03/18 19:42 Date of discharge: 07/17/18 Attending physician: DEVIN CASPER III, MD 07/03/18 15:54 Consult to Wound/ET Nurse [CONS] Routine Reason For Exam: wound eval Occupational Therapy Evaluate and Treat [CONS] Routine Comment: Reason For Exam: Eval & Treat ADL dysfunction Physical Therapy Evaluation and Treat [CONS] Routine Comment: Reason For Exam: Eval & Treat mobility dysfunction 07/03/18 16:04 Consult to Case Management [CONS] Routine Services Needed at Discharge: Home Health Services Notified:: cm notified 07/05/18 08:55 Consult to Dietitian/Nutrition [CONS] Routine Physician Instructions: Reason For Exam: Poor intake choices, prealbumin low, A1c 11.4 Reason for Consult: Diet education Primary care physician: MATIAS TIERNEY Hospitalization Reason for admission: Right BKA Condition: Good Hospital course: 47-year-old male with a left BKA who stated he been doing a lot of walking recently. He noticed his right toe had turned hard and black and sought assistance at the ER. 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 He underwent a guillotine procedure for for his right leg until it could be completed several days later. He underwent antibiotic treatment. His blood sugars were also difficult to control with frequent elevations into the 300 area. Do not see a recent A1c available in the system. He was previously independent. Wounds on the left stump will need to heal prior to being L use his left prosthesis again. Patient noted to have normal WBC on June 27 however all white count prior to that were elevated up to 37.7 at the high. WBC on 07/02 was 13.1, he has completed antibiotics we will monitor this for any continued elevation are signs of infectious process. Hemoglobin upon presentation and was 9.5 on June 23, and has slowly decreased to 8.8. We'll continue to monitor. A1c was elevated at 11.4. His blood GLU levels were frequently elevated above 300 followed by low values. Started on BID dosing of lantus and adjusted with better control. Encouraged him to discuss insulin pump with towel hemmer. Also encouraged him to eat a regular amount daily. Prealbumin and albumin were both decreased, started him on protein supplements. Iron and Vit B12 were also low and replacement was started. Hgb improved slightly by discharge day. Wounds were healing well and will need to continue being dressed and monitored. His vascular surgeon was contacted and stated to leave deion in place for 6 weeks. He should follow up with the surgeon for assessment and staple removal. At discharge he was MOD I for most ADLs. He is obviously limited in mobility due to inability to utilize his current prosthesis and inability to have his new prosthesis made yet due to wound healing of the current RLE BKA. He will maintain wheelchair level until he is able to utilize prosthesis again. His destination at discharge changed at the last minute due to inability of family to assist. He was delayed overnight and left the next morning to stay at a personal custodial until he was better able to care for himself. Disposition: DC/TX-06 HOME UNDER HOME [facility] Time spent for discharge: 35minutes - Discharge Diagnoses (1) Status post below knee amputation of right lower extremity Status: Acute (2) Acute blood loss as cause of postoperative anemia Status: Acute (3) HTN (hypertension) Status: Chronic Qualifiers: Hypertension type: essential hypertension Qualified Code(s): I10 - Essential (primary) hypertension (4) Type 1 diabetes Status: Chronic Qualifiers: Diabetes mellitus complication status: with circulatory complication Diabetes mellitus complication detail: with peripheral angiopathy with gangrene Qualified Code(s): E10.52 - Type 1 diabetes mellitus with diabetic peripheral angiopathy with gangrene Core Measure Documentation - Palliative Care Palliative Care/ Comfort Measures: Not Applicable - Core Measures Any of the following diagnoses?: none Exam - Physical Exam Narrative exam: MUSCULOSKELETAL SPECIALTY EXAM CONSTITUTIONAL: Well developed, appropriately groomed EENT: EOMI. poor dentition, dentures at home, hearing intact to soft voice RESPIRATORY: Clear to ascultation bilaterally, no increased work of breathing CARDIOVASCULAR: Regular Rate/ Rhythm, no swelling, edema or tenderness in BUE or BLE. All extremities warm. GI: + bowel sounds, soft, NTTP, nondistended. INTEGUMENTARY: Normal, no lesion, rash, masses or bruising noted in extremities except for left lower extremity lesions and RLE surgical site. MUSCULOSKELETAL: BUE normal without defect, crepitus, subluxation, effusion, arthritic changes or TTP. BLE with bilateral BKA, right in stump protector BUE 4+/5, good ROM, with normal tone. BLE 4/5 good ROM, with normal tone NEURO: CN 2-12 grossly intact. Sensation intact in all extremities. No tremor noted in 4 extremities. POSTURE and GAIT: Sitting posture good. Balance appears reasonable. Unable to ambulate currently due to bilateral BKA, has prosthesis for left but multiple sores. PSYCH: Alert, orientated x3, affect appears normal. Insight appears intact. - Constitutional Vitals: Temp Pulse Resp BP Pulse Ox 36.5 C 80 18 125/88 100 07/18/18 07:43 07/18/18 07:43 07/18/18 07:43 07/18/18 07:43 07/18/18 07:43 - Allied Health Allied health notes reviewed: nursing, PT, OT Plan Activity: fall precautions Weight Bearing Status: Non-Weight Bearing (BLE) Diet: diabetic Wound: keep clean and dry, change dressing (At least every other day), per your surgeon's advice (follow up with vascular surgeon, remove deion in 6wks per surgeon) Special Instructions: record blood sugar diary, physical therapy, home health RN Durable Medical Equipment Needed Upon Discharge: Wheelchair Follow up with: MATIAS TIERNEY MD [Primary Care Provider] - 7 Days MATIAS ZAMUDIO MD [Staff Physician] - 14 Days Prescriptions: amLODIPine [Norvasc] 10 mg PO QDAY #30 tablet Ascorbic Acid [Vitamin C] 500 mg PO BIDDIAB #60 tablet Ferrous Sulfate [Feosol 325 MG tab] 325 mg PO BIDDIAB #60 tablet Gabapentin [Neurontin] 600 mg PO TID 30 Days capsule hydrALAZINE [Apresoline TAB] 10 mg PO Q8HR PRN #90 tablet PRN Reason: HTN SBP>175 HYDROcodone/APAP 5-325 [Benzonia 5-325 mg TAB] 1 each PO Q6H PRN #30 tablet PRN Reason: Pain, Moderate (4-6) Insulin Glargine [Lantus VIAL] 8 units SUB-Q 0900,2100 30 Days units Insulin Regular, Human [HumuLIN R] See Protocol SUB-Q ACHS 30 Days units Metoprolol [Lopressor TAB] 25 mg PO BID #60 tablet Multivitamin Tab [Multiple Vitamin TAB (Theragran)] 1 each PO QDAY #30 tablet
== END 2018-07-18 10:30 | disposition home health service (06) | DRG 300 ==
LOC: 3A 14:35 → UNDOADMIN 14:35 → 3B 19:42
PROVIDERS: ADMIT Physical Medicine & Rehabilitation; ATTEND Physical Medicine & Rehabilitation
DX: E10.52 Type 1 diabetes mellitus with diabetic peripheral angiopathy with gangrene (principal); D62 Acute posthemorrhagic anemia; E46 Unspecified protein-calorie malnutrition; Z68.1 Body mass index [BMI] 19.9 or less, adult; Z47.81 Encounter for orthopedic aftercare following surgical amputation; R53.81 Other malaise; D72.829 Elevated white blood cell count, unspecified; I10 Essential (primary) hypertension; E10.65 Type 1 diabetes mellitus with hyperglycemia; Z89.511 Acquired absence of right leg below knee; Z82.49 Family history of ischemic heart disease and other diseases of the circulatory system; Z83.3 Family history of diabetes mellitus; Z84.1 Family history of disorders of kidney and ureter
CPT/HCPCS: 36415; 80048; 80053; 80061; 82607; 82747; 82962; 83036; 83550; 84134; 84466; 85025; 87040; G0378; G0515; J1650; J1815; J3420; J7030

== ENCOUNTER 2020-07-17 17:56 | Emergency (ER) | payer MEDICARE ==
--- NOTE | 2020-07-17 18:09 | Emergency Department Report ---
ED Altered Mental Status HPI - General Stated Complaint: LOW BLOOD SUGAR Time Seen by Provider: 07/17/20 18:00 Source: patient, EMS - History of Present Illness Initial Comments: 49-year-old male, history of hypertension, diabetes, bilateral BKA amputations, PE, presents to ED with altered mental status. Patient lives in a nursing home and was found unresponsive on the floor. Per EMS, patient last seen normal yesterday morning. Upon arrival, Accu-Chek read LOW. Patient was given 2 bags of D10. EMS also reports patient had pinpoint pupils and was given 4 mg of Narcan. Upon ED arrival, EMS reports patient is more alert than he was en route. Patient is able to state his name, date of , and current year. Patient denies any drug use. He reports taking only insulin earlier today. Patient reports he usually has an insulin pump, but it broke 2 days ago. Patient states it is possible that he gave himself an incorrect dose of insulin today, because he is so used to the pump administering it. Patient reports he has a follow-up appointment with his incident engineer in 3 days. Patient denies taking any PO diabetic medication. Patient's only complaint is that he is hungry and cold. Patient denies cough, fever, vomiting, diarrhea, abdominal pain, headache. MD Complaint: altered mental status -: unknown Severity: severe Context: diabetes Associated Symptoms: denies: chest pain, cough, fever/chills, headaches, nausea/vomiting, shortness of breath, diarrhea Treatments Prior to Arrival: glucose, other pre-hosp med (narcan) - Related Data Previous Rx's Medication Instructions Recorded Last Taken Type Ascorbic Acid [Vitamin C] 500 mg PO BIDDIAB #60 tablet 07/17/18 Unknown Rx Ferrous Sulfate [Feosol 325 MG tab] 325 mg PO BIDDIAB #60 tablet 07/17/18 Unknown Rx Gabapentin 600 mg PO TID 30 Days capsule 07/17/18 Unknown Rx HYDROcodone/APAP 5-325 [[place] 1 each PO Q6H PRN #30 tablet 07/17/18 Unknown Rx 5-325 mg TAB] Insulin Glargine [Lantus VIAL] 8 units SUB-Q 0900,2100 30 Days 07/17/18 Unknown Rx units Insulin Regular, Human [HumuLIN R] See Protocol SUB-Q ACHS 30 Days 07/17/18 Unknown Rx units Metoprolol [Lopressor TAB] 25 mg PO BID #60 tablet 07/17/18 Unknown Rx Multivitamin Tab [Multiple Vitamin 1 each PO QDAY #30 tablet 07/17/18 Unknown Rx TAB (Theragran)] amLODIPine 10 mg PO QDAY #30 tablet 07/17/18 Unknown Rx hydrALAZINE [Apresoline TAB] 10 mg PO Q8HR PRN #90 tablet 07/17/18 Unknown Rx Allergies Allergy/AdvReac Type Severity Reaction Status Date / Time No Known Allergies Allergy Verified 06/23/18 13:57 ED Review of Systems ROS: Stated complaint: LOW BLOOD SUGAR Other details as noted in HPI Comment: All other systems reviewed and negative Constitutional: denies: chills, fever Respiratory: denies: cough, shortness of breath Gastrointestinal: denies: abdominal pain, vomiting, diarrhea Neurological: denies: headache ED Past Medical Hx - Past Medical History Hx Hypertension: Yes Hx Heart Attack/AMI: No Hx Congestive Heart Failure: No Hx Diabetes: Yes (type 1) Hx Pulmonary Embolism: Yes (2013) Hx Liver Disease: No Hx Renal Disease: No Hx Sickle Cell Disease: No Hx Arthritis: Yes (present in back) Hx Seizures: No Hx Asthma: No Hx COPD: No Hx HIV: No Additional medical history: diabetic neuropathy - Surgical History Hx Pacemaker: No Additional Surgical History: ?abd surgery secondary to blockage. SPLEEN SURGERY. LEFT TOES AMPUTATED, Left BKA - Social History Smoking Status: Never Smoker - Medications Home Medications: Home Medications Medication Instructions Recorded Confirmed Last Taken Type Ascorbic Acid [Vitamin C] 500 mg PO BIDDIAB #60 tablet 07/17/18 Unknown Rx Ferrous Sulfate [Feosol 325 MG tab] 325 mg PO BIDDIAB #60 tablet 07/17/18 Unknown Rx Gabapentin 600 mg PO TID 30 Days capsule 07/17/18 Unknown Rx HYDROcodone/APAP 5-325 [[place] 1 each PO Q6H PRN #30 tablet 07/17/18 Unknown Rx 5-325 mg TAB] Insulin Glargine [Lantus VIAL] 8 units SUB-Q 0900,2100 30 Days 07/17/18 Unknown Rx units Insulin Regular, Human [HumuLIN R] See Protocol SUB-Q ACHS 30 Days 07/17/18 Unknown Rx units Metoprolol [Lopressor TAB] 25 mg PO BID #60 tablet 07/17/18 Unknown Rx Multivitamin Tab [Multiple Vitamin 1 each PO QDAY #30 tablet 07/17/18 Unknown Rx TAB (Theragran)] amLODIPine 10 mg PO QDAY #30 tablet 07/17/18 Unknown Rx hydrALAZINE [Apresoline TAB] 10 mg PO Q8HR PRN #90 tablet 07/17/18 Unknown Rx ED Physical Exam - General General appearance: alert, in no apparent distress - Head Head exam: Present: atraumatic, normocephalic - Eye Eye exam: Present: normal appearance, EOMI - ENT ENT exam: Present: mucous membranes moist - Neck Neck exam: Present: normal inspection - Respiratory Respiratory exam: Present: normal lung sounds bilaterally. Absent: respiratory distress - Cardiovascular Cardiovascular Exam: Present: regular rate, normal rhythm - GI/Abdominal GI/Abdominal exam: Present: soft. Absent: distended, tenderness - Extremities Exam Extremities exam: Present: other (bilateral BKA's present) - Neurological Exam Neurological exam: Present: alert, oriented X3, CN II-XII intact. Absent: motor sensory deficit - Psychiatric Psychiatric exam: Present: normal affect, normal mood - Skin Skin exam: Present: warm, dry, intact, normal color ED Course Vital Signs 07/17/20 07/17/20 07/17/20 17:56 18:06 18:47 Temperature Pulse Rate 74 76 Respiratory 12 12 14 Rate Blood Pressure 163/91 Blood Pressure [Left] O2 Sat by Pulse 99 99 100 Oximetry 07/17/20 07/17/20 18:48 18:49 Temperature 91.8 F L Pulse Rate Respiratory Rate Blood Pressure Blood Pressure 134/82 [Left] O2 Sat by Pulse Oximetry - Reevaluation(s) Reevaluation #1: 07/17/20 19:09 Pt currently A&O x 3. GCS 15. No neuro deficits. Conversing normally. - Lab Data Result diagrams: 07/17/20 18:09 07/17/20 18:09 Lab Results 07/17/20 07/17/20 07/17/20 Range/Units 18:09 18:09 18:30 WBC 6.4 (4.5-11.0) K/mm3 RBC 4.06 (3.65-5.03) M/mm3 Hgb 12.3 (11.8-15.2) gm/dl Hct 38.4 (35.5-45.6) % MCV 95 H (84-94) fl MCH 30 (28-32) pg MCHC 32 (32-34) % RDW 17.3 H (13.2-15.2) % Plt Count 254 (140-440) K/mm3 Lymph % (Auto) 25.6 (13.4-35.0) % Lewis % (Auto) 8.4 H (0.0-7.3) % Eos % (Auto) 6.2 H (0.0-4.3) % Baso % (Auto) 0.6 (0.0-1.8) % Lymph # (Auto) 1.6 (1.2-5.4) K/mm3 Lewis # (Auto) 0.5 (0.0-0.8) K/mm3 Eos # (Auto) 0.4 (0.0-0.4) K/mm3 Baso # (Auto) 0.0 (0.0-0.1) K/mm3 Seg Neutrophils % 59.2 (40.0-70.0) % Seg Neutrophils # 3.8 (1.8-7.7) K/mm3 Sodium 141 (137-145) mmol/L Potassium 3.3 L (3.6-5.0) mmol/L Chloride 103.0 (98-107) mmol/L Carbon Dioxide 32 H (22-30) mmol/L Anion Gap 9 mmol/L BUN 8 L (9-20) mg/dL Creatinine 0.7 L (0.8-1.3) mg/dL Estimated GFR > 60 ml/min BUN/Creatinine Ratio 11 % Glucose 75 (75-100) mg/dL POC Glucose 126 H (70-105) mg/dL Calcium 8.5 (8.4-10.2) mg/dL Total Bilirubin < 0.20 (0.1-1.2) mg/dL Direct Bilirubin < 0.2 (0-0.2) mg/dL Indirect Bilirubin 0.0 mg/dL AST 50 H (5-40) units/L ALT 43 (7-56) units/L Alkaline Phosphatase 71 (35-129) units/L Total Protein 6.4 (6.3-8.2) g/dL Albumin 3.6 L (3.9-5) g/dL Albumin/Globulin Ratio 1.3 % - Radiology Data Radiology results: report reviewed, image reviewed - Medical Decision Making 49-year-old male with history of diabetes presents to ED due to altered mental status secondary to hypoglycemia. Upon EMS arrival, Accu-Chek was reading low. Patient states he usually wears a insulin pump, however it broke 2 days ago, so today he had to self administer insulin. Patient believes he may have possibly taken too much insulin without eating. Patient is currently euglycemic. CT head negative for any acute findings. Chest x-ray is also unremarkable. Labs show slight hypokalemia which has been replaced. Patient given a snack bag and also half amp of D50. Accu-Cheks here in the ED have been normal. Upon arriva l, initial temperature was 91.8, with patient complaining of being cold. This is likely secondary to patient being hypoglycemic and lying on the floor of his home for an unknown amount of time. Patient given blankets, reports he is feeling better. Patient will be discharged at this time. He reports that he has a follow-up appointment with his incident engineer on Saturday. Return precautions given. Critical care attestation.: If time is entered above; I have spent that time in minutes in the direct care of this critically ill patient, excluding procedure time. ED Disposition Clinical Impression: Hypoglycemia Disposition: DC-01 TO HOME OR SELFCARE Is pt being admited?: No Condition: Stable Instructions: Hypoglycemia, [id number] Referrals: PRIMARY CARE, [Referring] - 3-5 Days
--- NOTE | 2020-07-17 18:30 | XRay Report ---
CHEST 1 VIEW INDICATION: AMS. COMPARISON: None. FINDINGS: Support devices: None. Heart: Normal. Lungs/Pleura: Low lung volumes with mild atelectatic changes in the bases. No pleural abnormality. IMPRESSION: 1. No acute findings. Signer Name: Yosvany Marinelli MD Signed: 07/17/2020 6:25 PM Workstation Name: [id number]
[2020-07-17 18:45] LABS: Basophils % (Auto) 0.6 % (0.0-1.8); Eosinophils # (Auto) 0.4 K/mm3 (0.0-0.4); Eosinophils % (Auto) 6.2 % (0.0-4.3); Hematocrit 38.4 % (35.5-45.6); Hemoglobin 12.3 gm/dl (11.8-15.2); Lymphocytes # (Auto) 1.6 K/mm3 (1.2-5.4); Lymphocytes % (Auto) 25.6 % (13.4-35.0); Mean Corpuscular HGB Conc 32 % (32-34); Mean Corpuscular Volume 95 fl (84-94); Monocytes # (Auto) 0.5 K/mm3 (0.0-0.8); Monocytes % (Auto) 8.4 % (0.0-7.3); Platelet Count 254 K/mm3 (140-440); Red Blood Count 4.06 M/mm3 (3.65-5.03); Red Cell Distribution Width 17.3 % (13.2-15.2)
[2020-07-17 18:49] VITALS: BP 134/82
--- NOTE | 2020-07-17 19:00 | Cat Scan Report ---
CT BRAIN: 07/17/2020 INDICATION / CLINICAL INFORMATION: AMS. COMPARISON: None available. FINDINGS: BRAIN/INTRACRANIAL STRUCTURES: Unenhanced CT images of the brain demonstrate no evidence of acute int racranial abnormality. Ventricles and sulci are slightly prominent in size for a patient of this age, atrophy. There is no CT evidence of acute large vessel territory ischemic injury, hemorrhage, or mass. A small chronic lacunar infarct is present in the right basal ganglia. There are no abnormal extra-axial fluid collections. Atherosclerotic vascular calcifications are present in the distal internal carotid arteries and verte bral arteries. EXTRACRANIAL STRUCTURES: Unremarkable. IMPRESSION: No acute abnormality. All CT scans at this location are performed using dose reduction to ALARA by means of automated expos ure control. Signer Name: Ino Madrigal MD Signed: 07/17/2020 6:56 PM Workstation Name: [id number]
[2020-07-17 19:02] LABS: Alanine Aminotransferase 43 units/L (7-56); Albumin 3.6 g/dL (3.9-5); BUN/Creatinine Ratio 11; Bilirubin,Direct < 0.2 mg/dL (0-0.2); Blood Urea Nitrogen 8 mg/dL (9-20); Calcium 8.5 mg/dL (8.4-10.2); Hemolysis Index 3
[2020-07-17] MEDS ORDERED: POTASSIUM CHLORIDE ER 20 MEQ TAB PO ONE (19:07)
[2020-07-17] MEDS ORDERED: DEXTROSE 50% IN WATER (25GM) 50 ML SYRINGE IV ONE (19:43)
== END 2020-07-17 21:51 | disposition home or self-care (01) ==
LOC: ED 17:56
DX: E10.649 Type 1 diabetes mellitus with hypoglycemia without coma (principal); I10 Essential (primary) hypertension; M19.91 Primary osteoarthritis, unspecified site; Z86.711 Personal history of pulmonary embolism; Z98.890 Other specified postprocedural states; Z79.4 Long term (current) use of insulin; Z79.899 Other long term (current) drug therapy
CPT/HCPCS: 36415; 70450; 71045; 80048; 80076; 82962; 85025; 96374

== ENCOUNTER 2020-08-11 10:39 | Outpatient (CLI) | payer MEDICARE ==
--- NOTE | 2020-08-11 12:16 | Ultrasound Report ---
ULTRASOUND EXTREMITY NONVASCULAR LEFT HISTORY: Left shoulder mass. Patient is status post removal of lipoma about 3 months ago per patient. Same area swollen after stitches healed. TECHNIQUE: Grayscale ultrasound with color Doppler imaging COMPARISON: No relevant comparison IMPRESSION: Targeted ultrasound was performed at the left shoulder at the site of the palpable lesion. The images demonstrate a 2.7 x 0.6 x 0.9 cm lesion with similar echogenicity to fat. No internal perfusion on c olor Doppler imaging. No cystic change. This has the appearance of a recurrent or residual lipoma. Pl ease correlate with the patient's clinical presentation. Signer Name: Elmer Neumann Jr, MD Signed: 08/11/2020 12:11 PM Workstation Name: [id number]
== END 2020-08-11 10:40 | disposition home or self-care (01) ==
LOC: US 10:39
PROVIDERS: ATTEND Family Medicine
DX: D17.9 Benign lipomatous neoplasm, unspecified (principal)

== ENCOUNTER 2020-09-06 08:07 | Day surgery (SDC) | payer MEDICARE ==
[~2020-09-06 08:07] MED LIST changes: +BUPIVACAINE/PF (0.5%) 5 MG/1 ML 30 ML VIAL INFILTRATI ONE; -CYCLOGYL ONE; -CYCLOGYL OU ONE; -GONAK ONE; -GONAK OU ONE; -IOPIDINE ONE; -IOPIDINE OS ONE; +LIDOCAINE (1%) 10 MG/1 ML VIAL 20 ML MDV INFILTRATI ONE; -MYDRIACYL ONE; -MYDRIACYL OS ONE; -NEOFRIN ONE; -NEOFRIN OS ONE; -PONTOCAINE IJ ONE; +SODIUM CHLORIDE 0.9% IRR 1,500 ML BOTTLE IR ONE; -TETRACAINE 0.5% ONE; -TOBRADEX ONE; -TOBRADEX OS ONE; -XYLOCAINE 2%/ EPI 1:200,000 INFILTRATI ONE; -XYLOCAINE 2%/EPI 1:100,000 INFILTRATI ONE
[2020-09-06] MEDS ORDERED: LIDOCAINE (1%) 10 MG/1 ML VIAL 20 ML MDV ONE (08:29)
[2020-09-06] MEDS ORDERED: BUPIVACAINE/PF (0.5%) 5 MG/1 ML 30 ML VIAL INFILTRATI ONE ×3 (08:29→10:52)
[2020-09-06] MEDS ORDERED: ceFAZolin/STERILE WATER 2 GM/20 ML SYRINGE IV NR (09:00)
[2020-09-06] MEDS ORDERED: INSULIN LISPRO 100 UNIT/ML SUB-Q SCH (09:45)
[2020-09-06] MEDS ORDERED: MIDAZOLAM 2 MG/2 ML INJ IV NR (09:46)
[2020-09-06] MEDS ORDERED: ONDANSETRON 4 MG/2 ML INJ IV PRN (09:47)
[2020-09-06] MEDS ORDERED: HYDROmorphone 1 MG/1 ML INJ IV PRN ×2 (09:47)
--- NOTE | 2020-09-06 09:48 | Anesthesia Day of Surgery ---
Anesthesia Day of Surgery - Day of Surgery Patient Examined: Yes Patient H&P Reviewed: Yes Patient is NPO: Yes
--- NOTE | 2020-09-06 09:53 | Anesthesia Consultation ---
Anesthesia Consult and Med Hx Date of service: 09/06/20 - Airway Anesthetic Teeth Evaluation: Dentures, Edentulous ROM Head & Neck: Adequate Mental/Hyoid Distance: Adequate Mallampati Class: Class II Intubation Access Assessment: Good - Pre-Operative Health Status ASA Pre-Surgery Classification: ASA4 Proposed Anesthetic Plan: MAC (GA if needed) - Pulmonary Hx Smoking: Yes (marijuana - stopped 08/22/20) Hx Asthma: No Hx Respiratory Symptoms: No SOB: No COPD: No Hx Pneumonia: No Hx Sleep Apnea: No - Cardiovascular System Hx Heart Attack/AMI: No Hx Angina: No Hx Percutaneous Transluminal Coronary Angioplasty (PTCA): No Hx Cardia Arrhythmia: Yes (sinus tachycardia) Hx Pacemaker: No Hx Peripheral Vascular Disease: Yes (s/p bilateral BKA) - Central Nervous System Hx Neuromuscular Disorder: Yes (peripheral neuropathy) Hx Seizures: No CVA: No Hx Back Pain: Yes Hx Psychiatric Problems: No - Gastrointestinal Hx Gastroesophageal Reflux Disease: No - Endocrine Hx Renal Disease: No Hx End Stage Renal Disease: No Hx Liver Disease: No Hx Insulin Dependent Diabetes: Yes (elevated blood glucose this admission) Hx Thyroid Disease: No - Hematic Hx Anemia: No Hx Sickle Cell Disease: No - Other Systems Hx Alcohol Use: Yes (beer) Hx Substance Use: Yes (hx marijuana use stopped 08/22/20) Hx Cancer: No Hx Obesity: No - Additional Comments Anesthesia Medical History Comments: Patient turned off his insulin pump last night and FBS is now 473
[2020-09-06] MEDS ORDERED: SODIUM CHLORIDE 0.9% 1000 ML 1,000 ML IV SCH (10:00)
[2020-09-06] MEDS ORDERED: propofoL 200 MG/20 ML VIAL IV ONE ×2 (10:22→10:48)
[2020-09-06] MEDS ORDERED: SODIUM CHLORIDE 0.9% 100 ML ONE (10:24)
[2020-09-06] MEDS ORDERED: LIDOCAINE MPF (2%) 20 MG/1 ML VIAL 5 ML ONE (10:30)
[2020-09-06] MEDS ORDERED: fentaNYL 250 MCG/5 ML INJ ONE (10:31)
[2020-09-06] MEDS ORDERED: fentaNYL 100 MCG/2 ML INJ ONE (10:37)
[2020-09-06] MEDS ORDERED: SODIUM CHLORIDE 0.9% IRR 1,500 ML BOTTLE IR ONE (10:52)
[2020-09-06] MEDS ORDERED: LIDOCAINE (1%) 10 MG/1 ML VIAL 20 ML MDV INFILTRATI ONE ×2 (10:52)
[2020-09-06] MEDS ORDERED: HYDROmorphone 1 MG/1 ML INJ ONE (11:14)
--- NOTE | 2020-09-06 12:02 | Short Stay Summary ---
Short Stay Documentation Date of service: 09/06/20 - History Principal diagnosis: recurrent left shoulder soft tissue mass H&P: obtained from office - Allergies and Medications Current Medications: Allergies No Known Allergies Allergy (Verified 06/23/18 13:57) Home Medications Medication Instructions Recorded Confirmed Last Taken Type Multivitamin Tab [Multiple Vitamin 1 each PO QDAY #30 tablet 07/17/18 08/29/20 09/05/20 Rx TAB (Theragran)] AtorvaSTATin [Lipitor] 20 mg PO QHS 08/29/20 08/29/20 09/05/20 History Gabapentin 800 mg PO QID 08/29/20 08/29/20 09/05/20 History Insulin Glargine,Hum.rec.anlog 20 unit SQ PRN PRN 08/29/20 09/06/20 Unknown History [Lantus Solostar] Lispro Insulin [HumaLOG] 0 unit SQ QDAY 08/29/20 08/29/20 09/05/20 History Travoprost 2.5 ml OP QHS 08/29/20 08/29/20 09/05/20 History Active Medications Cefazolin Sodium (Cefazolin/Sterile Water 2 Gm/20 Ml Syringe) 2 gm IV PREOP NR Stop: 09/06/20 20:00 Hydromorphone HCl (Hydromorphone 1 Mg/1 Ml Inj) 0.5 mg IV Q10MIN PRN PRN Reason: Pain , Severe (7-10) Stop: 09/06/20 23:00 Hydromorphone HCl (Hydromorphone 1 Mg/1 Ml Inj) 0.25 mg IV Q10MIN PRN PRN Reason: Pain, Moderate (4-6) Stop: 09/06/20 23:00 Sodium Chloride (Nacl 0.9% 1000 Ml) 1,000 mls @ 75 mls/hr IV DIRECT SERGEY Last Admin: 09/06/20 10:00 Dose: 75 mls/hr Documented by: Midazolam HCl (Midazolam 2 Mg/2 Ml Inj) 2 mg IV ONCE NR Stop: 09/06/20 13:00 Last Admin: 09/06/20 10:03 Dose: 2 mg Documented by: Ondansetron HCl (Ondansetron 4 Mg/2 Ml Inj) 4 mg IV ONCE PRN PRN Reason: Nausea And Vomiting Stop: 09/06/20 16:00 - Brief post op/procedure progress note Date of procedure: 09/06/20 Pre-op diagnosis: recurrent left shoulder soft tissue mass Post-op diagnosis: same Procedure: excision recurrent soft tissue mass of left shoulder Anesthesia: MAC, local Findings: 10 x8.5 cm lobulated mass of left shoulder within the subcutaneous tissue and extending to but not through fascia - clear planes between fascia and mass. C hronic scarring at the superficial border of the mass near skin. Surgeon: JYOTSNA PEÑA Estimated blood loss: minimal Pathology: list (soft tissue mass left shoulder - Marked: 1. short stitch superior margin, 2. Long stitch lateral margin, 3. single stitch left lower anterior margin) - Hospital course Hospital course: Pt observed in PACU and discharged to home in stable condition when criteria met - Disposition Condition at discharge: Good Disposition: DC-01 TO HOME OR SELFCARE Short Stay Discharge Plan Activity: other (Avoid flexing or extending shoulder. Keep sling on at all times during the day. May be removed during sleep and showers. ) Diet: regular Wound: per your surgeon's advice (Keep dressing on area for the next 7 days until you have followed up with surgeon. May shower tomorrow but keep left shoulder out of direct path of water.) Follow up with: MABLE MAIER JR, MD [Primary Care Provider] - 7 Days JYOTSNA PEÑA DO [Staff Physician] - 7 Days Prescriptions: HYDROcodone/APAP 5-325 [Rives 5/325] 1 each PO Q6HR PRN #20 tablet PRN Reason: Pain , Severe (7-10)
[2020-09-06] MEDS ORDERED: INSULIN LISPRO 100 UNIT/ML SUB-Q ONE (12:35)
[2020-09-06 13:02] VITALS: BP 141/86
[2020-09-06] MEDS ORDERED: HYDROcodone/ACETAMINOPHEN 5-325 MG TAB PO PRN (13:14)
--- NOTE | 2020-09-06 15:25 | Post Anesthesia Evaluation ---
- Post Anesthesia Evaluation Patient Participated: Yes Airway Patent: Yes Stable Respiratory Function: Yes Nausea/Vomiting: No Temp > 96.8F: Yes Pain Manageable: Yes Adequeate Hydration: Yes Anesthesia Complications: No Block Receding Appropriately: Not Applicable Patient on Ventilator: No
--- NOTE | 2020-09-07 11:19 | Operative Report ---
Operative Report Operative Report: Date of procedure: 09/06/20 Pre-op diagnosis: recurrent left shoulder soft tissue mass Post-op diagnosis: same Procedure: excision recurrent soft tissue mass of left shoulder Anesthesia: MAC, local Findings: 10 x8.5 cm lobulated mass of left shoulder within the subcutaneous tissue and extending to but not through fascia - clear planes between fascia and mass. Chronic scarring at the superficial border of the mass near skin. Surgeon: JYOTSNA PEÑA Estimated blood loss: minimal Pathology: list (soft tissue mass left shoulder - Marked: 1. short stitch superior margin, 2. Long stitch lateral margin, 3. single stitch left lower anterior margin) Hospital course: Pt observed in PACU and discharged to home in stable condition when criteria met HPI and indication: Patient is a 49-year-old male with soft tissue mass of the left anterior shoulder/upper arm presents to surgery clinic for evaluation. 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 He states that the mass was a lipoma but recurred almost immed iately. An ultrasound showed a lobulated fatty mass likely lipoma. It was recommended that the mass be removed. All risk, benefits, terms of surgery were discussed with the patient questions answered. Consent was obtained in the office. Uterine detail: The patient was identified in the preoperative area, and the operative site marked. He was taken back to the operating room and placed on the operating room table in supine position. The left shoulder was bumped up using pillows. Anesthesia was induced. The area was prepped and draped usual sterile fashion timeout was performed. Local anesthetic was infiltrated to skin at the intended incision site. An elliptical incision was made along the axis of the arm, at the site of the soft tissue mass in order to excise the old scar. Dissection was then carried down through the skin and subcutaneous tissues with electrocautery until the mass was encountered. A wide local excision was performed with a margin of subcutaneous tissue excised along with the mass. The mass extended down to the fascia but not through it. The muscle was not involved. There was a clear plane between the mass and the fascia and the mass was dissected from the fascia using electrocautery. The soft tissue mass measured approximately 10 x 8.5 cm, was lobulated and appeared to be a lipoma. There was a small portion of abnormal appearing subcutaneous tissue that appeared to be part of the mass that was excised separately. This was located in the left lower anterior margin. The 10 cm mass was marked with 1 short double tail stitch in the superior margin and a long double tail stitch in the lateral margin. The extra subcutaneous tissue excised from the left lower anterior margin was marked with a single stitch. The specimens were sent to pathology for evaluation. The wound was then irrigated and hemostasis very carefully ensured. The wound was closed in layered fashion. The deep dermal layer was closed using interrupted 3-0 Vicryl U stitches. The skin was approximated using 4-0 Monocryl subcuticular running stitch and skin glue. There was no tension on the incision. Once the glue was dry, a folded up 4 x 4 gauze was placed over the incision and secured with Elastoplast tape. A sling was applied to the patient. At the end of the case all sponge, instrument, sharp counts were correct x2. The patient was awoken from anesthesia and taken to PACU in stable condition.
== END 2020-09-06 13:45 | disposition home or self-care (01) ==
LOC: OR 08:07
PROVIDERS: ATTEND Surgery
DX: M79.89 Other specified soft tissue disorders (principal); L90.5 Scar conditions and fibrosis of skin; L92.8 Other granulomatous disorders of the skin and subcutaneous tissue; E11.51 Type 2 diabetes mellitus with diabetic peripheral angiopathy without gangrene; M19.90 Unspecified osteoarthritis, unspecified site; Z91.81 History of falling; Z83.3 Family history of diabetes mellitus; Z72.89 Other problems related to lifestyle; Z79.899 Other long term (current) drug therapy; Z82.49 Family history of ischemic heart disease and other diseases of the circulatory system; Z97.4 Presence of external hearing-aid; Z87.01 Personal history of pneumonia (recurrent); Z89.511 Acquired absence of right leg below knee; Z86.711 Personal history of pulmonary embolism
CPT/HCPCS: 11406; 12034; 82962; 88307; J0690; J1170; J2250; J2704; J3010; J7030; J1815

== ENCOUNTER 2020-11-07 09:24 | Outpatient (CLI) | payer MEDICARE ==
--- NOTE | 2020-11-07 10:36 | Ultrasound Report ---
ULTRASOUND UNLISTED PROCEDURE, BACK HISTORY: Benign lipomatous neoplasm of skin TECHNIQUE: Grayscale ultrasound with color Doppler imaging COMPARISON: 08/11/2020. FINDINGS: Targeted ultrasound was performed in the mid to lower back at the site of the palpable abno rmality per the patient. The technologist could not feel anything in this area. Ultrasound images dem onstrate no evidence for mass or fluid collection in this area. There is a 3 mm echogenic area which may represent a small sebaceous cyst or possibly a suture line. There is certainly no aggressive appe aring mass, well-defined lipoma or fluid collection. Signer Name: Elmer Neumann Jr, MD Signed: 11/07/2020 10:32 AM Workstation Name: [id number]
== END 2020-11-07 09:25 | disposition home or self-care (01) ==
LOC: US 09:24
PROVIDERS: ATTEND Surgery
DX: D17.1 Benign lipomatous neoplasm of skin and subcutaneous tissue of trunk (principal)
CPT/HCPCS: 76999